=== PATIENT | female | born 1940 | race African-American/Black ===

== ENCOUNTER 2017-05-05 22:26 | Emergency (ER) | payer OTHER ==
[2017-05-05 22:40] VITALS: BP 175/86; PULSE 78; TEMP 98.5; BMI 33.8
--- NOTE | 2017-05-05 22:48 | PDOC ---
History of Present Illness - General Chief Complaint: Palpitations Stated Complaint: CHEST PAIN Time Seen by Provider: 05/05/17 22:48 - History of Present Illness Initial Comments: 05/05/17 22:55 Ms. Contreras is a 77 yo female w/ pmh of HTN, HLD, DM, CAD s/p CABG x [address] [facility], PCI with JESI SVG-OM 2011, cath 05/2014 with patent stent and grafts, 11/2015 nuclear stress test showing mild anteroapical ischemia managed with anti- anginals, and cardiac cath 03/02/16 who reports c/o a 2 hour history of palpitations and chest tightness. She says that she was reading a book when her heart started pounding radiating to her ears and she experienced the tightness in her chest. She says this has happened before but that it always resolved. She is also currently experiencing urinary frequency. The patient denies headache and dizziness. Denies fever, chills, nausea, vomit, diarrhea and constipation. Denies dysuria, urgency and hematuria. Allergies: NKDA Past History - Past Medical History Allergies/Adverse Reactions: Allergies Allergy/AdvReac Type Severity Reaction Status Date / Time No Known Allergies Allergy Verified 03/01/16 14:38 Home Medications: Ambulatory Orders Simvastatin [Zocor -] 40 mg PO HS 12/27/13 Valsartan [Diovan] 320 mg PO DAILY 12/27/13 Hydrochlorothiazide [Hctz -] 25 mg PO DAILY #30 tablet 01/22/14 Insulin Glargine,Hum.rec.anlog [Lantus (10mL VIAL) -] 28 units SQ HS #0 Acarbose [Precose -] 50 mg PO TID 05/21/14 Aspirin [ASA -] 81 mg PO DAILY #7 tab.chew 05/24/14 Glipizide [Glucotrol -] 10 mg PO BIDAC #7 tablet 05/24/14 Insulin Sliding Scale [Novolog Vial Sliding Scale -] 0 units SQ ACHS 7 Days pen 05/24/14 Isosorbide Mononitrate [Imdur -] 90 mg PO DAILY 05/18/15 Metoprolol Succinate [Toprol Xl -] 50 mg PO DAILY 03/01/16 Nitrofurantoin Monohyd/M-Cryst [Macrobid -] 100 mg PO BID #14 capsule 05/06/17 Anemia: No Asthma: No Cardiac Disorders: Yes (CORONARY ARTERIOSCLEROSIS) CVA: No COPD: No CHF: No Dementia: No Diabetes: Yes (NIDD) GI Disorders: Yes (gerd, hiatal hernia,rectal hemorrhage,gastritis) Disorders: No HTN: Yes Hypercholesterolemia: Yes Liver Disease: No Seizures: No Thyroid Disease: No - Surgical History Abdominal Surgery: Yes Appendectomy: No Cardiac Surgery: Yes (triple bypass,cardiac stents) Cholecystectomy: No Lung Surgery: No Neurologic Surgery: No Orthopedic Surgery: No - Immunization History Immunization Up to Date: Yes - Suicide/Smoking/Psychosocial Hx Smoking Status: No Smoking History: Never smoked Have you smoked in the past 12 months: No Number of Cigarettes Smoked Daily: 0 If you are a former smoker, when did you quit?: Over 30 years ago Information on smoking cessation initiated: No Hx Alcohol Use: No Drug/Substance Use Hx: No Substance Use Type: None Hx Substance Use Treatment: No Review of Systems - Review of Systems Comments:: 05/05/17 23:09 GENERAL/CONSTITUTIONAL: No fever or chills. No weakness. HEAD, EYES, EARS, NOSE AND THROAT: No change in vision. No ear pain or discharge. No sore throat. CARDIOVASCULAR: +Resolving tightness/palpitations as described. No chest pain or shortness of breath RESPIRATORY: No cough, wheezing, or hemoptysis. GASTROINTESTINAL: No nausea, vomiting, diarrhea or constipation. GENITOURINARY: +Current urinary frequency MUSCULOSKELETAL: No joint or muscle swelling or pain. No neck or back pain. SKIN: No rash NEUROLOGIC: No headache, vertigo, loss of consciousness, or change in strength/ sensation. ENDOCRINE: No increased thirst. No abnormal weight change HEMATOLOGIC/LYMPHATIC: No anemia, easy bleeding, or history of blood clots. ALLERGIC/IMMUNOLOGIC: No hives or skin allergy. *Physical Exam - Vital Signs Last Vital Signs Temp Pulse Resp BP Pulse Ox 98.5 F 78 18 175/86 97 05/05/17 22:31 05/05/17 22:31 05/05/17 22:31 05/05/17 22:31 05/05/17 22:31 - Physical Exam Comments: 05/05/17 23:10 GENERAL: Awake, alert, and fully oriented, in no acute distress HEAD: No signs of trauma, normocephalic, atraumatic EYES: PERRLA, EOMI, sclera anicteric, conjunctiva clear ENT: Auricles normal inspection, hearing grossly normal, nares patent, oropharynx clear without exudates. Moist mucosa NECK: Normal ROM, supple, no lymphadenopathy, JVD, or masses LUNGS: No distress, speaks full sentences, clear to auscultation bilaterally HEART: Regular rate and rhythm, normal S1 and S2, no murmurs, rubs or gallops, peripheral pulses normal and equal bilaterally. ABDOMEN: Soft, nontender, normoactive bowel sounds. No guarding, no rebound. No masses EXTREMITIES: Normal inspection, Normal range of motion, no edema. No clubbing or cyanosis. NEUROLOGICAL: Cranial nerves II through XII grossly intact. Normal speech, normal gait, no focal sensorimotor deficits SKIN: Warm, Dry, normal turgor, no rashes or lesions noted. Medical Decision Making - Medical Decision Making 05/06/17 01:16 Ms. Contreras is reporting resolution of symptoms currently. UTI noted on UA. Macrobid started in ER and Rx sent to patient's pharmacy. Will discharge with instructions to f/u with PCP outpatient as needed. *DC/Admit/Observation/Transfer Diagnosis at time of Disposition: UTI (urinary tract infection) Qualifiers: Urinary tract infection type: site unspecified Hematuria presence: with hematuria Qualified Code(s): N39.0 - Urinary tract infection, site not specified ; R31.9 - Hematuria, unspecified; R31.9 - Hematuria, unspecified - Discharge Dispostion Disposition: HOME - Prescriptions Prescriptions: Nitrofurantoin Monohyd/M-Cryst [Macrobid -] 100 mg PO BID #14 capsule - Referrals - Patient Instructions Printed Discharge Instructions: DI for Urinary Tract Infection (UTI) Additional Instructions: Please follow-up with your primary physician in 1-2 days for further evaluation. Take proscribed antibiotics for UTI as directed unless instructed otherwise by your primary physician. Return if any fever, chills, increase in symptoms, or any other concerning changes. - Post Discharge Activity
[2017-05-06 00:09] LABS: URINE APPEARANCE CLOUDY; URINE BILIRUBIN NEGATIVE (NEGATIVE); URINE BLOOD NEGATIVE (NEGATIVE); URINE COLOR LTYELLOW; URINE GLUCOSE (UA) NEGATIVE (NEGATIVE); URINE KETONE NEGATIVE (NEGATIVE); URINE NITRITE NEGATIVE (NEGATIVE); URINE PROTEIN NEGATIVE (NEGATIVE); URINE UROBILINOGEN NEGATIVE mg/dL (0.2-1.0)
[2017-05-06 00:10] LABS: URINE LEUK ESTERASE 3+ (NEGATIVE)
[2017-05-06 00:13] LABS: URINE BACTERIA MANY /hpf (NONE SEEN); URINE HYALINE CAST 4 /lpf; URINE MUCUS RARE; URINE RBC 12 /hpf (0-3); URINE WBC 126 /hpf (3-5)
--- NOTE | 2017-05-06 00:49 | PDOC ---
Attending Attestation - Resident Resident Name: Soham Brothers - ED Attending Attestation I have performed the following: I have examined & evaluated the patient, The case was reviewed & discussed with the resident, I agree w/resident's findings & plan - HPI HPI: 05/06/17 06:34 Pt comes with palpitations but no CP. SHe has DM and HTN. - Physicial Exam PE: 05/06/17 06:34 Exam normal. - Medical Decision Making 05/06/17 06:35 UA shows UTI; EKG normal; vitals normal on discharge, exam normal and pt is feeling better. She will go home with her son. 05/06/17 06:36
[2017-05-06] MEDS ORDERED: NITROFURANTOIN MACROCRYSTAL 50 MG CAPSULE (FP) PO SCH (01:00)
[2017-05-06] MEDS ORDERED: NITROFURANTOIN MACROCRYSTAL 50 MG CAPSULE (FP) ONE (01:15)
[2017-05-06 11:09] LABS: URINE LEUK ESTERASE 3+ (NEGATIVE)
--- NOTE | 2017-05-11 13:54 | EKG ---
Test Reason : Blood Pressure : / mmHG Vent. Rate : 079 BPM Atrial Rate : 079 BPM P-R Int : 194 ms QRS Dur : 090 ms QT Int : 388 ms P-R-T Axes : 058 034 047 degrees QTc Int : 444 ms NORMAL SINUS RHYTHM NON-SPECIFIC INTRA-VENTRICULAR CONDUCTION DELAY NONSPECIFIC ST ABNORMALITY Confirmed by ANGELA CALLOWAY MD ([id number]) on 05/11/2017 1:54:17 PM Referred By: Confirmed By:ANGELA CALLOWAY MD
== END 2017-05-06 01:26 | disposition home or self-care (01) ==
LOC: JER 22:26
DX: N39.0 Urinary tract infection, site not specified (principal); R07.89 Other chest pain; I25.10 Atherosclerotic heart disease of native coronary artery without angina pectoris; I10 Essential (primary) hypertension; Z95.1 Presence of aortocoronary bypass graft; Z95.5 Presence of coronary angioplasty implant and graft; E11.9 Type 2 diabetes mellitus without complications; E78.00 Pure hypercholesterolemia, unspecified
CPT/HCPCS: 81003; 81015; 93005; 93010; 99283-25

== ENCOUNTER 2017-09-27 16:44 | Observation (INO) | payer OTHER ==
[2017-09-27] MEDS ORDERED: ASPIRIN 81 MG CHEWABLE TABLETS PO SCH (17:15)
--- NOTE | 2017-09-27 17:24 | PDOC ---
History of Present Illness - History of Present Illness Initial Comments: 09/27/17 18:17 Patient is a 77 year old female with a significant past medical history of who presents to the ED with complaints of of chest pain that she states began earlier this afternoon. Patient reports sitting in the bus when she began to experiencing sudden chest pain. She reports chest pain is a pressured pain, that she states feels like someone if sitting on her chest. Patient reports experiencing associated symptoms of lightheadedness. She reports taking 81 mg of aspirin for chest pain with slight relief, prompting her to come into the ED for further evaluation. Denies shortness of breath. Denies trauma to affected area. Denies fever, chills. Denies dysuria, hematuria, constipation, diarrhea. Denies any other symptoms. Allergies: None Social history: No smoking. No alcohol. No illicit drugs. Surgical history: Cardiac stent. PMD: Dr. Schaffer. <Craig Cano - Last Filed: 09/27/17 18:17> - General History Source: Patient Exam Limitations: No Limitations <Thomas Walter - Last Filed: 10/12/17 09:18> - General Chief Complaint: Chest Pain Stated Complaint: CHEST PAIN Time Seen by Provider: 09/27/17 17:06 Past History <Craig Cano - Last Filed: 09/27/17 18:17> - Past Medical History Anemia: No Asthma: No Cardiac Disorders: Yes (CORONARY ARTERIOSCLEROSIS) CVA: No COPD: No CHF: No Dementia: No Diabetes: Yes (NIDD) GI Disorders: Yes (gerd, hiatal hernia,rectal hemorrhage,gastritis) Disorders: No HTN: Yes Hypercholesterolemia: Yes Liver Disease: No Seizures: No Thyroid Disease: No - Surgical History Abdominal Surgery: Yes Appendectomy: No Cardiac Surgery: Yes (triple bypass,cardiac stents) Cholecystectomy: No Lung Surgery: No Neurologic Surgery: No Orthopedic Surgery: No - Immunization History Immunization Up to Date: Yes - Suicide/Smoking/Psychosocial Hx Smoking Status: No Smoking History: Never smoked Have you smoked in the past 12 months: No Number of Cigarettes Smoked Daily: 0 If you are a former smoker, when did you quit?: Over 30 years ago Hx Alcohol Use: No Drug/Substance Use Hx: No Substance Use Type: None Hx Substance Use Treatment: No <Thomas Walter - Last Filed: 10/12/17 09:18> - Past Medical History Allergies/Adverse Reactions: Allergies Allergy/AdvReac Type Severity Reaction Status Date / Time No Known Allergies Allergy Verified 03/01/16 14:38 Home Medications: Ambulatory Orders Valsartan [Diovan] 320 mg PO DAILY 12/27/13 Acarbose [Precose -] 50 mg PO TID 05/21/14 Glipizide [Glucotrol -] 10 mg PO BIDAC #7 tablet 05/24/14 Insulin Sliding Scale [Novolog Vial Sliding Scale -] 0 units SQ ACHS 7 Days pen 05/24/14 Isosorbide Mononitrate [Imdur -] 120 mg PO DAILY 05/18/15 Metoprolol Succinate [Toprol XL -] 50 mg PO DAILY 03/01/16 Aspirin [ASA -] 81 mg PO BID 05/06/17 Insulin Glargine,Hum.rec.anlog [Lantus (10mL VIAL) -] 50 units SQ HS 05/06/17 Insulin Glargine,Hum.rec.anlog [Lantus (10mL VIAL) -] 56 units SQ HS 05/06/17 Nitrofurantoin Monohyd/M-Cryst [Macrobid -] 100 mg PO BID #14 capsule 05/06/17 Aspirin Coated [Ecotrin -] 325 mg PO DAILY #30 tablet. 09/28/17 Review of Systems - Review of Systems Able to Perform ROS?: Yes Comments:: 09/27/17 18:17 GENERAL/CONSTITUTIONAL: No fever or chills. No weakness. HEAD, EYES, EARS, NOSE AND THROAT: No change in vision. No ear pain or discharge. No sore throat. CARDIOVASCULAR: +Chest pain. No shortness of breath. RESPIRATORY: No cough, wheezing, or hemoptysis. GASTROINTESTINAL: No nausea, vomiting, diarrhea or constipation. GENITOURINARY: No dysuria, frequency, or change in urination. MUSCULOSKELETAL: No joint or muscle swelling or pain. No neck or back pain. SKIN: No rash NEUROLOGIC: No headache, vertigo, loss of consciousness, or change in strength/ sensation. ENDOCRINE: No increased thirst. No abnormal weight change. HEMATOLOGIC/LYMPHATIC: No anemia, easy bleeding, or history of blood clots. ALLERGIC/IMMUNOLOGIC: No hives or skin allergy. <Craig Cano - Last Filed: 09/27/17 18:17> *Physical Exam - Vital Signs Last Vital Signs Temp Pulse Resp BP Pulse Ox 98.0 F 74 18 157/80 95 09/27/17 17:17 09/27/17 17:17 09/27/17 17:17 09/27/17 17:17 09/27/17 17:17 - Physical Exam Comments: 09/27/17 18:17 GENERAL: Awake, alert, and fully oriented, in no acute distress HEAD: No signs of trauma EYES: PERRLA, EOMI, sclera anicteric, conjunctiva clear ENT: Auricles normal inspection, hearing grossly normal, nares patent, oropharynx clear without exudates. Moist mucosa NECK: Normal ROM, supple, no lymphadenopathy, JVD, or masses LUNGS: Breath sounds equal, clear to auscultation bilaterally. No wheezes, and no crackles HEART: Regular rate and rhythm, normal S1 and S2, no murmurs, rubs or gallops ABDOMEN: Soft, nontender, normoactive bowel sounds. No guarding, no rebound. No masses EXTREMITIES: Normal range of motion, no edema. No clubbing or cyanosis. No cords, erythema, or tenderness NEUROLOGICAL: Cranial nerves II through XII grossly intact. Normal speech, normal gait SKIN: Warm, Dry, normal turgor, no rashes or lesions noted. <Craig Cano - Last Filed: 09/27/17 18:17> Heart Score/ECG Review - History History: Highly suspicious - Electrocardiogram EKG: Non specific repolarization disturbance - Age Age: >/= 65 - Risk Factors Based on the list above the patient has:: >/=3 risk factors or Hx atherosclerotic disease #1 ECG reviewed & interpreted by me at: 17:00 09/27/17 17:23 NSR 69 with 1st degree AV block, no std/[place], nonspecific T wave abnormality, QTC 420 msec <Thomas Walter - Last Filed: 10/12/17 09:18> ED Treatment Course - LABORATORY CBC & Chemistry Diagram: 09/27/17 18:23 09/27/17 20:36 - RADIOLOGY Radiology Studies Ordered: Category Date Time Status CHEST X-RAY PORTABLE* [RAD] Stat Radiology 09/27/17 17:14 Ordered <Thomas Walter - Last Filed: 10/12/17 09:18> Medical Decision Making - Medical Decision Making 09/27/17 19:10 A portion of this note was written by my scribe, under my supervision. 77 yo F c/ significant cardiac hx presents with chest pain that feels like her prior Mis. Will need to ZURDO. Pt ordered for 243 mg aspirin (given that pt took 1 baby aspirin today). Chest xray, troponin, admit. Pt signed out to Dr. Pineda for further management and admission. <Thomas Walter - Last Filed: 10/12/17 09:18> *DC/Admit/Observation/Transfer - Attestations Scribe Attestion: 09/27/17 18:18 Documentation prepared by Craig Cano, acting as emergency medical technician for Thomas Walter MD, /DO. <Craig Cano - Last Filed: 09/27/17 18:17> <Thomas Walter - Last Filed: 10/12/17 09:18> Diagnosis at time of Disposition: Chest pain - Discharge Dispostion Disposition: HOME Condition at time of disposition: Stable
[2017-09-27 17:30] VITALS: BMI 30.2
[2017-09-27] MEDS ORDERED: ASPIRIN 81 MG CHEWABLE TABLETS ONE (18:06)
[2017-09-27 18:55] LABS: BASO % 0.6 % (0-2.0); EOS % 0.3 % (0-4.5); HEMATOCRIT 38.2 % (32.4-45.2); HEMOGLOBIN 13.3 GM/dL (10.7-15.3); LYMPH % 15.7 % (8-40); MCH 29.8 pg (25.7-33.7); MCHC 34.8 g/dl (32.0-36.0); MEAN CELL VOLUME 85.6 fl (80-96); MONO % 5.5 % (3.8-10.2); NEUT % 77.9 % (42.8-82.8); PLATELET COUNT 237 K/MM3 (134-434); RBC 4.46 M/mm3 (3.60-5.2); WHITE BLOOD COUNT 11.3 K/mm3 (4.0-10.0)
[2017-09-27 19:23] LABS: INR 1.08 (0.82-1.09); PROTHROMBIN TIME (PATIENT) 12.2 SEC (9.7-13.0)
[2017-09-27 19:26] LABS: ACTIVATED PTT 28.2 SECONDS (26.9-34.4)
[2017-09-27 21:27] LABS: ALBUMIN 3.4 g/dl (3.4-5.0); ANION GAP 6 (8-16); BILIRUBIN,TOTAL 0.5 mg/dL (0.2-1.0); BLOOD UREA NITROGEN 8 mg/dL (7-18); CALCIUM 9.6 mg/dL (8.5-10.1); CHLORIDE 111 mmol/L (98-107); CO2 27 mmol/L (21-32); CREATININE 0.7 mg/dL (0.55-1.02); GLUCOSE,RANDOM 80 mg/dL (74-106); POTASSIUM 3.5 mmol/L (3.5-5.1); SGOT/AST 21 U/L (15-37); SGPT/ALT 24 U/L (12-78); SODIUM 144 mmol/L (136-145); TOT PROT 6.5 g/dl (6.4-8.2)
[2017-09-27 21:30] LABS: ALK PHOS 107 U/L (45-117)
--- NOTE | 2017-09-27 21:52 | PDOC ---
*Physical Exam - Vital Signs Last Vital Signs Temp Pulse Resp BP Pulse Ox 98.0 F 74 18 157/80 95 09/27/17 17:17 09/27/17 17:17 09/27/17 17:17 09/27/17 17:17 09/27/17 17:17 ED Treatment Course - LABORATORY CBC & Chemistry Diagram: 09/27/17 18:23 09/27/17 20:36 - ADDITIONAL ORDERS Additional order review: Laboratory Results 09/27/17 09/27/17 09/27/17 20:36 18:23 18:23 PT with INR 12.20 INR 1.08 PTT (Actin FS) 28.2 Sodium 144 Cancelled Potassium 3.5 Cancelled Chloride 111 H Cancelled Carbon Dioxide 27 Cancelled Anion Gap 6 L Cancelled BUN 8 Cancelled Creatinine 0.7 Cancelled Creat Clearance w eGFR > 60 Cancelled Random Glucose 80 Cancelled Calcium 9.6 Cancelled Phosphorus Cancelled Magnesium Cancelled Total Bilirubin 0.5 Cancelled AST 21 Cancelled ALT 24 Cancelled Alkaline Phosphatase 107 Cancelled Creatine Kinase 126 Cancelled Troponin I 0.05 Cancelled B-Natriuretic Peptide Cancelled Total Protein 6.5 Cancelled Albumin 3.4 Cancelled 09/27/17 18:23 RBC 4.46 MCV 85.6 MCHC 34.8 RDW 14.0 MPV 8.0 Neutrophils % 77.9 D Lymphocytes % 15.7 D Monocytes % 5.5 Eosinophils % 0.3 Basophils % 0.6 Medical Decision Making - Medical Decision Making 09/27/17 21:54 Pt stable at this time. CE negative at this time. Will admit to Tele Obs *DC/Admit/Observation/Transfer Diagnosis at time of Disposition: Chest pain - Discharge Dispostion Condition at time of disposition: Stable Decision to Admit order: Yes - Referrals Referrals: Mavis Schaffer MD [Primary Care Provider] - - Patient Instructions - Post Discharge Activity
[2017-09-28] MEDS: glipiZIDE 10 MG TABLET (FP) PO SCH ×3 (06:28→17:32)
[2017-09-28] MEDS ORDERED: LISINOPRIL 5 MG TABLET (FP) PO SCH (06:30)
--- NOTE | 2017-09-28 09:42 | EKG ---
Test Reason : Blood Pressure : / mmHG Vent. Rate : 069 BPM Atrial Rate : 069 BPM P-R Int : 236 ms QRS Dur : 088 ms QT Int : 392 ms P-R-T Axes : 047 009 040 degrees QTc Int : 420 ms SINUS RHYTHM WITH 1ST DEGREE A-V BLOCK POSSIBLE LEFT ATRIAL ENLARGEMENT NONSPECIFIC T WAVE ABNORMALITY ABNORMAL ECG Confirmed by ANGELA CALLOWAY MD ([id number]) on 09/28/2017 9:42:43 AM Referred By: Confirmed By:ANGELA CALLOWAY MD
[2017-09-28] MEDS ORDERED: ISOSORBIDE MONONITRATE 60 MG TAB.SR.24H (FP) PO SCH (10:00)
--- NOTE | 2017-09-28 12:10 | HP ---
Admitting History and Physical - Primary Care Physician PCP: Mavis Schaffer - Admission History of Present Illness: 77 year old female with a significant past medical history of who presents to the ED with complaints of of chest pain that she states began earlier this afternoon. Patient reports sitting in the bus when she began to experiencing sudden chest pain. She reports chest pain is a pressured pain, that she states feels like someone if sitting on her chest. Patient reports experiencing associated symptoms of lightheadedness. She reports taking 81 mg of aspirin for chest pain with slight relief, prompting her to come into the ED for further evaluation. History Source: Family Member ([email or web address]) - Past Medical History Cardiovascular: Yes: CAD, HTN, Hyperlipdemia Pulmonary: Yes: Asthma Gastrointestinal: Yes: Gastritis, GERD ...: No ENT: Yes: Other (vertigo) Endocrine: Yes: Diabetes Mellitus - Past Surgical History Past Surgical History: Yes: CABG, Stent - Smoking History Smoking history: Former smoker Have you smoked in the past 12 months: No Aproximately how many cigarettes per day: 0 If you are a former smoker, when did you quit?: Over 30 years ago - Alcohol/Substance Use Hx Alcohol Use: No - Social History ADL: Independent History of Recent Travel: No Home Medications - Allergies Allergies/Adverse Reactions: Allergies Allergy/AdvReac Type Severity Reaction Status Date / Time No Known Allergies Allergy Verified 03/01/16 14:38 - Home Medications Home Medications: Ambulatory Orders Valsartan [Diovan] 320 mg PO DAILY 12/27/13 Acarbose [Precose -] 50 mg PO TID 05/21/14 Glipizide [Glucotrol -] 10 mg PO BIDAC #7 tablet 05/24/14 Insulin Sliding Scale [Novolog Vial Sliding Scale -] 0 units SQ ACHS 7 Days pen 05/24/14 Isosorbide Mononitrate [Imdur -] 120 mg PO DAILY 05/18/15 Metoprolol Succinate [Toprol XL -] 50 mg PO DAILY 03/01/16 Aspirin [ASA -] 81 mg PO BID 05/06/17 Insulin Glargine,Hum.rec.anlog [Lantus (10mL VIAL) -] 50 units SQ HS 05/06/17 Insulin Glargine,Hum.rec.anlog [Lantus (10mL VIAL) -] 56 units SQ HS 05/06/17 Nitrofurantoin Monohyd/M-Cryst [Macrobid -] 100 mg PO BID #14 capsule 05/06/17 Aspirin Coated [Ecotrin -] 325 mg PO DAILY #30 tablet. 09/28/17 Physical Examination Vital Signs: Vital Signs Temperature 97.7 F 09/28/17 05:36 Pulse Rate 69 09/28/17 10:00 Respiratory Rate 20 09/28/17 10:00 Blood Pressure 131/82 09/28/17 10:00 O2 Sat by Pulse Oximetry (%) 97 09/28/17 08:38 Constitutional: Yes: No Distress HENT: Yes: Atraumatic Neck: Yes: Supple Cardiovascular: Yes: Regular Rate and Rhythm Respiratory: Yes: CTA Bilaterally Gastrointestinal: Yes: Normal Bowel Sounds Extremities: Yes: WNL Edema: No Peripheral Pulses WNL: Yes Neurological: Yes: Alert, Oriented Labs: CBC, BMP 09/27/17 18:23 09/27/17 20:36 Problem List - Problems (1) Chest pain Assessment/Plan: tele monitoring fu cardiac enzymes cardiology consult echo Code(s): R07.9 - CHEST PAIN, UNSPECIFIED (2) Diabetes Assessment/Plan: continue home emeds bgms Code(s): E11.9 - TYPE 2 DIABETES MELLITUS WITHOUT COMPLICATIONS (3) HLD (hyperlipidemia) Code(s): E78.5 - HYPERLIPIDEMIA, UNSPECIFIED (4) HTN (hypertension) Assessment/Plan: on meds stable Code(s): I10 - ESSENTIAL (PRIMARY) HYPERTENSION Assessment/Plan Laboratory Tests 09/27/17 09/27/17 09/27/17 18:23 18:23 18:23 WBC 11.3 H RBC 4.46 Hgb 13.3 Hct 38.2 MCV 85.6 MCH 29.8 MCHC 34.8 RDW 14.0 Plt Count 237 MPV 8.0 Neutrophils % 77.9 D Lymphocytes % 15.7 D Monocytes % 5.5 Eosinophils % 0.3 Basophils % 0.6 PT with INR 12.20 INR 1.08 PTT (Actin FS) 28.2 Sodium Cancelled Potassium Cancelled Chloride Cancelled Carbon Dioxide Cancelled Anion Gap Cancelled BUN Cancelled Creatinine Cancelled Creat Clearance w eGFR Cancelled POC Glucometer Random Glucose Cancelled Calcium Cancelled Phosphorus Cancelled Magnesium Cancelled Total Bilirubin Cancelled AST Cancelled ALT Cancelled Alkaline Phosphatase Cancelled Creatine Kinase Cancelled Troponin I Cancelled B-Natriuretic Peptide Cancelled Total Protein Cancelled Albumin Cancelled 09/27/17 09/28/17 09/28/17 20:36 01:40 05:34 WBC RBC Hgb Hct MCV MCH MCHC RDW Plt Count MPV Neutrophils % Lymphocytes % Monocytes % Eosinophils % Basophils % PT with INR INR PTT (Actin FS) Sodium 144 Potassium 3.5 Chloride 111 H Carbon Dioxide 27 Anion Gap 6 L BUN 8 Creatinine 0.7 Creat Clearance w eGFR > 60 POC Glucometer 109 Random Glucose 80 Calcium 9.6 Phosphorus Magnesium Total Bilirubin 0.5 AST 21 ALT 24 Alkaline Phosphatase 107 Creatine Kinase 126 115 Troponin I 0.05 0.05 B-Natriuretic Peptide Total Protein 6.5 Albumin 3.4 Active Medications Generic Name Dose Route Start Last Admin Trade Name Freq PRN Reason Stop Dose Admin Glipizide 10 mg 09/28/17 07:00 09/28/17 06:28 Glucotrol - PO 10 mg BIDAC BRITT Administration Insulin Detemir 50 units 09/28/17 22:00 Levemir Vial SQ HS [facility] Isosorbide Mononitrate 120 mg 09/28/17 10:00 09/28/17 09:15 Imdur - PO 120 mg DAILY BIRTT Administration Lisinopril 5 mg 09/28/17 06:30 09/28/17 06:28 Prinivil PO 5 mg DAILY BRITT Administration Metoprolol Succinate 50 mg 09/28/17 10:00 09/28/17 09:15 Toprol Xl - PO 50 mg DAILY BRITT Administration
[2017-09-28] MEDS ORDERED: ASPIRIN 325 MG ENTERIC COATED TABLET (FP) PO SCH (12:15)
--- NOTE | 2017-09-28 12:15 | CON.CARD ---
Consult Consult Specialty:: Cardiology Reason for Consultation:: cp - History of Present Illness History of Present Illness: Patient is a 77 year old female with a significant past medical history of who presents to the ED with complaints of of chest pain that she states began earlier this afternoon. Patient reports sitting in the bus when she began to experiencing sudden chest pain. She reports chest pain is a pressured pain, that she states feels like someone if sitting on her chest. Patient reports experiencing associated symptoms of lightheadedness. She reports taking 81 mg of aspirin for chest pain with slight relief, prompting her to come into the ED for further evaluation. Denies shortness of breath. Denies trauma to affected area. Denies fever, chills. Denies dysuria, hematuria, constipation, diarrhea. Denies any other symptoms. Allergies: None Social history: No smoking. No alcohol. No illicit drugs. Surgical history: Cardiac stent. PMD: Dr. Schaffer. - Past Medical History Cardio/Vascular: Yes: CAD, HTN, Hyperlipdemia Pulmonary: Yes: Asthma Gastrointestinal: Yes: Gastritis, GERD ...: No ENT: Yes: Other (vertigo) Endocrine: Yes: Diabetes Mellitus - Past Surgical History Past Surgical History: Yes: CABG, Stent - Alcohol/Substance Use Hx Alcohol Use: No - Smoking History Smoking history: Former smoker Have you smoked in the past 12 months: No Aproximately how many cigarettes per day: 0 If you are a former smoker, when did you quit?: Over 30 years ago - Social History ADL: Independent History of Recent Travel: No Home Medications - Allergies Allergies/Adverse Reactions: Allergies Allergy/AdvReac Type Severity Reaction Status Date / Time No Known Allergies Allergy Verified 03/01/16 14:38 - Home Medications Home Medications: Ambulatory Orders Valsartan [Diovan] 320 mg PO DAILY 12/27/13 Acarbose [Precose -] 50 mg PO TID 05/21/14 Glipizide [Glucotrol -] 10 mg PO BIDAC #7 tablet 05/24/14 Insulin Sliding Scale [Novolog Vial Sliding Scale -] 0 units SQ ACHS 7 Days pen 05/24/14 Isosorbide Mononitrate [Imdur -] 120 mg PO DAILY 05/18/15 Metoprolol Succinate [Toprol Xl -] 50 mg PO DAILY 03/01/16 Aspirin [ASA -] 81 mg PO BID 05/06/17 Insulin Glargine,Hum.rec.anlog [Lantus (10mL VIAL) -] 50 units SQ HS 05/06/17 Insulin Glargine,Hum.rec.anlog [Lantus (nf)] 56 units SQ HS 05/06/17 Nitrofurantoin Monohyd/M-Cryst [Macrobid -] 100 mg PO BID #14 capsule 05/06/17 Review of Systems - Review of Systems Constitutional: reports: No Symptoms Eyes: reports: No Symptoms HENT: reports: No Symptoms Neck: reports: No Symptoms Cardiovascular: reports: Chest Pain Gastrointestinal: reports: No Symptoms Genitourinary: reports: No Symptoms Breasts: reports: No Symptoms Reported Musculoskeletal: reports: No Symptoms Integumentary: reports: No Symptoms Neurological: reports: No Symptoms Endocrine: reports: No Symptoms Hematology/Lymphatic: reports: No Symptoms Psychiatric: reports: No Symptoms Vital Signs: Vital Signs Temperature 97.7 F 09/28/17 05:36 Pulse Rate 69 09/28/17 10:00 Respiratory Rate 20 09/28/17 10:00 Blood Pressure 131/82 09/28/17 10:00 O2 Sat by Pulse Oximetry (%) 97 09/28/17 08:38 Constitutional: Yes: Well Nourished, No Distress, Calm Eyes: Yes: WNL, Conjunctiva Clear, EOM Intact HENT: Yes: WNL, Atraumatic, Normocephalic Neck: Yes: WNL, Supple, Trachea Midline Respiratory: Yes: WNL, Regular, CTA Bilaterally Gastrointestinal: Yes: WNL, Normal Bowel Sounds Renal/: Yes: WNL Cardiovascular: Yes: WNL, Regular Rate and Rhythm Musculoskeletal: Yes: WNL Extremities: Yes: WNL Integumentary: Yes: WNL Neurological: Yes: WNL, Alert, Oriented ...Motor Strength: WNL Psychiatric: Yes: WNL, Alert, Oriented - Other Data Labs, Other Data: CBC, BMP 09/27/17 18:23 09/27/17 20:36 INR, PTT INR 1.08 (0.82-1.09) 09/27/17 18:23 Troponin, BNP 09/27/17 09/27/17 09/28/17 18:23 20:36 01:40 Troponin I Cancelled 0.05 0.05 B-Natriuretic Peptide Cancelled Troponin, BNP 09/27/17 09/27/17 09/28/17 18:23 20:36 01:40 Troponin I Cancelled 0.05 0.05 B-Natriuretic Peptide Cancelled Imaging - Results Chest X-ray: Image Reviewed (no i/e) EKG: Image Reviewed (sr i st degree AVB rep abn) Assessment/Plan ashd angina s/p pci s/p cabg hlp htn dm echo nl ef Plan add asa r/o mi will need mibi st for risk stratification keep LDL below 70 mg/dl
--- NOTE | 2017-09-28 18:39 | DS ---
Physical Examination Vital Signs: Vital Signs Temperature 97.8 F 09/28/17 14:00 Pulse Rate 64 09/28/17 14:00 Respiratory Rate 20 09/28/17 14:00 Blood Pressure 152/81 09/28/17 14:00 O2 Sat by Pulse Oximetry (%) 97 09/28/17 08:38 Constitutional: Yes: No Distress HENT: Yes: Atraumatic Neck: Yes: Supple Cardiovascular: Yes: Regular Rate and Rhythm Respiratory: Yes: CTA Bilaterally Gastrointestinal: Yes: Normal Bowel Sounds Extremities: Yes: WNL Neurological: Yes: Alert, Oriented Labs: CBC, BMP 09/27/17 18:23 09/27/17 20:36 Discharge Summary Reason For Visit: CHEST PAIN Current Active Problems Chest pain (Acute) Condition: Stable - Instructions Referrals: Mavis Schaffer MD [Primary Care Provider] - - Home Medications Comprehensive Discharge Medication List: Ambulatory Orders Valsartan [Diovan] 320 mg PO DAILY 12/27/13 Acarbose [Precose -] 50 mg PO TID 05/21/14 Glipizide [Glucotrol -] 10 mg PO BIDAC #7 tablet 05/24/14 Insulin Sliding Scale [Novolog Vial Sliding Scale -] 0 units SQ ACHS 7 Days pen 05/24/14 Isosorbide Mononitrate [Imdur -] 120 mg PO DAILY 05/18/15 Metoprolol Succinate [Toprol XL -] 50 mg PO DAILY 03/01/16 Aspirin [ASA -] 81 mg PO BID 05/06/17 Insulin Glargine,Hum.rec.anlog [Lantus (10mL VIAL) -] 50 units SQ HS 05/06/17 Insulin Glargine,Hum.rec.anlog [Lantus (10mL VIAL) -] 56 units SQ HS 05/06/17 Nitrofurantoin Monohyd/M-Cryst [Macrobid -] 100 mg PO BID #14 capsule 05/06/17 Aspirin Coated [Ecotrin -] 325 mg PO DAILY #30 tablet. 09/28/17 [facility]
[2017-09-28 18:55] VITALS: BP 114/57; PULSE 48; TEMP 98.1
[2017-09-28] MEDS ORDERED: INSULIN (LEVEMIR) 100 UNITS/ML UNITS SQ SCH (22:00)
== END 2017-09-28 19:53 | disposition home or self-care (01) ==
LOC: JER 16:44 → JERBED 21:52 → J4W 09-28 01:18
PROVIDERS: ADMIT Internal Medicine; ATTEND Internal Medicine
DX: R07.9 Chest pain, unspecified (principal); I10 Essential (primary) hypertension; I25.10 Atherosclerotic heart disease of native coronary artery without angina pectoris; E11.9 Type 2 diabetes mellitus without complications; E78.5 Hyperlipidemia, unspecified; K21.9 Gastro-esophageal reflux disease without esophagitis; K44.9 Diaphragmatic hernia without obstruction or gangrene; Z79.4 Long term (current) use of insulin; Z95.1 Presence of aortocoronary bypass graft; Z95.5 Presence of coronary angioplasty implant and graft; Z79.82 Long term (current) use of aspirin; J45.909 Unspecified asthma, uncomplicated; Z87.891 Personal history of nicotine dependence
CPT/HCPCS: 36415; 71045-TC-FY; 80053; 82550; 82962; 84484; 85025; 85610; 85730; 93005; 93010; 93306-TC; 99285-25; G0378

== ENCOUNTER 2017-11-10 02:25 | Emergency (ER) | payer OTHER ==
[2017-11-10 03:20] VITALS: BP 173/91; PULSE 66; TEMP 98.9; BMI 33.0
[2017-11-10] MEDS ORDERED: KETOROLAC TROMETHAMINE 15 MG/ML VIAL IVPUSH ONE (03:48)
[2017-11-10] MEDS ORDERED: ACETAMINOPHEN 325 MG TABLET (FP) PO ONE (03:48)
--- NOTE | 2017-11-10 04:13 | PDOC ---
History of Present Illness - General Chief Complaint: Pain, Acute Stated Complaint: LT SHOULDER PAIN Time Seen by Provider: 11/10/17 03:35 History Source: Patient Exam Limitations: No Limitations - History of Present Illness Initial Comments: 11/10/17 03:58 Patient is a 77F with history of MT & CAD s/p stenting and CABG, DM and HTN who is coming in today complaining of left shoulder pain for the past three days. The pain is worse in a triangle from her neck to her shoulder to her lower mid back. The pain is worsened with movement of her left arm and palpation of the muscle. Patient denies shortness of breath, fever, and chills. She does state that the pain in her shoulder does radiate to her chest after a few days of shoulder pain. She states that this feels very different than her prior heart attacks. She states that she took tylenol with moderate relief. Denies leg swelling, cough, prior blood clots. Past History - Past Medical History Allergies/Adverse Reactions: Allergies Allergy/AdvReac Type Severity Reaction Status Date / Time No Known Allergies Allergy Verified 03/01/16 14:38 Home Medications: Ambulatory Orders Valsartan [Diovan] 320 mg PO DAILY 12/27/13 Acarbose [Precose -] 50 mg PO TID 05/21/14 Glipizide [Glucotrol -] 10 mg PO BIDAC #7 tablet 05/24/14 Insulin Sliding Scale [Novolog Vial Sliding Scale -] 0 units SQ ACHS 7 Days pen 05/24/14 Isosorbide Mononitrate [Imdur -] 120 mg PO DAILY 05/18/15 Metoprolol Succinate [Toprol XL -] 50 mg PO DAILY 03/01/16 Aspirin [ASA -] 81 mg PO BID 05/06/17 Insulin Glargine,Hum.rec.anlog [Lantus (10mL VIAL) -] 50 units SQ HS 05/06/17 Insulin Glargine,Hum.rec.anlog [Lantus (10mL VIAL) -] 56 units SQ HS 05/06/17 Aspirin Coated [Ecotrin -] 325 mg PO DAILY #30 tablet. 09/28/17 Anemia: No Asthma: No Cardiac Disorders: Yes (CORONARY ARTERIOSCLEROSIS) CVA: No COPD: No CHF: No Dementia: No Diabetes: Yes (NIDD) GI Disorders: Yes (gerd, hiatal hernia,rectal hemorrhage,gastritis) Disorders: No HTN: Yes Hypercholesterolemia: Yes Liver Disease: No Seizures: No Thyroid Disease: No - Surgical History Abdominal Surgery: Yes Appendectomy: No Cardiac Surgery: Yes (triple bypass,cardiac stents) Cholecystectomy: No Lung Surgery: No Neurologic Surgery: No Orthopedic Surgery: No - Immunization History Immunization Up to Date: Yes - Suicide/Smoking/Psychosocial Hx Smoking Status: No Smoking History: Never smoked Have you smoked in the past 12 months: No Number of Cigarettes Smoked Daily: 0 If you are a former smoker, when did you quit?: Over 30 years ago Hx Alcohol Use: No Drug/Substance Use Hx: No Substance Use Type: None Hx Substance Use Treatment: No Review of Systems - Review of Systems Comments:: 11/10/17 04:13 GENERAL/CONSTITUTIONAL: No fever or chills. No weakness. HEAD, EYES, EARS, NOSE AND THROAT: No change in vision. No sore throat. CARDIOVASCULAR: No chest pain or shortness of breath RESPIRATORY: No cough, wheezing, or hemoptysis. GASTROINTESTINAL: No nausea, vomiting, diarrhea or constipation. GENITOURINARY: No dysuria, frequency, or change in urination. MUSCULOSKELETAL: +L shoulder pain. No neck or back pain. SKIN: No rash NEUROLOGIC: No headache, vertigo, loss of consciousness, or change in strength/ sensation. ENDOCRINE: No increased thirst. No abnormal weight change HEMATOLOGIC/LYMPHATIC: No anemia, easy bleeding, or history of blood clots. ALLERGIC/IMMUNOLOGIC: No hives or skin allergy. *Physical Exam - Vital Signs Last Vital Signs Temp Pulse Resp BP Pulse Ox 98.9 F 66 18 173/91 97 11/10/17 03:17 11/10/17 03:17 11/10/17 03:17 11/10/17 03:17 11/10/17 03:17 - Physical Exam Comments: 11/10/17 04:13 GENERAL: Awake, alert, and fully oriented, in no acute distress L Shoulder: Neurovascularly intact, full ROM, tender along trapezius, no midline tenderness HEAD: No signs of trauma, normocephalic, atraumatic EYES: PERRLA, EOMI, sclera anicteric, conjunctiva clear ENT: Auricles normal inspection, hearing grossly normal, nares patent, oropharynx clear without exudates. Moist mucosa NECK: Normal ROM, supple, no lymphadenopathy, JVD, or masses LUNGS: No distress, speaks full sentences, clear to auscultation bilaterally HEART: Regular rate and rhythm, normal S1 and S2, no murmurs, rubs or gallops, peripheral pulses normal and equal bilaterally. ABDOMEN: Soft, nontender, normoactive bowel sounds. No guarding, no rebound. No masses EXTREMITIES: Normal inspection, Normal range of motion, no edema. No clubbing or cyanosis. NEUROLOGICAL: Cranial nerves II through XII grossly intact. Normal speech, no focal sensorimotor deficits SKIN: Warm, Dry, normal turgor, no rashes or lesions noted. ED Treatment Course - LABORATORY CBC & Chemistry Diagram: 11/10/17 04:30 11/10/17 04:24 - RADIOLOGY Radiology Studies Ordered: Category Date Time Status CXRPORT [CHEST X-RAY PORTABLE*] [RAD] Stat Radiology 11/10/17 03:47 Ordered Medical Decision Making - Medical Decision Making 11/10/17 04:14 Patient is 77F with history of MT/CAD s/p stenting and CABG, HTN, and DM here today with left shoulder pain. Vital signs normal and stable. Pain has been constant for past three days. Do not suspect that patient is having MT given history and physical, but will evaluate with cardiac workup. Will give tylenol and toradol for pain control. If workup is normal, believe that patient is not having cardiac ischemia and will discharge home. 11/10/17 06:26 Laboratory Tests 11/10/17 11/10/17 11/10/17 04:24 04:30 04:30 WBC 10.7 H Hgb 13.7 Plt Count 250 INR 1.04 BUN 9 Creatinine 0.8 Troponin I 0.04 CBC normal. CMP reassuring. Troponin detectable but still below threshold. Pain has improved with toradol and tylenol. Will discharge with return precautions and PCP follow up. *DC/Admit/Observation/Transfer Diagnosis at time of Disposition: Shoulder pain - Discharge Dispostion Disposition: HOME Condition at time of disposition: Good Decision to Admit order: No - Referrals Referrals: Mavis Schaffer MD [Primary Care Provider] - - Patient Instructions Printed Discharge Instructions: DI for Shoulder Pain Additional Instructions: Please return if you have any new, worsening or concerning symptoms. Please follow up with your primary care physician this week. Please take tylenol 650mg 4 times per day. - Post Discharge Activity
[2017-11-10] MEDS ORDERED: ACETAMINOPHEN 325 MG TABLET (FP) ONE (04:24)
[2017-11-10] MEDS ORDERED: KETOROLAC TROMETHAMINE 15 MG/ML VIAL ONE (04:24)
[2017-11-10 04:56] LABS: BASO % 0.7 % (0-2.0); EOS % 1.3 % (0-4.5); HEMOGLOBIN 13.7 GM/dL (10.7-15.3); LYMPH % 22.4 % (8-40); MCHC 34.2 g/dl (32.0-36.0); MEAN CELL VOLUME 84.7 fl (80-96); MEAN PLT VOLUME 8.1 fl (7.5-11.1); MONO % 6.5 % (3.8-10.2); NEUT % 69.1 % (42.8-82.8); PLATELET COUNT 250 K/MM3 (134-434); RBC 4.73 M/mm3 (3.60-5.2); RDW 13.9 % (11.6-15.6); WHITE BLOOD COUNT 10.7 K/mm3 (4.0-10.0)
--- NOTE | 2017-11-10 05:02 | PDOC ---
Attending Attestation - Resident Resident Name: [email or web address] - ED Attending Attestation I have performed the following: I have examined & evaluated the patient, The case was reviewed & discussed with the resident, I agree w/resident's findings & plan, Exceptions are as noted - Medical Decision Making 11/10/17 05:01 77yoF hx of CAD, RI, CABG presents w/ L shoulder/scapula pain x 3 days, constant , distinctly different from her RI pain, worse w/ use of shoulder, relieved w/ tylenol. - labs w/ tn for pt w/ constant pain x 3 days - cxr - ekg - ibuprofen - if all unremarkable, can DC home. <Dottie Pierre - Last Filed: 11/10/17 05:01> - HPI HPI: 11/10/17 06:50 Patient is a 77 year old female with a significant past medical history of CAD, HTN, Hyperlipidemia, Asthma, Gastritis, GERD, vertigo, Diabetes Mellitus, who presents to the ED with complaints of left shoulder pain that began x3 days ago. Patient reports experiencing gradual left shoulder pain that she states from her left shoulder to her neck and down her spine. She reports experiencing an achy sensation in her left breast. Patient reports pain to be different than her past MIs. She reports taking tylenol for her pain with minimal relief, prompting her to come into the ED for further evaluation. Denies chest pain, Sob. Denies nausea, vomiting. Denies contact with sick individuals, out of state travelling. Denies diarrhea, constipation, dysuria, hematuria. Denies any other symptoms. Allergies: None Social history: No smoking. No alcohol. No illicit drugs. Surgical history: PMD: Dr. Schaffer - Physicial Exam PE: 11/10/17 06:50 General Physical Exam: NAD EOMI, JOSETTE MMM, OP WNL NCAT, no midline cervical tenderness RRR, nl s1/s2, no m/r/g CTABL, no w/r/r Soft, NTND Palpation spasm on trapezius muscle with tenderness. No edema, WWP, no rash Neuro grossly intact, gait WNL, moving all 4 A&O x 3, mood/affect WNL. <Craig Cano - Last Filed: 11/10/17 06:51>
[2017-11-10 05:37] LABS: INR 1.04 (0.82-1.09); PROTHROMBIN TIME (PATIENT) 11.7 SEC (9.7-13.0)
[2017-11-10 06:14] LABS: ALBUMIN 3.6 g/dl (3.4-5.0); ANION GAP 6 (8-16); BILIRUBIN,TOTAL 0.5 mg/dL (0.2-1.0); BLOOD UREA NITROGEN 9 mg/dL (7-18); CALCIUM 9.8 mg/dL (8.5-10.1); CHLORIDE 107 mmol/L (98-107); CO2 27 mmol/L (21-32); CREATININE 0.8 mg/dL (0.55-1.02); GLUCOSE,RANDOM 161 mg/dL (74-106); MAGNESIUM 1.5 mg/dL (1.8-2.4); POTASSIUM 3.9 mmol/L (3.5-5.1); SGOT/AST 24 U/L (15-37); SGPT/ALT 28 U/L (12-78); SODIUM 140 mmol/L (136-145); TOT PROT 7.1 g/dl (6.4-8.2)
[2017-11-10 06:17] LABS: ALK PHOS 118 U/L (45-117)
--- NOTE | 2017-11-12 21:55 | EKG ---
Test Reason : Blood Pressure : / mmHG Vent. Rate : 063 BPM Atrial Rate : 063 BPM P-R Int : 224 ms QRS Dur : 092 ms QT Int : 406 ms P-R-T Axes : 043 013 017 degrees QTc Int : 415 ms SINUS RHYTHM WITH SINUS ARRHYTHMIA WITH 1ST DEGREE A-V BLOCK OTHERWISE NORMAL ECG WHEN COMPARED WITH ECG OF 27-SEP-2017 16:56, NO SIGNIFICANT CHANGE WAS FOUND Confirmed by FLORIDA NICOLE MD ([id number]) on 11/12/2017 9:55:31 PM Referred By: Confirmed By:FLORIDA NICOLE MD
== END 2017-11-10 07:02 | disposition home or self-care (01) ==
LOC: JER 02:25
PROC: 3E0333Z Introduction of Anti-inflammatory into Peripheral Vein, Percutaneous Approach (ICD-10-PCS; principal; 2017-11-10)
DX: M62.838 Other muscle spasm (principal); I25.2 Old myocardial infarction; I25.10 Atherosclerotic heart disease of native coronary artery without angina pectoris; I10 Essential (primary) hypertension; Z95.1 Presence of aortocoronary bypass graft; Z95.5 Presence of coronary angioplasty implant and graft; E11.9 Type 2 diabetes mellitus without complications; Z79.4 Long term (current) use of insulin; Z79.84 Long term (current) use of oral hypoglycemic drugs; Z87.19 Personal history of other diseases of the digestive system
CPT/HCPCS: 36415; 71045-TC-FY; 80053; 82550; 83735; 84484; 85025; 85610; 93005; 93010; 96374; 99283-25

== ENCOUNTER 2018-07-06 18:36 | Inpatient (IN) | payer OTHER ==
[2018-07-06 18:44] VITALS: BMI 32.9
--- NOTE | 2018-07-06 19:11 | PDOC ---
History of Present Illness - General Chief Complaint: Chest Pain Stated Complaint: CHEST PAIN Time Seen by Provider: 07/06/18 19:11 History Source: Patient Exam Limitations: No Limitations - History of Present Illness Initial Comments: 07/06/18 19:31 78 year old female with PMH PA (2005), CABG (2005), coronary stent, HTN, HLD, DM presented to ED for chest pain x7 days. Pt stated her pain is intermittent, located to the left chest and substernally, no aggravating or alleviating factors, no radiation. Pt stated today's episode of chest pain began at 0800 today, lasted until [id number] today then self resovled. Pt stated her pain then returned at [id number] today, and since the pain lasted longer today than any other day, she decided to come to the ED. Pt stated her pain is associated with nausea, bilateral arm numbness (chronic), lightheadedness. Pt stated she has taken all of her medication as prescribed. Allergies: NKDA Past History - Past Medical History Allergies/Adverse Reactions: Allergies Allergy/AdvReac Type Severity Reaction Status Date / Time No Known Allergies Allergy Verified 07/06/18 18:44 Home Medications: Ambulatory Orders Valsartan [Diovan] 320 mg PO DAILY 12/27/13 Acarbose [Precose -] 50 mg PO TID 05/21/14 Glipizide [Glucotrol -] 10 mg PO BIDAC #7 tablet 05/24/14 Insulin Sliding Scale [Novolog Vial Sliding Scale -] 0 units SQ ACHS 7 Days pen 05/24/14 Isosorbide Mononitrate [Imdur -] 120 mg PO DAILY 05/18/15 Metoprolol Succinate [Toprol XL -] 50 mg PO DAILY 03/01/16 Aspirin [ASA -] 81 mg PO BID 05/06/17 Insulin Glargine,Hum.rec.anlog [Lantus (10mL VIAL) -] 50 units SQ HS 05/06/17 Insulin Glargine,Hum.rec.anlog [Lantus (10mL VIAL) -] 56 units SQ HS 05/06/17 Aspirin Coated [Ecotrin -] 325 mg PO DAILY #30 tablet. 09/28/17 Anemia: No Asthma: No Cardiac Disorders: Yes (CORONARY ARTERIOSCLEROSIS) CVA: No COPD: No CHF: No Dementia: No Diabetes: Yes (NIDD) GI Disorders: Yes (gerd, hiatal hernia,rectal hemorrhage,gastritis) Disorders: No HTN: Yes Hypercholesterolemia: Yes Liver Disease: No Seizures: No Thyroid Disease: No - Surgical History Abdominal Surgery: Yes Appendectomy: No Cardiac Surgery: Yes (triple bypass,cardiac stents) Cholecystectomy: No Lung Surgery: No Neurologic Surgery: No Orthopedic Surgery: No - Immunization History Immunization Up to Date: Yes - Suicide/Smoking/Psychosocial Hx Smoking Status: No Smoking History: Never smoked Have you smoked in the past 12 months: No Number of Cigarettes Smoked Daily: 0 If you are a former smoker, when did you quit?: Over 30 years ago Hx Alcohol Use: No Drug/Substance Use Hx: No Substance Use Type: None Hx Substance Use Treatment: No Review of Systems - Review of Systems Able to Perform ROS?: Yes Comments:: 07/06/18 19:36 General: admitted to generalized weakness. denied fever, chills, night sweats. HEENT: denied sore throat, rhinorrhea, ear pain. Heart: admitted to chest pain. denied palpitations, syncope, lower extremity swelling, diaphoresis. Respiratory: denied shortness of breath, cough, sputum production, hemoptysis. Abdomen: denied abdominal pain, nausea, vomiting, diarrhea, constipation, blood in stool. : denied dysuria, increased urinary frequency, hematuria, urinary incontinence , flank pain. Back: denied back pain. Musculoskeletal: denied joint pain, muscle pain, joint swelling. Neurological: denied headache, dizziness, numbness, tingling, weakness. Skin: denied rash, laceration, abrasion. *Physical Exam - Vital Signs Last Vital Signs Temp Pulse Resp BP Pulse Ox 97.9 F 73 18 170/74 97 07/06/18 18:41 07/06/18 18:41 07/06/18 18:41 07/06/18 18:41 07/06/18 18:41 - Physical Exam Comments: 07/06/18 19:37 Constitutional: Well-nourished, Well-developed, appearing stated age. HEENT: head is normocephalic, atraumatic. EOMI. PERRLA. Neck: supple. Full ROM. Heart: regular rhythm. loud S2. Lungs: clear to auscultation bilaterally. no crackles, rhonchi or wheezing. no stridor. Abdomen: soft, nontender. normal bowel sounds. no rebound, guarding, masses. Extremities: Peripheral pulses intact and equal. No lower extremity edema. Neurological: CN 2-12 grossly intact. Moves all four extremities. Psych: awake, alert, oriented x3. Follows commands. Answers questions appropriately. Moderate Sedation - Procedure Monitoring Vital Signs: Procedure Monitoring Vital Signs Temperature 97.9 F 07/06/18 18:41 Pulse Rate 73 07/06/18 18:41 Respiratory Rate 18 07/06/18 18:41 Blood Pressure 170/74 07/06/18 18:41 O2 Sat by Pulse Oximetry (%) 97 07/06/18 18:41 Procedures - Bedside Ultrasound Remarks: 07/06/18 21:23 Bedside ultrasound was performed, an attending did not verify findings. 1. Cardiac: no pericardial effusion. good squeeze. no aortic root dilation. subxiphoid view unable to be obtained secondary to body habitus. 2. Lung: negative spine sign bilaterally, no pleural effusion. positive lung sliding bilaterally, suggesting against pneumothorax. A-lines bilaterally. no B- lines bilaterally. 3. IVC: unable to obtain image secondary to body habitus. Heart Score/ECG Review - History History: Moderately suspicious - Electrocardiogram EKG: Non specific repolarization disturbance - Age Age: >/= 65 - Risk Factors Risk Factors Heart Score: Yes Hx Hypercholesterolemia, Yes Hx Hypertension, Yes Hx Diabetes, Yes Hx Obesity Based on the list above the patient has:: >/=3 risk factors or Hx atherosclerotic disease - Troponin Troponin: 1-3x normal limit - Score Heart Score - Total: 7 ED Treatment Course - LABORATORY CBC & Chemistry Diagram: 07/07/18 06:10 07/07/18 06:10 Medical Decision Making - Medical Decision Making 07/06/18 19:37 78 year old female with above PMH presented to ED for chest pain associated with generalized weakness, nausea. Initial Vital Signs Temp Pulse Resp BP Pulse Ox 97.9 F 73 18 170/74 97 07/06/18 18:41 07/06/18 18:41 07/06/18 18:41 07/06/18 18:41 07/06/18 18:41 Afebrile. No tachycardia. No tachypnea. Hypertension. No hypoxia on room air. EKG performed at 1847: rate 74, regular rhythm, normal axis, first degree AV block, nonspecific ST changes. o Labs ordered: CBC, CMP, troponin, T/S, coags c Imaging ordered: CXR g Medications ordered: 243 mg ASA chew 07/06/18 19:47 CBC WBC 9.5 K/mm3 (4.0-10.0) 07/06/18 19:28 RBC 4.48 M/mm3 (3.60-5.2) 07/06/18 19:28 Hgb 13.8 GM/dL (10.7-15.3) 07/06/18 19: Hct 38.2 % (32.4-45.2) 07/06/18 19: MCV 85.3 fl (80-96) 07/06/18: MCH 30.7 pg (25.7-33.7) 07/06/18 19: MCHC 36.0 g/dl (32.0-36.0) 07/06/18 19: RDW 13.9 % (11.6-15.6) 07/06/18 19: Plt Count 247 K/MM3 (134-434) 07/06/18 19: MPV 7.7 fl (7.5-11.1) 07/06/18: Absolute Neuts (auto) 5.9 K/mm3 (1.5-8.0) 07/06/18 19: Neutrophils % 61.8 % (42.8-82.8) 07/06/18 19: Lymphocytes % 29.3 % (8-40) D 07/06/18: Monocytes % 5.8 % (3.8-10.2) 07/06/18 19: Eosinophils % 1.8 % (0-4.5) 07/06/18 19: Basophils % 1.3 % (0-2.0) 07/06/18: Nucleated RBC % 0 % (0-0) 07/06/18 19: No leukocytosis. No anemia. 07/06/18 20:24 CMP Sodium 142 mmol/L (136-145) 07/06/18 19:28 Potassium 3.8 mmol/L (3.5-5.1) 07/06/18 19:28 Chloride 108 mmol/L (98-107) H 07/06/18 19:28 Carbon Dioxide 28 mmol/L (21-32) 07/06/18 19:28 Anion Gap 6 MMOL/L (8-16) L 07/06/18 19:28 BUN 14 mg/dL (7-18) 07/06/18 19:28 Creatinine 1.0 mg/dL (0.55-1.3) 07/06/18 19:28 Creat Clearance w eGFR 53.91 (>60) 07/06/18 19:28 Random Glucose y 213 mg/dL (74-106) H 07/06/18 19:28 Calcium 9.6 mg/dL (8.5-10.1) 07/06/18 19:28 Total Bilirubin 0.3 mg/dL (0.2-1) 07/06/18 19:28 AST 34 U/L (15-37) 07/06/18 19:28 ALT 34 U/L (13-61) 07/06/18 19:28 Alkaline Phosphatase 122 U/L (45-117) H 07/06/18 19:28 Troponin I y 0.06 ng/ml (0.00-0.05) H 07/06/18 19:28 Total Protein 6.9 g/dl (6.4-8.2) 07/06/18 19:28 Albumin 3.4 g/dl (3.4-5.0) 07/06/18 19:28 No electrolyte abnormalities. No ZI. Hyperglycemia. o Mild elevation of troponin. - Will trend 07/06/18 21:29 CXR my interpretation: no infiltrate noted. no large pneumothorax. hazy left costophrenic angle. - Bedside ultrasound did not show pleural effusion or hepatization of lung - Pending official report I spoke with Dr. Schaffer about the case, pt to be admitted to [facility]. 07/07/18 00:48 o Second troponin 0.07. Would expect larger increase for acute PA. 07/07/18 14:18 Follow up: c Official CXR report: no acute pathology. no change from prior. o Third troponin was 0.06. Plan for ECHO and MPI. *DC/Admit/Observation/Transfer Diagnosis at time of Disposition: Elevated troponin level Chest pain Qualifiers: Chest pain type: precordial pain Qualified Code(s): R07.2 - Precordial pain - Discharge Dispostion Condition at time of disposition: Stable Decision to Admit order: Yes - Referrals - Patient Instructions - Post Discharge Activity
[2018-07-06] MEDS ORDERED: ASPIRIN 81 MG CHEWABLE TABLETS PO ONE (19:33)
[2018-07-06 19:40] LABS: BASO % 1.3 % (0-2.0); EOS % 1.8 % (0-4.5); HEMATOCRIT 38.2 % (32.4-45.2); HEMOGLOBIN 13.8 GM/dL (10.7-15.3); LYMPH % 29.3 % (8-40); MCH 30.7 pg (25.7-33.7); MEAN CELL VOLUME 85.3 fl (80-96); MEAN PLT VOLUME 7.7 fl (7.5-11.1); MONO % 5.8 % (3.8-10.2); NEUT % 61.8 % (42.8-82.8); PLATELET COUNT 247 K/MM3 (134-434); RBC 4.48 M/mm3 (3.60-5.2); RDW 13.9 % (11.6-15.6); WHITE BLOOD COUNT 9.5 K/mm3 (4.0-10.0)
[2018-07-06 19:58] LABS: INR 0.99 (0.83-1.09); PROTHROMBIN TIME (PATIENT) 11.7 SEC (9.7-13.0)
--- NOTE | 2018-07-06 20:01 | PDOC ---
Attending Attestation - HPI HPI: 07/06/18 20:36 The patient is a 78 year old female with past medical history significant for CAD, HTN, HLD, Asthma, GERD, DM presents to the emergency department with chest pain. The patient presents with 7 days of intermittent chest pain thats pressure and heaviness in quality. The patient states today she had an episode of the pain that lasted for 3-4 hours, which was longer than prior episodes then went away then presented again at 3:00 pm. The patient reports the pain is worse in the morning and with exertion. The patient reports she had no chest pain lying down. The patient reports associated symptoms of nausea, lightheadedness. The patient reports reports shes compliant with all her medication today. Denies recent travel, prolonged immobilization. The patient reports chronic symptoms of diarrhea and L. leg swelling. Allergies: NKDA Social history: Former smoker, no alcohol or drug use reported. Surgical history: CABG, Stents PCP: Mavis Deras - Physicial Exam PE: 07/06/18 22:24 Vitals: Triage Vital signs reviewed General Appearance: no acute distress, well nourished well developed, Neck: Supple;No Nuchal rigidity Chest Wall: Nontender Cardiac: Regular rate and rhythm, no murmurs, no rubs, no gallops, Lungs: Clear to auscultation bilateral, good air movement bilaterally, Abdomen: Soft, nondistended, normal bowel sounds, nontender to palpation Extremities: Full range of motion to all extremities, no cyanosis, clubbing, or edema Skin: Warm and dry, no rashes or lesions, no petechiae. - Medical Decision Making 07/06/18 20:31 Plan: Labs: CBC, Type and Screen, Troponin, CMP Medication: ASA Radiology: Chest X-ray. EKG: EKG performed at 18:47 demonstrates Vent rate of 74 bpm, AR interval 216 ms , QRS duration 88ms with sinus rhythm with 1st degree AV block. 07/06/18 21:34 Phone calls: Call placed to Dr. Deras for admission. <Iris Anderson - Last Filed: 07/06/18 22:24> - Resident Resident Name: Parvin Darby - ED Attending Attestation I have performed the following: I have examined & evaluated the patient, The case was reviewed & discussed with the resident, I agree w/resident's findings & plan, Exceptions are as noted - Medical Decision Making The patient is a 78 year old female with past medical history significant for CAD, HTN, HLD, Asthma, GERD, DM presents to the emergency department with chest pain. The patient presents with 7 days of intermittent chest pain thats pressure and heaviness in quality. The patient states today she had an episode of the pain that lasted for 3-4 hours, which was longer than prior episodes then went away then presented again at 3:00 pm. The patient reports the pain is worse in the morning and with exertion. The patient reports she had no chest pain lying down. The patient reports associated symptoms of nausea, lightheadedness. The patient reports reports shes compliant with all her medication today. Denies recent travel, prolonged immobilization. The patient reports chronic symptoms of diarrhea and L. leg swelling. Atypical chest discomfort. Nonischemic EKG indeterminant troponin patient currently chest pain-free given heart score of 4 will admit to medicine for further management and serial troponins. <Favio Lyle - Last Filed: 07/06/18 22:42> Heart Score/ECG Review - History History: Slightly suspicious - Electrocardiogram EKG: Normal - Age Age: >/= 65 - Risk Factors Risk Factors Heart Score: Yes Hx Hypercholesterolemia, Yes Hx Hypertension, Yes Hx Diabetes Based on the list above the patient has:: >/=3 risk factors or Hx atherosclerotic disease - Troponin Troponin: </= normal limit - Score Heart Score - Total: 4 <Favio Lyle - Last Filed: 07/06/18 22:42>
[2018-07-06 20:19] LABS: ALBUMIN 3.4 g/dl (3.4-5.0); ANION GAP 6 MMOL/L (8-16); BILIRUBIN,TOTAL 0.3 mg/dL (0.2-1); BLOOD UREA NITROGEN 14 mg/dL (7-18); CALCIUM 9.6 mg/dL (8.5-10.1); CHLORIDE 108 mmol/L (98-107); CO2 28 mmol/L (21-32); GLUCOSE,RANDOM 213 mg/dL (74-106); SGPT/ALT 34 U/L (13-61); SODIUM 142 mmol/L (136-145); TOT PROT 6.9 g/dl (6.4-8.2)
[2018-07-06 20:20] LABS: ALK PHOS 122 U/L (45-117); POTASSIUM 3.8 mmol/L (3.5-5.1); SGOT/AST 34 U/L (15-37)
[2018-07-06] MEDS ORDERED: ASPIRIN 81 MG CHEWABLE TABLETS ONE (21:16)
[2018-07-07] MEDS ORDERED: PATIENT'S OWN MEDICATION (NON-FORMULARY) (Acarbose 50 MG) PO SCH (06:00)
[2018-07-07 06:45] LABS: EOS % 3.2 % (0-4.5); HEMATOCRIT 37.1 % (32.4-45.2); HEMOGLOBIN 13.2 GM/dL (10.7-15.3); LYMPH % 34.1 % (8-40); MCH 30.3 pg (25.7-33.7); MCHC 35.6 g/dl (32.0-36.0); MEAN CELL VOLUME 85.1 fl (80-96); MEAN PLT VOLUME 7.4 fl (7.5-11.1); MONO % 5.7 % (3.8-10.2); PLATELET COUNT 222 K/MM3 (134-434); RBC 4.36 M/mm3 (3.60-5.2); WHITE BLOOD COUNT 8.4 K/mm3 (4.0-10.0)
[2018-07-07 07:17] LABS: ALBUMIN 3.2 g/dl (3.4-5.0); ALK PHOS 111 U/L (45-117); ANION GAP 5 MMOL/L (8-16); BILIRUBIN,TOTAL 0.4 mg/dL (0.2-1); BLOOD UREA NITROGEN 10 mg/dL (7-18); CALCIUM 9.2 mg/dL (8.5-10.1); CHLORIDE 110 mmol/L (98-107); CO2 28 mmol/L (21-32); CREATININE 0.9 mg/dL (0.55-1.3); GLUCOSE,RANDOM 180 mg/dL (74-106); POTASSIUM 4.1 mmol/L (3.5-5.1); SGOT/AST 25 U/L (15-37); SGPT/ALT 30 U/L (13-61); SODIUM 143 mmol/L (136-145); TOT PROT 6.3 g/dl (6.4-8.2)
[2018-07-07] MEDS ORDERED: glipiZIDE 5 MG TABLET (FP) ONE (08:28)
[2018-07-07] MEDS: glipiZIDE 5 MG TABLET (FP) PO SCH ×2 (09:15→18:22)
[2018-07-07] MEDS: INSULIN SLIDING SCALE (NOVOLOG) 1 VIAL SQ SCH ×3 (09:16→18:28)
[2018-07-07] MEDS: VALSARTAN 160 MG TABLET (UD) PO SCH (10:31)
[2018-07-07] MEDS: ASPIRIN 81 MG CHEWABLE TABLETS PO SCH (10:31)
[2018-07-07] MEDS: ISOSORBIDE MONONITRATE 60 MG TAB.SR.24H (FP) PO SCH (10:31)
[2018-07-07] MEDS: HEPARIN NA (PORCINE) 5,000 UNITS/ML 1ML VIAL SQ SCH (10:31)
--- NOTE | 2018-07-07 12:52 | EKG ---
Test Reason : Blood Pressure : / mmHG Vent. Rate : 074 BPM Atrial Rate : 074 BPM P-R Int : 216 ms QRS Dur : 088 ms QT Int : 402 ms P-R-T Axes : 060 027 055 degrees QTc Int : 446 ms SINUS RHYTHM WITH 1ST DEGREE A-V BLOCK WHEN COMPARED WITH ECG OF 10-NOV-2017 04:18, NO SIGNIFICANT CHANGE WAS FOUND Confirmed by ANGELA CALLOWAY MD ([id number]) on 07/07/2018 12:52:17 PM Referred By: Confirmed By:ANGELA CALLOWAY MD
--- NOTE | 2018-07-07 13:07 | CON.CARD ---
Consult Consult Specialty:: Cardiology for Dr. Naylor Referred by:: Mavis Schaffer MD Reason for Consultation:: Chest pain - History of Present Illness Chief Complaint: Chest pain History of Present Illness: The patient is a 78 year old female with past medical history significant for CAD s/p CABG, PCI, HTN, HLD, Asthma, GERD, DM presents to the emergency department with chest pain over last 3 weeks she characterizes as pressure and heaviness in quality associated with palpitations. The patient states today she had an episode of the pain that lasted for 3-4 hours, which was longer than prior episodes then went away then presented again at 3:00 pm. The patient reports the pain is worse in the morning and with exertion. She denies associated sxs of dyspnea, near or true syncope, palpitations, orthopnea, PND or LE edema. Allergies: NKDA Social history: Former smoker, no alcohol or drug use reported. 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 Machine Tender: Gila Hernandes MD - History Source History Provided By: Patient Limitations to Obtaining History: No Limitations - Past Medical History Cardio/Vascular: Yes: CAD, HTN, Hyperlipdemia Pulmonary: Yes: Asthma Gastrointestinal: Yes: Gastritis, GERD ENT: Yes: Other (vertigo) Endocrine: Yes: Diabetes Mellitus - Past Surgical History Past Surgical History: Yes: CABG, Stent - Alcohol/Substance Use Hx Alcohol Use: No - Smoking History Smoking history: Never smoked Have you smoked in the past 12 months: No Aproximately how many cigarettes per day: 0 If you are a former smoker, when did you quit?: Over 30 years ago - Social History ADL: Independent History of Recent Travel: No Home Medications - Allergies Allergies/Adverse Reactions: Allergies Allergy/AdvReac Type Severity Reaction Status Date / Time No Known Allergies Allergy Verified 07/06/18 18:44 - Home Medications Home Medications: Ambulatory Orders Valsartan [Diovan] 320 mg PO DAILY 12/27/13 Acarbose [Precose -] 50 mg PO TID 05/21/14 Glipizide [Glucotrol -] 10 mg PO BIDAC #7 tablet 05/24/14 Insulin Sliding Scale [Novolog Vial Sliding Scale -] 0 units SQ ACHS 7 Days pen 05/24/14 Isosorbide Mononitrate [Imdur -] 120 mg PO DAILY 12/29/15 Metoprolol Succinate [Toprol XL -] 50 mg PO DAILY 03/01/16 Aspirin [ASA -] 81 mg PO BID 05/06/17 Insulin Glargine,Hum.rec.anlog [Lantus (10mL VIAL) -] 50 units SQ HS 05/06/17 Insulin Glargine,Hum.rec.anlog [Lantus (10mL VIAL) -] 56 units SQ HS 05/06/17 Aspirin Coated [Ecotrin -] 325 mg PO DAILY #30 tablet. 09/28/17 Review of Systems - Review of Systems Cardiovascular: reports: Chest Pain Vital Signs: Vital Signs Temperature 98.9 F 07/07/18 09:14 Pulse Rate 65 07/07/18 09:14 Respiratory Rate 17 07/07/18 09:14 Blood Pressure 158/88 07/07/18 09:14 O2 Sat by Pulse Oximetry (%) 95 07/07/18 09:14 Constitutional: Yes: No Distress, Calm Neck: Yes: Supple Respiratory: Yes: Regular, CTA Bilaterally Gastrointestinal: Yes: Normal Bowel Sounds, Soft Cardiovascular: Yes: Regular Rate and Rhythm JVD: No Carotid Bruit: No Heart Sounds: Yes: S1, S2 Murmur: Yes: Systolic Murmur, Grade 1 Edema: No - Other Data Labs, Other Data: CBC, BMP 07/07/18 06:10 07/07/18 06:10 INR, PTT INR 0.99 (0.83-1.09) 07/06/18 19:28 Troponin, BNP 07/06/18 07/06/18 07/07/18 19:28 22:00 05:40 Troponin I 0.06 H 0.07 H 0.06 H Troponin, BNP 07/06/18 07/06/18 07/07/18 19:28 22:00 05:40 Troponin I 0.06 H 0.07 H 0.06 H NSR @ 74 1st deg AVB Prior Cardiac Procedures: CABG, PTCA with Stent Ejection Fraction %: LVEF > or = 40 % Imaging - Results Chest X-ray: Report Reviewed (NAD) Problem List - Problems (1) S/P coronary artery stent placement Code(s): Z95.5 - PRESENCE OF CORONARY ANGIOPLASTY IMPLANT AND GRAFT (2) Subendocardial ischemia Code(s): I24.8 - OTHER FORMS OF ACUTE ISCHEMIC HEART DISEASE (3) Chest pain Code(s): R07.9 - CHEST PAIN, UNSPECIFIED Qualifiers: Chest pain type: precordial pain Qualified Code(s): R07.2 - Precordial pain (4) CAD (coronary artery disease) Code(s): I25.10 - ATHSCL HEART DISEASE OF [place] CORONARY ARTERY W/O ANG PCTRS Qualifiers: Coronary Disease-Associated Artery/Lesion type: [place] artery [place] vs. transplanted heart: [place] heart Associated angina: with stable angina Qualified Code(s): I25.118 - Atherosclerotic heart disease of [place] coronary artery with other forms of angina pectoris (5) Diabetes Code(s): E11.9 - TYPE 2 DIABETES MELLITUS WITHOUT COMPLICATIONS Qualifiers: Diabetes mellitus type: type 2 (6) HLD (hyperlipidemia) Code(s): E78.5 - HYPERLIPIDEMIA, UNSPECIFIED Qualifiers: Hyperlipidemia type: pure hypercholesterolemia Qualified Code(s): E78.00 - Pure hypercholesterolemia, unspecified; E78.0 - Pure hypercholesterolemia (7) HTN (hypertension) Code(s): I10 - ESSENTIAL (PRIMARY) HYPERTENSION Qualifiers: Hypertension type: essential hypertension Qualified Code(s): I10 - Essential (primary) hypertension (8) S/P CABG (coronary artery bypass graft) Code(s): Z95.1 - PRESENCE OF AORTOCORONARY BYPASS GRAFT Assessment/Plan 09/28/2017 Echo: Normal LV size and fxn, LVEF 50-55%, mild TR, HI 1. Chest pain with underlying CAD s/p CABG, PCI, angina pectoris 2. Hypertension heart disease, BP not at goal with subendocardial ischemia 3. Hyperlipidemia 4. Type 2 DM 5. Diastolic dysfunction P:1. Trend trops to document peak, check TSH, HA1c, fasting lipid profile, f/u echo results already ordered 2. Continue ASA 81 qd, Toprol XL 50 qd, Imdur 120 qd, Diovan 320 qd, add Norvasc 5 qd as hemodynamics tolerate, statin after review of lipid panel 3. Review outpatient records, would benefit from Lexiscan MPI to assess severity of CAD once trops downtrend if none performed recently 4. Dr. Naylor will assume cardiac care in AM, thank you for consultative opportunity .
[2018-07-07] MEDS: amLODIPine BESYLATE 5 MG TABLET (FP) PO SCH (15:53)
[2018-07-07] MEDS ORDERED: amLODIPine BESYLATE 5 MG TABLET (FP) ONE (15:53)
--- NOTE | 2018-07-07 16:35 | HP ---
Admitting History and Physical - Admission History of Present Illness: Pt is a 78 y/o female with PMH significant for CAD, [place] (2006), HTN,HLD and DM. Pt presented to ED for chest pain x7 days. Although she states that at least for the past 1 month she has had intermittent chest pain/epigastric pain that she attributed to refulx. Pt stated her pain is located to the left chest and substernally, with no aggravating or alleviating factors and no radiation. Pt stated this episode of chest pain began at 0800 and lasted until [id number]. Pt stated her pain then returned at [id number] and since the pain lasted longer today than any other day, she decided to come to the ED. Pt stated her pain is associated with nausea, bilateral arm numbness (chronic) and lightheadedness. - Past Medical History Cardiovascular: Yes: CAD, HTN, Hyperlipdemia Pulmonary: Yes: Asthma Gastrointestinal: Yes: Gastritis, GERD ENT: Yes: Other (vertigo) Endocrine: Yes: Diabetes Mellitus - Past Surgical History Past Surgical History: Yes: CABG, Stent - Smoking History Smoking history: Never smoked Have you smoked in the past 12 months: No Aproximately how many cigarettes per day: 0 If you are a former smoker, when did you quit?: Over 30 years ago - Alcohol/Substance Use Hx Alcohol Use: No - Social History ADL: Independent History of Recent Travel: No Home Medications - Allergies Allergies/Adverse Reactions: Allergies Allergy/AdvReac Type Severity Reaction Status Date / Time No Known Allergies Allergy Verified 07/06/18 18:44 - Home Medications Home Medications: Ambulatory Orders Valsartan [Diovan] 320 mg PO DAILY 12/27/13 Acarbose [Precose -] 50 mg PO TID 05/21/14 Glipizide [Glucotrol -] 10 mg PO BIDAC #7 tablet 05/24/14 Insulin Sliding Scale [Novolog Vial Sliding Scale -] 0 units SQ ACHS 7 Days pen 05/24/14 Isosorbide Mononitrate [Imdur -] 120 mg PO DAILY 05/18/15 Metoprolol Succinate [Toprol XL -] 50 mg PO DAILY 03/01/16 Aspirin [ASA -] 81 mg PO BID 05/06/17 Insulin Glargine,Hum.rec.anlog [Lantus (10mL VIAL) -] 50 units SQ HS 05/06/17 Insulin Glargine,Hum.rec.anlog [Lantus (10mL VIAL) -] 56 units SQ 05/06/17 Aspirin Coated [Ecotrin -] 325 mg PO DAILY #30 tablet. 09/28/17 Family Disease History - Family Disease History Family History: Unremarkable Review of Systems - Review of Systems Constitutional: reports: No Symptoms Eyes: reports: No Symptoms HENT: reports: No Symptoms Neck: reports: No Symptoms Cardiovascular: reports: Chest Pain Respiratory: reports: No Symptoms Gastrointestinal: reports: Nausea Genitourinary: reports: No Symptoms Physical Examination Vital Signs: Vital Signs Temperature 98.9 F 07/07/18 09:14 Pulse Rate 65 07/07/18 09:14 Respiratory Rate 17 07/07/18 09:14 Blood Pressure 158/88 07/07/18 09:14 O2 Sat by Pulse Oximetry (%) 95 07/07/18 09:14 Constitutional: Yes: Well Nourished HENT: Yes: WNL Neck: Yes: WNL, Supple Cardiovascular: Yes: WNL, Regular Rate and Rhythm Respiratory: Yes: WNL, Regular, CTA Bilaterally Gastrointestinal: Yes: WNL, Normal Bowel Sounds, Soft Musculoskeletal: Yes: WNL Extremities: Yes: WNL Edema: No Neurological: Yes: WNL, Alert, Oriented ...Motor Strength: WNL Labs: CBC, BMP 07/07/18 06:10 07/07/18 06:10 Problem List - Problems (1) Chest pain Assessment/Plan: Elevated troponin Admit to tele Serial cpk/troponin Cardio consult Check echo Code(s): R07.9 - CHEST PAIN, UNSPECIFIED Qualifiers: Chest pain type: precordial pain Qualified Code(s): R07.2 - Precordial pain (2) Diabetes Assessment/Plan: Cont sliding scale w/ coverage Code(s): E11.9 - TYPE 2 DIABETES MELLITUS WITHOUT COMPLICATIONS Qualifiers: Diabetes mellitus type: type 2 (3) HTN (hypertension) Assessment/Plan: BP stable Cont antihypertensives Code(s): I10 - ESSENTIAL (PRIMARY) HYPERTENSION Qualifiers: Hypertension type: essential hypertension Qualified Code(s): I10 - Essential (primary) hypertension (4) HLD (hyperlipidemia) Code(s): E78.5 - HYPERLIPIDEMIA, UNSPECIFIED Qualifiers: Hyperlipidemia type: pure hypercholesterolemia Qualified Code(s): E78.00 - Pure hypercholesterolemia, unspecified; E78.0 - Pure hypercholesterolemia (5) CAD (coronary artery disease) Code(s): I25.10 - ATHSCL HEART DISEASE OF [place] CORONARY ARTERY W/O ANG PCTRS Qualifiers: Coronary Disease-Associated Artery/Lesion type: [place] artery [place] vs. transplanted heart: [place] heart Associated angina: with stable angina Qualified Code(s): I25.118 - Atherosclerotic heart disease of [place] coronary artery with other forms of angina pectoris
[2018-07-07] MEDS ORDERED: ASPIRIN 81 MG CHEWABLE TABLETS ONE (23:31)
[2018-07-07] MEDS ORDERED: HEPARIN NA (PORCINE) 5,000 UNITS/ML 1ML VIAL ONE (23:31)
[2018-07-07] MEDS ORDERED: INSULIN (NOVOLOG) ASPART 100 UNITS/ML 10ML VIAL ONE (23:47)
[2018-07-08] MEDS ORDERED: INSULIN (LEVEMIR) 100 UNITS/ML UNITS SQ ONE (02:14)
[2018-07-08] MEDS: INSULIN (LEVEMIR) 100 UNITS/ML UNITS SQ SCH ×2 (02:17→21:18)
[2018-07-08] MEDS: INSULIN SLIDING SCALE (NOVOLOG) 1 VIAL SQ SCH ×6 (02:18→21:18)
--- NOTE | 2018-07-08 08:05 | PN ---
Progress Note, Physician Chief Complaint: seen and examined in ER No chest pain Enzymes flat - Current Medication List Current Medications: Active Medications Amlodipine Besylate (Norvasc -) 5 mg PO DAILY [facility] Last Admin: 07/07/18 15:53 Dose: 5 mg Aspirin (Asa -) 81 mg PO BID [facility] Last Admin: 07/08/18 00:00 Dose: 81 mg Glipizide (Glucotrol -) 10 mg PO BIDAC [facility] Last Admin: 07/07/18 18:22 Dose: 10 mg Heparin Sodium (Porcine) (Heparin -) 5,000 unit SQ BID [facility] Last Admin: 07/08/18 00:00 Dose: 5,000 unit Insulin Aspart (Novolog Vial Sliding Scale -) 1 vial SQ [facility]; Protocol Last Admin: 07/08/18 07:29 Dose: Not Given Insulin Detemir (Levemir Vial) 50 units SQ HS [facility] Last Admin: 07/08/18 02:17 Dose: 50 units Isosorbide Mononitrate (Imdur -) 120 mg PO DAILY [facility] Last Admin: 07/07/18 10:31 Dose: 120 mg Metoprolol Succinate (Toprol Xl -) 50 mg PO DAILY [facility] Last Admin: 07/07/18 10:31 Dose: 50 mg Non-Formulary Medication (Acarbose) 50 mg PO TID [facility] Valsartan (Diovan -) 320 mg PO DAILY [facility] Last Admin: 07/07/18 10:31 Dose: 320 mg - Objective Vital Signs: Vital Signs Temperature 98.9 F 07/07/18 09:14 Pulse Rate 65 07/07/18 09:14 Respiratory Rate 17 07/07/18 09:14 Blood Pressure 158/88 07/07/18 09:14 O2 Sat by Pulse Oximetry (%) 95 07/07/18 09:14 Constitutional: Yes: No Distress, Calm Neck: Yes: Trachea Midline Cardiovascular: Yes: Regular Rate and Rhythm Respiratory: Yes: CTA Bilaterally (no rales) Gastrointestinal: Yes: Soft (NT) Edema: No Peripheral Pulses WNL: Yes Neurological: Yes: Alert, Oriented ...Motor Strength: WNL Labs: CBC, BMP 07/07/18 06:10 07/07/18 06:10 INR, PTT INR 0.99 (0.83-1.09) 07/06/18 19:28 Laboratory Tests 07/06/18 07/06/18 07/07/18 19:28 22:00 05:40 WBC Hgb Plt Count Creatinine Troponin I 0.06 H 0.07 H 0.06 H 07/07/18 07/07/18 07/08/18 06:10 06:10 05:30 WBC 8.4 Hgb 13.2 Plt Count 222 Creatinine 0.9 Troponin I 0.08 H - ....Imaging Chest X-ray: Report Reviewed EKG: Image Reviewed Assessment/Plan Assessment/Plan 09/28/2017 Echo: Normal LV size and fxn, LVEF 50-55%, mild TR, IN 1. Chest pain with underlying CAD s/p CABG, PCI, angina pectoris 2. Hypertension heart disease, BP not at goal with subendocardial ischemia 3. Hyperlipidemia 4. Type 2 DM 5. Diastolic dysfunction REC: 1. Echo for EF assessment 2. For Lexiscan MPI today 3. Amlodipine added yesterday, observe BP trend for goal of 140/90.
[2018-07-08] MEDS: VALSARTAN 160 MG TABLET (UD) PO SCH ×2 (08:39→15:19)
[2018-07-08] MEDS: glipiZIDE 5 MG TABLET (FP) PO SCH ×2 (08:57→15:55)
[2018-07-08] MEDS ORDERED: REGADENOSON 0.4 MG/5 ML PRE-FILLED SYRINGE IVPUSH ONE ×2 (09:53→11:45)
--- NOTE | 2018-07-08 13:41 | ECHO ---
Name: WILL FLORENTINO Exam:Adult Echocardiogram Study Date: 07/08/2018 09:00 AM Age: 78 yrs Reason For Study: Chest pain Height: 62 in Weight: 180 lb BSA: 1.8 m2 MMode/2D Measurements & Calculations IVSd: 0.72 cm Ao root diam: 2.6 cm LVIDd: 4.4 cm LA dimension: 3.0 cm LVIDs: 2.7 cm LVPWd: 0.73 cm EDV(Teich): 85.6 ml TAPSE: 2.2 cm ESV(Teich): 27.2 ml Doppler Measurements & Calculations MV E max cameron: 42.4 cm/sec TR max cameron: 205.5 cm/sec MV A max cameron: 59.2 cm/sec TR max P.2 mmHg MV E/A: 0.72 MV dec time: 0.24 sec PI end-d cameron: 89.6 cm/sec Med Peak E' Cameron: 4.8 cm/sec Med E/e': 8.8 Lat Peak E' Cameron: 9.0 cm/sec Lat E/e': 4.7 Procedure The study was technically adequate with some images being suboptimal in quality. Left Ventricle The left ventricular size, thickness and function are normal. Ejection Fraction = 60-65%. Grade I grace stolic dysfunction, (abnormal relaxation pattern). Septal motion is consistent with post-operative state. Right Ventricle The right ventricle is normal in size and function. Atria Normal left and right atrial size and function. Mitral Valve The mitral valve is grossly normal. There is trace mitral regurgitation. Tricuspid Valve The tricuspid valve is not well visualized. There is mild to moderate tricuspid regurgitation. Right ventricular systolic pressure is 21 mmhg. Aortic Valve The aortic valve opens well. No aortic regurgitation is present. Pulmonic Valve The pulmonic valve is not well visualized. Trace pulmonic valvular regurgitation. Great Vessels The aortic root is normal size. Pericardium/Pleura There is no pericardial effusion. Interpretation Summary There is no comparison study available. The left ventricular size, thickness and function are normal The right ventricle is normal in size and function. There is trace mitral regurgitation. Ejection Fraction = 60-65%. There is mild to moderate tricuspid regurgitation. Septal motion is consistent with post-operative state. Grade I diastolic dysfunction, (abnormal relaxation pattern). Juan C Oquendo MD 07/08/2018 01:41 PM
--- NOTE | 2018-07-08 14:24 | PN ---
Progress Note, Physician History of Present Illness: feeling better seems like muscular chest pain - Current Medication List Current Medications: Active Medications Amlodipine Besylate (Norvasc -) 5 mg PO DAILY [facility] Last Admin: 07/07/18 15:53 Dose: 5 mg Aspirin (Asa -) 81 mg PO BID [facility] Last Admin: 07/08/18 00:00 Dose: 81 mg Glipizide (Glucotrol -) 10 mg PO BIDAC [facility] Last Admin: 07/07/18 18:22 Dose: 10 mg Heparin Sodium (Porcine) (Heparin -) 5,000 unit SQ BID [facility] Last Admin: 07/08/18 00:00 Dose: 5,000 unit Insulin Aspart (Novolog Vial Sliding Scale -) 1 vial SQ [facility]; Protocol Last Admin: 07/08/18 07:29 Dose: Not Given Insulin Detemir (Levemir Vial) 50 units SQ HS [facility] Last Admin: 07/08/18 02:17 Dose: 50 units Isosorbide Mononitrate (Imdur -) 120 mg PO DAILY [facility] Last Admin: 07/07/18 10:31 Dose: 120 mg Metoprolol Succinate (Toprol Xl -) 50 mg PO DAILY [facility] Last Admin: 07/07/18 10:31 Dose: 50 mg Non-Formulary Medication (Acarbose) 50 mg PO TID [facility] Valsartan (Diovan -) 320 mg PO DAILY [facility] Last Admin: 07/08/18 08:39 Dose: 320 mg - Objective Vital Signs: Vital Signs Temperature 98.1 F 07/08/18 08:39 Pulse Rate 59 L 07/08/18 08:39 Respiratory Rate 16 07/08/18 08:39 Blood Pressure 150/91 07/08/18 08:39 O2 Sat by Pulse Oximetry (%) 95 07/07/18 09:14 Constitutional: Yes: No Distress HENT: Yes: Atraumatic Neck: Yes: Supple Cardiovascular: Yes: Regular Rate and Rhythm Respiratory: Yes: CTA Bilaterally Gastrointestinal: Yes: Normal Bowel Sounds Extremities: Yes: WNL Edema: No Peripheral Pulses WNL: Yes Neurological: Yes: Alert, Oriented Labs: CBC, BMP 07/07/18 06:10 07/07/18 06:10 INR, PTT INR 0.99 (0.83-1.09) 07/06/18 19:28 Problem List - Problems (1) Chest pain Assessment/Plan: much better doing better had stress test and echo report reviewed dc in am if cleared by cardiology Code(s): R07.9 - CHEST PAIN, UNSPECIFIED Qualifiers: Chest pain type: precordial pain Qualified Code(s): R07.2 - Precordial pain (2) S/P coronary artery stent placement Code(s): Z95.5 - PRESENCE OF CORONARY ANGIOPLASTY IMPLANT AND GRAFT (3) Diabetes Assessment/Plan: monitor on meds Code(s): E11.9 - TYPE 2 DIABETES MELLITUS WITHOUT COMPLICATIONS Qualifiers: Diabetes mellitus type: type 2 (4) HLD (hyperlipidemia) Assessment/Plan: on meds Code(s): E78.5 - HYPERLIPIDEMIA, UNSPECIFIED Qualifiers: Hyperlipidemia type: pure hypercholesterolemia Qualified Code(s): E78.00 - Pure hypercholesterolemia, unspecified; E78.0 - Pure hypercholesterolemia (5) HTN (hypertension) Assessment/Plan: on meds monitor bp Code(s): I10 - ESSENTIAL (PRIMARY) HYPERTENSION Qualifiers: Hypertension type: essential hypertension Qualified Code(s): I10 - Essential (primary) hypertension
[2018-07-08] MEDS: ISOSORBIDE MONONITRATE 60 MG TAB.SR.24H (FP) PO SCH (15:55)
[2018-07-08] MEDS: ASPIRIN 81 MG CHEWABLE TABLETS PO SCH ×3 (15:55→21:18)
[2018-07-08] MEDS: HEPARIN NA (PORCINE) 5,000 UNITS/ML 1ML VIAL SQ SCH ×3 (15:55→21:18)
[2018-07-08] MEDS: amLODIPine BESYLATE 5 MG TABLET (FP) PO SCH (15:56)
[2018-07-08] MEDS ORDERED: ASPIRIN 81 MG CHEWABLE TABLETS ONE (21:04)
[2018-07-08] MEDS ORDERED: HEPARIN NA (PORCINE) 5,000 UNITS/ML 1ML VIAL ONE (21:04)
[2018-07-08] MEDS ORDERED: INSULIN (NOVOLOG) ASPART 100 UNITS/ML 10ML VIAL ONE (21:06)
[2018-07-09 06:32] VITALS: TEMP 97.8
[2018-07-09] MEDS: INSULIN SLIDING SCALE (NOVOLOG) 1 VIAL SQ SCH (06:40)
[2018-07-09] MEDS ORDERED: glipiZIDE 5 MG TABLET (FP) ONE (06:43)
[2018-07-09] MEDS: glipiZIDE 5 MG TABLET (FP) PO SCH (06:53)
--- NOTE | 2018-07-09 08:27 | PN ---
Progress Note, Physician Chief Complaint: Stress test soft tissue attenuation, no ischemia, EF 67% Echo was basically unremarkable She denies chest pain and has been ambulating - Current Medication List Current Medications: Active Medications Amlodipine Besylate (Norvasc -) 5 mg PO DAILY [facility] Last Admin: 07/08/18 15:56 Dose: 5 mg Aspirin (Asa -) 81 mg PO BID [facility] Last Admin: 07/08/18 21:18 Dose: 81 mg Glipizide (Glucotrol -) 10 mg PO BIDAC [facility] Last Admin: 07/09/18 06:53 Dose: 10 mg Heparin Sodium (Porcine) (Heparin -) 5,000 unit SQ BID [facility] Last Admin: 07/08/18 21:18 Dose: 5,000 unit Insulin Aspart (Novolog Vial Sliding Scale -) 1 vial SQ [facility]; Protocol Last Admin: 07/09/18 06:40 Dose: Not Given Insulin Detemir (Levemir Vial) 50 units SQ HS [facility] Last Admin: 07/08/18 21:18 Dose: 50 units Isosorbide Mononitrate (Imdur -) 120 mg PO DAILY [facility] Last Admin: 07/08/18 15:55 Dose: 120 mg Metoprolol Succinate (Toprol Xl -) 50 mg PO DAILY [facility] Last Admin: 07/08/18 15:56 Dose: 50 mg Non-Formulary Medication (Acarbose) 50 mg PO TID [facility] Valsartan (Diovan -) 320 mg PO DAILY [facility] Last Admin: 07/08/18 15:19 Dose: Not Given - Objective Vital Signs: Vital Signs Temperature 97.8 F 07/09/18 06:31 Pulse Rate 57 L 07/09/18 06:31 Respiratory Rate 18 07/09/18 06:31 Blood Pressure 124/63 07/09/18 06:31 O2 Sat by Pulse Oximetry (%) 98 07/09/18 06:31 Constitutional: Yes: No Distress Cardiovascular: Yes: Regular Rate and Rhythm Respiratory: Yes: CTA Bilaterally (no rales, wheezing) Gastrointestinal: Yes: Soft (nontender) Edema: No Peripheral Pulses WNL: Yes Neurological: Yes: Alert, Oriented Labs: CBC, BMP 07/07/18 06:10 07/07/18 06:10 INR, PTT INR 0.99 (0.83-1.09) 02/16/19 19:28 Laboratory Tests 07/06/18 07/06/18 07/07/18 19:28 22:00 05:40 Troponin I 0.06 H 0.07 H 0.06 H 07/08/18 05:30 Troponin I 0.08 H Assessment/Plan Assessment/Plan 09/28/2017 Echo: Normal LV size and fxn, LVEF 50-55%, mild TR, MN 1. Chest pain with underlying CAD s/p CABG, PCI, angina pectoris 2. Hypertension heart disease, BP not at goal with subendocardial ischemia 3. Hyperlipidemia 4. Type 2 DM 5. Diastolic dysfunction REC: 1. Echo for EF assessment revealed overall normal LVEF 2. Lexiscan MPI without ischemia. 3. Amlodipine added this admission, can be further titrated as outpt. No further inpatient w/u planned at this time. Ok for discharge from CV standpoint with close outpt f/u w/ her [facility] Dr. Hernandes ([phone]). Will sign off Please call again as needed Thank you
[2018-07-09] MEDS ORDERED: ASPIRIN 81 MG CHEWABLE TABLETS ONE (09:21)
[2018-07-09] MEDS ORDERED: VALSARTAN 80 MG TABLET (UD) ONE (09:22)
[2018-07-09] MEDS ORDERED: amLODIPine BESYLATE 5 MG TABLET (FP) ONE (09:22)
[2018-07-09] MEDS ORDERED: ISOSORBIDE MONONITRATE 60 MG TAB.SR.24H (FP) PO ONE (09:22)
[2018-07-09] MEDS ORDERED: HEPARIN NA (PORCINE) 5,000 UNITS/ML 1ML VIAL ONE (09:23)
[2018-07-09] MEDS: ISOSORBIDE MONONITRATE 60 MG TAB.SR.24H (FP) PO SCH (09:26)
[2018-07-09] MEDS: VALSARTAN 160 MG TABLET (UD) PO SCH (09:27)
[2018-07-09] MEDS: amLODIPine BESYLATE 5 MG TABLET (FP) PO SCH (09:28)
[2018-07-09] MEDS: ASPIRIN 81 MG CHEWABLE TABLETS PO SCH (09:29)
[2018-07-09] MEDS: HEPARIN NA (PORCINE) 5,000 UNITS/ML 1ML VIAL SQ SCH (09:29)
[2018-07-09 09:34] VITALS: BP 134/62; PULSE 62
--- NOTE | 2018-07-09 18:15 | DS ---
Physical Examination Vital Signs: Vital Signs Temperature 97.8 F 07/09/18 06:31 Pulse Rate 62 07/09/18 09:33 Respiratory Rate 18 07/09/18 09:33 Blood Pressure 134/62 07/09/18 09:33 O2 Sat by Pulse Oximetry (%) 98 07/09/18 06:31 Constitutional: Yes: No Distress HENT: Yes: Atraumatic Neck: Yes: Supple Cardiovascular: Yes: Regular Rate and Rhythm Respiratory: Yes: CTA Bilaterally Gastrointestinal: Yes: Normal Bowel Sounds Extremities: Yes: WNL Neurological: Yes: Alert, Oriented Labs: CBC, BMP 07/07/18 06:10 07/07/18 06:10 Discharge Summary Reason For Visit: CHEST PAIN,ELEVATED TROPONIN LEVEL Condition: Stable - Instructions Disposition: HOME - Home Medications Comprehensive Discharge Medication List: Ambulatory Orders Valsartan [Diovan] 320 mg PO DAILY 12/27/13 Acarbose [Precose -] 50 mg PO TID 05/21/14 Glipizide [Glucotrol -] 10 mg PO BIDAC #7 tablet 05/24/14 Insulin Sliding Scale [Novolog Vial Sliding Scale -] 0 units SQ ACHS 7 Days pen 05/24/14 Isosorbide Mononitrate [Imdur -] 120 mg PO DAILY 05/18/15 Metoprolol Succinate [Toprol XL -] 50 mg PO DAILY 03/01/16 Aspirin [ASA -] 81 mg PO BID 05/06/17 Insulin Glargine,Hum.rec.anlog [Lantus (10mL VIAL) -] 50 units SQ HS 05/06/17 Insulin Glargine,Hum.rec.anlog [Lantus (10mL VIAL) -] 56 units SQ HS 05/06/17 Aspirin Coated [Ecotrin -] 325 mg PO DAILY #30 tablet. 09/28/17 [facility]
== END 2018-07-09 11:14 | disposition home or self-care (01) | DRG 305 ==
LOC: JER 18:36 → JERBED 20:38
PROVIDERS: ADMIT Internal Medicine; ATTEND Internal Medicine
DX: I11.9 Hypertensive heart disease without heart failure (principal); I24.8 Other forms of acute ischemic heart disease; I25.10 Atherosclerotic heart disease of native coronary artery without angina pectoris; Z95.1 Presence of aortocoronary bypass graft; E78.5 Hyperlipidemia, unspecified; E11.9 Type 2 diabetes mellitus without complications; Z79.4 Long term (current) use of insulin; K21.9 Gastro-esophageal reflux disease without esophagitis; Z98.61 Coronary angioplasty status
CPT/HCPCS: 36415; 71045-TC-FY; 78452-TC; 80053; 80061; 82550; 82962; 83036; 83721; 84443; 84484; 85025; 85610; 85730; 86850; 86900; 86901; 93005; 93010; 93017; 93306-TC; 99285-25; A9502; J1644; J2785

== ENCOUNTER 2019-01-25 15:55 | Inpatient (IN) | payer OTHER ==
--- NOTE | 2019-01-25 16:22 | PDOC ---
History of Present Illness - General Chief Complaint: Chest Pain Stated Complaint: CHEST PAIN Past History - Past Medical History Allergies/Adverse Reactions: Allergies Allergy/AdvReac Type Severity Reaction Status Date / Time No Known Allergies Allergy Verified 01/25/19 16:17 Home Medications: Ambulatory Orders Valsartan [Diovan] 320 mg PO DAILY 12/27/13 Acarbose [Precose -] 50 mg PO TID 05/21/14 Glipizide [Glucotrol -] 10 mg PO BIDAC #7 tablet 05/24/14 Insulin Sliding Scale [Novolog Vial Sliding Scale -] 0 units SQ ACHS 7 Days pen 05/24/14 Isosorbide Mononitrate [Imdur -] 120 mg PO DAILY 05/18/15 Metoprolol Succinate [Toprol XL -] 50 mg PO DAILY 03/01/16 Aspirin [ASA -] 81 mg PO BID 05/06/17 Insulin Glargine,Hum.rec.anlog [Lantus (10mL VIAL) -] 50 units SQ HS 05/06/17 Insulin Glargine,Hum.rec.anlog [Lantus (10mL VIAL) -] 56 units SQ HS 05/06/17 Aspirin Coated [Ecotrin -] 325 mg PO DAILY #30 tablet. 09/28/17 Anemia: No Asthma: No Cardiac Disorders: Yes (CORONARY ARTERIOSCLEROSIS) CVA: No COPD: No CHF: No Dementia: No Diabetes: Yes GI Disorders: Yes (gerd, hiatal hernia,rectal hemorrhage,gastritis) Disorders: No HTN: Yes Hypercholesterolemia: Yes Liver Disease: No Seizures: No Thyroid Disease: No - Surgical History Abdominal Surgery: Yes Appendectomy: No Cardiac Surgery: Yes (triple bypass,cardiac stents) Cholecystectomy: No Lung Surgery: No Neurologic Surgery: No Orthopedic Surgery: No - Immunization History Immunization Up to Date: Yes - Suicide/Smoking/Psychosocial Hx Smoking Status: No Smoking History: Never smoked Have you smoked in the past 12 months: No Number of Cigarettes Smoked Daily: 0 If you are a former smoker, when did you quit?: Over 30 years ago Hx Alcohol Use: No Drug/Substance Use Hx: No Substance Use Type: None Hx Substance Use Treatment: No *Physical Exam - Vital Signs Last Vital Signs Temp Pulse Resp BP Pulse Ox 97.5 F L 64 18 186/82 H 99 01/25/19 16:12 01/25/19 16:12 01/25/19 16:12 01/25/19 16:12 01/25/19 16:12
[2019-01-25 16:50] LABS: BASO % 0.9 % (0-2.0); EOS % 1.3 % (0-4.5); HEMATOCRIT 39.9 % (32.4-45.2); HEMOGLOBIN 13.8 GM/dL (10.7-15.3); LYMPH % 26.7 % (8-40); MCH 29.4 pg (25.7-33.7); MCHC 34.5 g/dl (32.0-36.0); MEAN CELL VOLUME 85.1 fl (80-96); MEAN PLT VOLUME 7.8 fl (7.5-11.1); MONO % 7.3 % (3.8-10.2); NEUT % 63.8 % (42.8-82.8); PLATELET COUNT 257 K/MM3 (134-434); RBC 4.69 M/mm3 (3.60-5.2); RDW 13.9 % (11.6-15.6); WHITE BLOOD COUNT 9.6 K/mm3 (4.0-10.0)
--- NOTE | 2019-01-25 16:54 | PDOC ---
History of Present Illness - General Chief Complaint: Chest Pain Stated Complaint: CHEST PAIN - History of Present Illness Initial Comments: 79 y/o/f here for chest pain for the last week. She states the pain is epigastric and under her left breast. The pain has been intermittent and she does not have any pain right now, at its worst the pain is a 5/10 and feels like her GERD pain. She has not taken any acid reflux medications for the last week. She denies any fall or trauma. She complains of mild nausea but no vomiting. She denies any episodes of SOB, palpitations, lightheadedness, fever, cough, dysuria, or other concerns. She states her BP has been elevated above normal for her for the last week. She drove down to [place] to visit family last Sunday and returned last Sunday. She states she had a lot of [place] food [place] that may have aggravated her GERD, her pain is worse with eating. She had an upset stomach and diarrhea 2 days ago, but no episodes since. PMHx: CAD, HTN, HLD, GERD SHx: CABG, stent Social Hx: former smoker, denies current tobacco and alcohol use PCP: Dr. Schaffer Past History - Past Medical History Allergies/Adverse Reactions: Allergies Allergy/AdvReac Type Severity Reaction Status Date / Time No Known Allergies Allergy Verified 01/25/19 16:17 Home Medications: Ambulatory Orders Valsartan [Diovan] 320 mg PO DAILY 12/27/13 Acarbose [Precose -] 50 mg PO TID 05/21/14 Glipizide [Glucotrol -] 10 mg PO BIDAC #7 tablet 05/24/14 Insulin Sliding Scale [Novolog Vial Sliding Scale -] 0 units SQ ACHS 7 Days pen 05/24/14 Isosorbide Mononitrate [Imdur -] 120 mg PO DAILY 05/18/15 Metoprolol Succinate [Toprol XL -] 50 mg PO DAILY 03/01/16 Aspirin [ASA -] 81 mg PO BID 05/06/17 Insulin Glargine,Hum.rec.anlog [Lantus (10mL VIAL) -] 50 units SQ HS 05/06/17 Insulin Glargine,Hum.rec.anlog [Lantus (10mL VIAL) -] 56 units SQ HS 05/06/17 Aspirin Coated [Ecotrin -] 325 mg PO DAILY #30 tablet. 09/28/17 Ranitidine [Zantac -] 150 mg PO BID PRN #30 tablet 01/25/19 Anemia: No Asthma: No Cardiac Disorders: Yes (CORONARY ARTERIOSCLEROSIS) CVA: No COPD: No CHF: No Dementia: No Diabetes: Yes GI Disorders: Yes (gerd, hiatal hernia,rectal hemorrhage,gastritis) Disorders: No HTN: Yes Hypercholesterolemia: Yes Liver Disease: No Seizures: No Thyroid Disease: No - Surgical History Abdominal Surgery: Yes Appendectomy: No Cardiac Surgery: Yes (triple bypass,cardiac stents) Cholecystectomy: No Lung Surgery: No Neurologic Surgery: No Orthopedic Surgery: No - Immunization History Immunization Up to Date: Yes - Suicide/Smoking/Psychosocial Hx Smoking Status: No Smoking History: Never smoked Have you smoked in the past 12 months: No Number of Cigarettes Smoked Daily: 0 If you are a former smoker, when did you quit?: Over 30 years ago Hx Alcohol Use: No Drug/Substance Use Hx: No Substance Use Type: None Hx Substance Use Treatment: No Review of Systems - Review of Systems Constitutional: No: Chills, Fever HEENTM: No: Blurred Vision, Nose Congestion Respiratory: No: Cough, Shortness of Breath Cardiac (ROS): Yes: Chest Pain. No: Lightheadedness, Palpitations ABD/GI: Yes: Diarrhea. No: Constipated, Nausea, Vomiting : No: Burning, Hematuria Musculoskeletal: No: Back Pain Integumentary: No: Rash Neurological: No: Headache, Numbness *Physical Exam - Vital Signs Last Vital Signs Temp Pulse Resp BP Pulse Ox 97.5 F L 64 18 186/82 H 99 01/25/19 16:12 01/25/19 16:12 01/25/19 16:12 01/25/19 16:12 01/25/19 16:12 - Physical Exam General Appearance: Yes: Nourished, Appropriately Dressed HEENT: positive: EOMI, Normal Voice, Symmetrical Neck: positive: Trachea midline, Supple Respiratory/Chest: positive: Lungs Clear. negative: Crackles, Rales, Wheezing Cardiovascular: positive: Regular Rhythm, Regular Rate, S1, S2 Gastrointestinal/Abdominal: positive: Normal Bowel Sounds, Tender (epigastric tenderness to palpation on exam), Soft Musculoskeletal: negative: Vertebral Tenderness Extremity: positive: Normal Capillary Refill. negative: Swelling Integumentary: positive: Normal Color Neurologic: positive: Fully Oriented, Alert, Motor Strength 5/5 Heart Score/ECG Review #1 01/25/19 17:13 vent rate: 59 bpm OK interval: 218 ms QRS duration: 92ms QT/QTc 418/413 P-R-T axes: 48 7 46 sinus bradycardia with 1st degreee AV block No acute ischemic change ED Treatment Course - LABORATORY CBC & Chemistry Diagram: 01/26/19 05:00 01/26/19 05:00 Medical Decision Making - Medical Decision Making 01/25/19 17:07 78 y/o/f here for chest pain for the last week. She states the pain is epigastric and under her left breast. The pain has been intermittent and she does not have any pain right now, at its worst the pain is a 5/10 and feels like her GERD pain. Epigastric tenderness to palpation on physical exam. Heart sounds normal, lungs clear to auscultation bilaterally. CBC, CMP, lipase, coags, cardiac profile, CXR, EKG ordered for workup. 01/25/19 18:25 CBC, coags and CMP grossly normal. CXR reviewed - normal Patient HEART score is 6 due to age, EKG, and multiple risk factors. Will admit patient for obs and repeat trops. 01/25/19 18:[address] Schaffer, asked to admit patient under Dr. Adams. Spoke with Dr. Adams, patient is admitted for obs. Patient aware of plan and ok with staying for obs. *DC/Admit/Observation/Transfer Diagnosis at time of Disposition: Chest pain Qualifiers: Chest pain type: precordial pain Qualified Code(s): R07.2 - Precordial pain - Prescriptions - Referrals - Patient Instructions - Post Discharge Activity
[2019-01-25 17:13] LABS: PROTHROMBIN TIME (PATIENT) 11.8 SEC (9.7-13.0)
[2019-01-25 17:42] LABS: ALBUMIN 3.7 g/dl (3.4-5.0); BILIRUBIN,TOTAL 0.7 mg/dL (0.2-1); BLOOD UREA NITROGEN 8.2 mg/dL (7-18); CALCIUM 10.6 mg/dL (8.5-10.1); CREATININE 0.9 mg/dL (0.55-1.3); POTASSIUM 4.3 mmol/L (3.5-5.1); TOT PROT 7.4 g/dl (6.4-8.2)
--- NOTE | 2019-01-25 17:50 | PDOC ---
Attending Attestation - Resident Resident Name: DottieKaren - ED Attending Attestation I have performed the following: I have examined & evaluated the patient, The case was reviewed & discussed with the resident, I agree w/resident's findings & plan, Exceptions are as noted - HPI HPI: 01/25/19 17:45 79-year-old female with history of CAD (status post CABG), diabetes, hypertension presents with atraumatic left-sided chest, epigastric pain for the past week, intermittent, worse postprandially - Physicial Exam PE: 01/25/19 17:45 Patient is awake and alert, obese, in no distress Normocephalic, atraumatic PERRLA, EOMI, no scleral icterus Neck is supple CTA RRR Epigastric and left anterior chest wall tenderness to palpation, no guarding or rebound No lower extremity edema - Medical Decision Making 01/25/19 17:50 Patient is 79-year-old female with multiple comorbidities who presents with atraumatic epigastric and left sided chest pain for the past week. Patient [place] [facility]. Differential diagnoses includes ACS versus dyspepsia versus PE. EKG shows no evidence of acute ischemia or right sided heart strain. Chest x-ray reveals no evidence of infiltrate or effusion. We'll obtain CBC/CMP/cardiac profile/d- dimer. Will reassess. Heart Score/ECG Review - History History: Moderately suspicious - Electrocardiogram EKG: Non specific repolarization disturbance - Age Age: >/= 65 - Risk Factors Risk Factors Heart Score: Yes Hx Hypercholesterolemia, Yes Hx Hypertension, Yes Hx Diabetes, Yes Hx Obesity Based on the list above the patient has:: >/=3 risk factors or Hx atherosclerotic disease - Troponin Troponin: </= normal limit - Score Heart Score - Total: 6
[2019-01-26 04:17] VITALS: BMI 31.6
[2019-01-26] MEDS ORDERED: glipiZIDE 5 MG TABLET (FP) ONE ×2 (05:21→16:56)
[2019-01-26] MEDS: glipiZIDE 10 MG TABLET (FP) PO SCH ×2 (06:00→17:14)
[2019-01-26] MEDS: INSULIN SLIDING SCALE (NOVOLOG) 1 VIAL SQ SCH ×4 (06:03→21:03)
[2019-01-26 07:22] LABS: ALBUMIN 3.2 g/dl (3.4-5.0); BILIRUBIN,TOTAL 0.8 mg/dL (0.2-1); CALCIUM 9.8 mg/dL (8.5-10.1); CREATININE 0.9 mg/dL (0.55-1.3); POTASSIUM 3.9 mmol/L (3.5-5.1); TOT PROT 6.2 g/dl (6.4-8.2)
[2019-01-26 07:36] LABS: BASO % 0.7 % (0-2.0); EOS % 2.4 % (0-4.5); HEMATOCRIT 37.5 % (32.4-45.2); LYMPH % 32.2 % (8-40); MCH 29.5 pg (25.7-33.7); MCHC 34.6 g/dl (32.0-36.0); MEAN CELL VOLUME 85.2 fl (80-96); MEAN PLT VOLUME 8.1 fl (7.5-11.1); NEUT % 58.7 % (42.8-82.8); PLATELET COUNT 231 K/MM3 (134-434); RBC 4.41 M/mm3 (3.60-5.2); RDW 13.8 % (11.6-15.6); WHITE BLOOD COUNT 8.2 K/mm3 (4.0-10.0)
--- NOTE | 2019-01-26 08:39 | CON.CARD ---
Consult - Past Medical History Cardio/Vascular: Yes: CAD, HTN, Hyperlipdemia Pulmonary: Yes: Asthma Gastrointestinal: Yes: Gastritis, GERD ENT: Yes: Other (vertigo) Endocrine: Yes: Diabetes Mellitus - Past Surgical History Past Surgical History: Yes: CABG, Stent - Alcohol/Substance Use Hx Alcohol Use: No - Smoking History Smoking history: Never smoked Have you smoked in the past 12 months: No Aproximately how many cigarettes per day: 0 If you are a former smoker, when did you quit?: Over 30 years ago - Social History ADL: Independent History of Recent Travel: No Home Medications - Allergies Allergies/Adverse Reactions: Allergies Allergy/AdvReac Type Severity Reaction Status Date / Time No Known Allergies Allergy Verified 01/25/19 16:17 - Home Medications Home Medications: Ambulatory Orders Valsartan [Diovan] 320 mg PO DAILY 12/27/13 Acarbose [Precose -] 50 mg PO TID 05/21/14 Glipizide [Glucotrol -] 10 mg PO BIDAC #7 tablet 05/24/14 Insulin Sliding Scale [Novolog Vial Sliding Scale -] 0 units SQ ACHS 7 Days pen 05/24/14 Isosorbide Mononitrate [Imdur -] 120 mg PO DAILY 05/18/15 Metoprolol Succinate [Toprol XL -] 50 mg PO DAILY 03/01/16 Aspirin [ASA -] 81 mg PO BID 05/06/17 Insulin Glargine,Hum.rec.anlog [Lantus (10mL VIAL) -] 50 units SQ HS 05/06/17 Insulin Glargine,Hum.rec.anlog [Lantus (10mL VIAL) -] 56 units SQ HS 05/06/17 Aspirin Coated [Ecotrin -] 325 mg PO DAILY #30 tablet. 09/28/17 Ranitidine [Zantac -] 150 mg PO BID PRN #30 tablet 01/25/19 Vital Signs: Vital Signs Temperature 97.9 F 01/26/19 06:00 Pulse Rate 61 01/26/19 06:00 Respiratory Rate 18 01/26/19 06:00 Blood Pressure 163/65 01/26/19 06:00 O2 Sat by Pulse Oximetry (%) 99 01/26/19 02:30 - Other Data Labs, Other Data: CBC, BMP 01/26/19 05:00 01/26/19 05:00 INR, PTT INR 1.00 (0.83-1.09) 01/25/19 16:30 Troponin, BNP 01/25/19 01/25/19 01/26/19 16:30 16:30 03:20 Troponin I Cancelled 0.04 0.04 Troponin, BNP 01/25/19 01/25/19 01/26/19 16:30 16:30 03:20 Troponin I Cancelled 0.04 0.04 Assessment/Plan Echo 09/2017: nl LV, RV. valve fxn WNL
--- NOTE | 2019-01-26 08:44 | CON.CARD ---
Consult Consult Specialty:: cardio - History of Present Illness Chief Complaint: chest pain History of Present Illness: 79 F here with CP describes close to one week of non-exertional chest discomfort, not severe, diffuse under L breast and all the way to central area. assctd with flatulence WHICH RELIEVED THE DISCOMFORT. also ASSCTD WITH A LOT OF GERD SX'S. also mild tenderness in upper abdomen diffusely no assct diaph, sob. has had this type of pain before off and on over the years, NOT LIKE HER PRIOR ANGINA BEFORE CABG (that was like intense heaviness in chest). PMH: CABG, ? PCI HTN DM HLD GERD - Past Medical History Cardio/Vascular: Yes: CAD, HTN, Hyperlipdemia Pulmonary: Yes: Asthma Gastrointestinal: Yes: Gastritis, GERD ENT: Yes: Other (vertigo) Endocrine: Yes: Diabetes Mellitus - Past Surgical History Past Surgical History: Yes: CABG, Stent - Alcohol/Substance Use Hx Alcohol Use: No - Smoking History Smoking history: Never smoked Have you smoked in the past 12 months: No Aproximately how many cigarettes per day: 0 If you are a former smoker, when did you quit?: Over 30 years ago - Social History ADL: Independent History of Recent Travel: No Home Medications - Allergies Allergies/Adverse Reactions: Allergies Allergy/AdvReac Type Severity Reaction Status Date / Time No Known Allergies Allergy Verified 01/25/19 16:17 - Home Medications Home Medications: Ambulatory Orders Valsartan [Diovan] 320 mg PO DAILY 12/27/13 Acarbose [Precose -] 50 mg PO TID 05/21/14 Glipizide [Glucotrol -] 10 mg PO BIDAC #7 tablet 05/24/14 Insulin Sliding Scale [Novolog Vial Sliding Scale -] 0 units SQ ACHS 7 Days pen 05/24/14 Isosorbide Mononitrate [Imdur -] 120 mg PO DAILY 05/18/15 Metoprolol Succinate [Toprol XL -] 50 mg PO DAILY 03/01/16 Aspirin [ASA -] 81 mg PO BID 05/06/17 Insulin Glargine,Hum.rec.anlog [Lantus (10mL VIAL) -] 50 units SQ HS 05/06/17 Insulin Glargine,Hum.rec.anlog [Lantus (10mL VIAL) -] 56 units SQ HS 05/06/17 Aspirin Coated [Ecotrin -] 325 mg PO DAILY #30 tablet. 09/28/17 Ranitidine [Zantac -] 150 mg PO BID PRN #30 tablet 01/25/19 Family Disease History - Family Disease History Family History: Denies (no known cmp) Review of Systems - Review of Systems Constitutional: denies: Chills, Fever Eyes: denies: Eye Pain HENT: denies: Nasal Congestion Neck: denies: Stiffness Cardiovascular: denies: Palpitations Respiratory: denies: Orthopnea, PND Gastrointestinal: denies: Diarrhea, Rectal Bleeding Genitourinary: denies: Burning, Hematuria Musculoskeletal: denies: Muscle Pain Integumentary: denies: Rash Neurological: denies: Numbness, Seizure, Syncope Endocrine: denies: Excessive Sweating Hematology/Lymphatic: denies: Excessive Bleeding Vital Signs: Vital Signs Temperature 97.9 F 01/26/19 06:00 Pulse Rate 61 01/26/19 06:00 Respiratory Rate 18 01/26/19 06:00 Blood Pressure 163/65 01/26/19 06:00 O2 Sat by Pulse Oximetry (%) 99 01/26/19 02:30 Constitutional: Yes: Well Nourished, No Distress Eyes: No: Sclera Icterus HENT: No: Nasal Congestion Neck: No: Decreased ROM Respiratory: Yes: CTA Bilaterally. No: Accessory Muscle Use, Rales, Wheezes Gastrointestinal: Yes: Normal Bowel Sounds. No: Distention, Hepatomegaly, Palpable Mass, Tenderness Cardiovascular: Yes: Regular Rate and Rhythm JVD: No Carotid Bruit: No PMI: Non-Displaced Heart Sounds: Yes: S1, S2. No: Gallop Murmur: No: Systolic Murmur, Diastolic Murmur Musculoskeletal: Yes: Other (No kyphosis) Extremities: No: Cold, Cool, Cyanosis Edema: No Peripheral Pulses: 2+ Left Carotid, 2+ Right Carotid, 2+ Left Doralis Pedis, 2+ Right Dorsalis Pedis Integumentary: No: Jaundice Neurological: Yes: Alert, Oriented (x3) Psychiatric: No: Agitated - Other Data Labs, Other Data: CBC, BMP 01/26/19 05:00 01/26/19 05:00 INR, PTT INR 1.00 (0.83-1.09) 01/25/19 16:30 Troponin, BNP 01/25/19 01/25/19 01/26/19 16:30 16:30 03:20 Troponin I Cancelled 0.04 0.04 Troponin, BNP 01/25/19 01/25/19 01/26/19 16:30 16:30 03:20 Troponin I Cancelled 0.04 0.04 Laboratory Tests 01/25/19 01/25/19 01/26/19 16:30 16:30 03:20 WBC Hgb Plt Count D-Dimer 1200 H Sodium Potassium Carbon Dioxide BUN Creatinine Total Bilirubin AST ALT Troponin I 0.04 0.04 Triglycerides 94 Cholesterol 156 Total LDL Cholesterol 93 HDL Cholesterol 47 01/26/19 01/26/19 05:00 05:00 WBC 8.2 Hgb 13.0 Plt Count 231 D-Dimer Sodium 142 Potassium 3.9 Carbon Dioxide 28 BUN 7.0 Creatinine 0.9 Total Bilirubin 0.8 AST 18 ALT 17 Troponin I Triglycerides Cholesterol Total LDL Cholesterol HDL Cholesterol Assessment/Plan Echo 09/2017: nl LV, RV. nl valve fxn MPI 06/2018 ([facility]): no STs. no ischemia (or infarct). nl EF. no TID CXR: clear lungs/pleura CTA chest: no PE, no congestion/effusions ECG: NSR, nl axis. no path q's. NSTWAs slightly more pronounced vs 06/2108 chest pain, h/o GERD: -trop neg x 2, ECG no ischemic changes -CTA neg for PE -cp diff from prior angina sx's, and similar to her prior GERD and gas/bloating- -with very strong GI features -given recent MPI no ischemia 7 months ago, with no change in present sx's from prior, and low risk clinical markers, do not feel pt requires repeat ischemia eval -outpt f/u with dr kate rec'd HTN: -BP at times suboptimal here -cont home meds, observe trend--outpt f/u DM: -per primary HPL: -not on statin per ER's home med list -needs reconciliation, outpt followup re: ? prior intolerance (she has elevated ASCVD risk and is diabetic, LDL > 70)--per dr kate d/c tele
[2019-01-26] MEDS: ENOXAPARIN NA (PORCINE) 40 MG/0.4 ML DISP.SYRIN SQ SCH (10:15)
[2019-01-26] MEDS: ISOSORBIDE MONONITRATE 60 MG TAB.SR.24H (FP) PO SCH (10:16)
[2019-01-26] MEDS: ASPIRIN COATED 81 MG TABLET.EC PO SCH (10:16)
--- NOTE | 2019-01-26 14:27 | HP ---
Admitting History and Physical - Admission History of Present Illness: Pt is a 79 y/o female w/ PMH significant for HTN, HLD, CAD and GERD. Pt presented to the ER for chest pain for the last week. She states the pain is epigastric and under her left breast. The pain has been intermittent and she does not have any pain right now, at its worst the pain is a 5/10 and feels like her GERD pain. She has not taken any acid reflux medications for the last week. She complains of mild nausea but no vomiting. She states her BP has been elevated above normal for her for the last week. She drove down to [place] to visit family last Sunday and returned last Sunday. She states she had a lot of [place] that may have aggravated her GERD, her pain is worse with eating. She had an upset stomach and diarrhea 2 days ago, but no episodes since. - Past Medical History Cardiovascular: Yes: CAD, HTN, Hyperlipdemia Pulmonary: Yes: Asthma Gastrointestinal: Yes: Gastritis, GERD ENT: Yes: Other (vertigo) Endocrine: Yes: Diabetes Mellitus - Past Surgical History Past Surgical History: Yes: CABG, Stent - Smoking History Smoking history: Never smoked Have you smoked in the past 12 months: No Aproximately how many cigarettes per day: 0 If you are a former smoker, when did you quit?: Over 30 years ago - Alcohol/Substance Use Hx Alcohol Use: No - Social History ADL: Independent History of Recent Travel: No Home Medications - Allergies Allergies/Adverse Reactions: Allergies Allergy/AdvReac Type Severity Reaction Status Date / Time No Known Allergies Allergy Verified 01/25/19 16:17 - Home Medications Home Medications: Ambulatory Orders Valsartan [Diovan] 320 mg PO DAILY 12/27/13 Acarbose [Precose -] 50 mg PO TID 05/21/14 Glipizide [Glucotrol -] 10 mg PO BIDAC #7 tablet 05/24/14 Insulin Sliding Scale [Novolog Vial Sliding Scale -] 0 units SQ ACHS 7 Days pen 05/24/14 Isosorbide Mononitrate [Imdur -] 120 mg PO DAILY 05/18/15 Metoprolol Succinate [Toprol XL -] 50 mg PO DAILY 03/01/16 Aspirin [ASA -] 81 mg PO BID 05/06/17 Insulin Glargine,Hum.rec.anlog [Lantus (10mL VIAL) -] 50 units SQ HS 05/06/17 Insulin Glargine,Hum.rec.anlog [Lantus (10mL VIAL) -] 56 units SQ HS 05/06/17 Aspirin Coated [Ecotrin -] 325 mg PO DAILY #30 tablet. 09/28/17 Ranitidine [Zantac -] 150 mg PO BID PRN #30 tablet 01/25/19 Family Disease History - Family Disease History Family History: Unremarkable Review of Systems - Review of Systems Constitutional: reports: No Symptoms Eyes: reports: No Symptoms HENT: reports: No Symptoms Neck: reports: No Symptoms Cardiovascular: reports: Chest Pain Gastrointestinal: reports: Nausea Genitourinary: reports: No Symptoms Physical Examination Vital Signs: Vital Signs Temperature 98 F 01/26/19 09:00 Pulse Rate 62 01/26/19 09:00 Respiratory Rate 18 01/26/19 06:00 Blood Pressure 145/90 01/26/19 09:00 O2 Sat by Pulse Oximetry (%) 100 01/26/19 09:00 Constitutional: Yes: Well Nourished Eyes: Yes: WNL HENT: Yes: WNL Neck: Yes: WNL, Supple Cardiovascular: Yes: WNL, Regular Rate and Rhythm Respiratory: Yes: WNL, Regular, CTA Bilaterally Gastrointestinal: Yes: WNL, Normal Bowel Sounds, Soft Extremities: Yes: WNL Edema: No Neurological: Yes: WNL, Alert, Oriented ...Motor Strength: WNL Labs: CBC, BMP 01/26/19 05:00 01/26/19 05:00 Problem List - Problems (1) Chest pain Assessment/Plan: Tele has been negative Atypical chest pain ?GI related Code(s): R07.9 - CHEST PAIN, UNSPECIFIED Qualifiers: Chest pain type: precordial pain Qualified Code(s): R07.2 - Precordial pain (2) HLD (hyperlipidemia) Assessment/Plan: Pt not on any statin was not able to tolerate in the past Code(s): E78.5 - HYPERLIPIDEMIA, UNSPECIFIED Qualifiers: Hyperlipidemia type: pure hypercholesterolemia Qualified Code(s): E78.00 - Pure hypercholesterolemia, unspecified; E78.0 - Pure hypercholesterolemia (3) HTN (hypertension) Assessment/Plan: Cont lipitor[ Code(s): I10 - ESSENTIAL (PRIMARY) HYPERTENSION Qualifiers: Hypertension type: essential hypertension Qualified Code(s): I10 - Essential (primary) hypertension (4) CAD (coronary artery disease) Code(s): I25.10 - ATHSCL HEART DISEASE OF [place] CORONARY ARTERY W/O ANG PCTRS Qualifiers: Coronary Disease-Associated Artery/Lesion type: [place] artery [place] vs. transplanted heart: [place] heart Associated angina: with stable angina Qualified Code(s): I25.118 - Atherosclerotic heart disease of [place] coronary artery with other forms of angina pectoris (5) GERD (gastroesophageal reflux disease) Code(s): K21.9 - GASTRO-ESOPHAGEAL REFLUX DISEASE WITHOUT ESOPHAGITIS (6) Diabetes Assessment/Plan: Cont levemir/glucotrol Cont sliding scale Code(s): E11.9 - TYPE 2 DIABETES MELLITUS WITHOUT COMPLICATIONS Qualifiers: Diabetes mellitus type: type 2
--- NOTE | 2019-01-26 16:48 | EKG ---
Test Reason : Blood Pressure : / mmHG Vent. Rate : 059 BPM Atrial Rate : 059 BPM P-R Int : 218 ms QRS Dur : 092 ms QT Int : 418 ms P-R-T Axes : 048 007 046 degrees QTc Int : 413 ms SINUS BRADYCARDIA WITH 1ST DEGREE A-V BLOCK NONSPECIFIC T WAVE ABNORMALITY ABNORMAL ECG WHEN COMPARED WITH ECG OF 06-JUL-2018 18:47, NO SIGNIFICANT CHANGE WAS FOUND Confirmed by REESE PELAEZ MD ([id number]) on 01/26/2019 4:48:08 PM Referred By: Confirmed By:REESE PELAEZ MD
[2019-01-26] MEDS ORDERED: INSULIN (LEVEMIR) 100 UNITS/ML UNITS SQ SCH (22:00)
[2019-01-27] MEDS ORDERED: glipiZIDE 5 MG TABLET (FP) ONE (06:03)
[2019-01-27] MEDS: INSULIN SLIDING SCALE (NOVOLOG) 1 VIAL SQ SCH ×2 (06:26→13:12)
[2019-01-27] MEDS: glipiZIDE 10 MG TABLET (FP) PO SCH (06:27)
[2019-01-27 07:04] VITALS: TEMP 97.5
[2019-01-27] MEDS: ENOXAPARIN NA (PORCINE) 40 MG/0.4 ML DISP.SYRIN SQ SCH (09:41)
[2019-01-27] MEDS: ISOSORBIDE MONONITRATE 60 MG TAB.SR.24H (FP) PO SCH (09:41)
[2019-01-27] MEDS: ASPIRIN COATED 81 MG TABLET.EC PO SCH (09:41)
--- NOTE | 2019-01-27 11:23 | PN ---
Progress Note, Physician Chief Complaint: cp History of Present Illness: no more cp. no sob, diaph, presyncope - Current Medication List Current Medications: Active Medications Aspirin (Ecotrin -) 81 mg PO DAILY [facility] Last Admin: 01/27/19 09:41 Dose: 81 mg Enoxaparin Sodium (Lovenox -) 40 mg SQ DAILY [facility] Last Admin: 01/27/19 09:41 Dose: 40 mg Glipizide (Glucotrol -) 10 mg PO BIDAC [facility] Last Admin: 01/26/19 17:14 Dose: 10 mg Insulin Aspart (Novolog Vial Sliding Scale -) 1 vial SQ [facility]; Protocol Last Admin: 01/27/19 06:26 Dose: Not Given Insulin Detemir (Levemir Vial) 50 units SQ HS [facility] Last Admin: 01/26/19 21:03 Dose: 50 units Isosorbide Mononitrate (Imdur -) 120 mg PO DAILY [facility] Last Admin: 01/27/19 09:41 Dose: 120 mg Metoprolol Succinate (Toprol Xl -) 50 mg PO DAILY [facility] Last Admin: 01/27/19 09:41 Dose: 50 mg - Objective Vital Signs: Vital Signs Temperature 97.5 F L 01/27/19 08:29 Pulse Rate 62 01/27/19 08:29 Respiratory Rate 18 01/27/19 08:31 Blood Pressure 154/84 01/27/19 08:29 O2 Sat by Pulse Oximetry (%) 96 01/27/19 08:31 Constitutional: Yes: Well Nourished, No Distress, Calm Cardiovascular: Yes: Regular Rate and Rhythm, S1, S2. No: Gallop Respiratory: Yes: Regular, CTA Bilaterally. No: Accessory Muscle Use, Rales, Rhonchi, Wheezes Extremities: No: Cold Edema: No Neurological: Yes: Alert, Oriented Psychiatric: No: Agitated Labs: CBC, BMP 01/26/19 05:00 01/26/19 05:00 INR, PTT INR 1.00 (0.83-1.09) 01/25/19 16:30 Assessment/Plan Echo 09/2017: nl LV, RV. nl valve fxn MPI 06/2018 (ihsan): no STs. no ischemia (or infarct). nl EF. no TID CXR: clear lungs/pleura CTA chest: no PE, no congestion/effusions ECG: NSR, nl axis. no path q's. NSTWAs slightly more pronounced vs 06/2108 chest pain, h/o GERD: -trop neg x 2, ECG no ischemic changes -CTA neg for PE -cp diff from prior angina sx's, and similar to her prior GERD and gas/bloating- -with very strong GI features -given recent MPI no ischemia 7 months ago, with no change in present sx's from prior, and low risk clinical markers, do not feel pt requires repeat ischemia eval--ok for d/c from CV standpoint, with outpt f/u with dr humble sylvester HTN: -BP at times suboptimal here -cont home metoprolol, nitrates -add valsartan 80 (no listed allergy, creat/K normal) DM: -per primary HPL: -not on statin per ER's home med list -reports prior intolerance--outpt cardio f/u
[2019-01-27] MEDS ORDERED: VALSARTAN 80 MG TABLET (UD) PO SCH (11:30)
--- NOTE | 2019-01-27 15:05 | DS ---
Physical Examination Vital Signs: Vital Signs Temperature 97.5 F L 01/27/19 08:29 Pulse Rate 62 01/27/19 08:29 Respiratory Rate 18 01/27/19 08:31 Blood Pressure 154/84 01/27/19 08:29 O2 Sat by Pulse Oximetry (%) 96 01/27/19 08:31 Labs: CBC, BMP 01/26/19 05:00 01/26/19 05:00 Discharge Summary Reason For Visit: CHEST PAIN Current Active Problems Chest pain (Acute) GERD (gastroesophageal reflux disease) (Acute) Condition: Improved - Instructions Diet, Activity, Other Instructions: Resume previous diet and activities Follow-up with Dr. Hodges as scheduled Referrals: Indio Friedman MD [Staff Physician] - Mavis Schaffer MD [Primary Care Provider] - Disposition: HOME - Home Medications Comprehensive Discharge Medication List: Ambulatory Orders Valsartan [Diovan] 320 mg PO DAILY 12/27/13 Acarbose [Precose -] 50 mg PO TID 05/21/14 Glipizide [Glucotrol -] 10 mg PO BIDAC #7 tablet 05/24/14 Insulin Sliding Scale [Novolog Vial Sliding Scale -] 0 units SQ ACHS 7 Days pen 05/24/14 Isosorbide Mononitrate [Imdur -] 120 mg PO DAILY 05/18/15 Metoprolol Succinate [Toprol XL -] 50 mg PO DAILY 03/01/16 Aspirin [ASA -] 81 mg PO BID 05/06/17 Insulin Glargine,Hum.rec.anlog [Lantus (10mL VIAL) -] 50 units SQ HS 05/06/17 Insulin Glargine,Hum.rec.anlog [Lantus (10mL VIAL) -] 56 units SQ HS 05/06/17 Aspirin Coated [Ecotrin -] 325 mg PO DAILY #30 tablet. 09/28/17 Ranitidine [Zantac -] 150 mg PO BID PRN #30 tablet 01/25/19 ne home
[2019-01-27 16:12] VITALS: BP 129/66; PULSE 57
--- NOTE | 2019-01-27 16:34 | ECHO ---
Name: WILL FLORENTINO Exam:Adult Echocardiogram Study Date: 01/27/2019 11:25 AM Age: 79 yrs Reason For Study: [facility] Height: 62 in Weight: 172 lb BSA: 1.8 m2 MMode/2D Measurements & Calculations IVSd: 0.95 cm Ao root diam: 2.1 cm LVIDd: 4.2 cm LA dimension: 3.6 cm LVIDs: 2.7 cm ACS: 1.7 cm LVPWd: 0.71 cm IVSs: 1.1 cm LVPWs: 1.1 cm EDV(Teich): 80.7 ml ESV(Teich): 26.4 ml Doppler Measurements & Calculations MV E max cameron: 69.1 cm/sec Ao V2 max: 115.5 cm/sec MV A max cameron: 68.6 cm/sec Ao max P.3 mmHg MV E/A: 1.0 TR max cameron: 222.9 cm/sec PI end-d cameron: 84.8 cm/sec TR max P.9 mmHg Med Peak E' Cameron: 5.2 cm/sec Med E/e': 13.4 Lat Peak E' Cameron: 6.6 cm/sec Lat E/e': 10.5 Procedure A complete two-dimensional transthoracic echocardiogram was performed (2D, M-mode, Doppler and color flow Doppler). Technically limited study. Left Ventricle The left ventricle is normal in size. Left ventricular systolic function is normal. Ejection Fraction = 60- 65%. Abnormal septal motion. Right Ventricle The right ventricle is normal size. The right ventricular systolic function is normal. Atria The left atrial size is normal. Right atrial size is normal. Mitral Valve There is mild mitral annular calcification. There is trace mitral regurgitation. Tricuspid Valve The tricuspid valve is normal in structure and function. There is moderate tricuspid regurgitation. R ight ventricular systolic pressure is normal. Aortic Valve The aortic valve is normal in structure and function. No aortic regurgitation is present. Pulmonic Valve The pulmonic valve is not well visualized. Mild pulmonic valvular regurgitation. Great Vessels The aortic root is normal size. Pericardium/Pleura There is no pericardial effusion. Interpretation Summary The left ventricle is normal in size. Left ventricular systolic function is normal. Ejection Fraction = 60-65%. Abnormal septal motion The right ventricular systolic function is normal. The left atrial size is normal. Right atrial size is normal. There is mild mitral annular calcification. There is trace mitral regurgitation. There is moderate tricuspid regurgitation. Right ventricular systolic pressure is normal. Mild pulmonic valvular regurgitation. There is no pericardial effusion. When compared to study dated 07/08/18, no significant changes Adrian Allison MD 01/27/2019 04:34 PM
== END 2019-01-27 16:47 | disposition home or self-care (01) | DRG 313 ==
LOC: JER 15:55 → JERBED 18:51 → J4W 01-26 02:55
PROVIDERS: ADMIT Internal Medicine; ATTEND Internal Medicine
DX: R07.89 Other chest pain (principal); I25.10 Atherosclerotic heart disease of native coronary artery without angina pectoris; I10 Essential (primary) hypertension; E78.5 Hyperlipidemia, unspecified; K21.9 Gastro-esophageal reflux disease without esophagitis; Z87.891 Personal history of nicotine dependence; E11.9 Type 2 diabetes mellitus without complications; Z79.4 Long term (current) use of insulin; I44.0 Atrioventricular block, first degree
CPT/HCPCS: 36415; 71046-TC-FY; 71275-TC; 80053; 80061; 82550; 82553; 82962; 83721; 84484; 85025; 85379; 85610; 85730; 93005; 93010; 93306-TC; 99285-25

== ENCOUNTER 2020-02-09 18:24 | Observation (INO) | payer OTHER ==
--- NOTE | 2020-02-09 18:46 | PDOC ---
Rapid Medical Evaluation Time Seen by Provider: 02/09/20 18:44 Medical Evaluation: Allergies Allergy/AdvReac Type Severity Reaction Status Date / Time No Known Allergies Allergy Verified 11/03/19 16:57 02/09/20 18:44 Pt with PMH of CAD, triple bypass, presents for evaluation of chest tightness for the past three days. 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 Gila Ayon Discharge Disposition - Diagnosis Chest pain - Referrals Referrals: Mavis Schaffer MD [Primary Care Provider] - - Patient Instructions - Post Discharge Activity
[2020-02-09 18:49] VITALS: BMI 31.1
--- NOTE | 2020-02-09 20:32 | PDOC ---
History of Present Illness - General Chief Complaint: Chest Pain Stated Complaint: CHEST DISCOMFORT Time Seen by Provider: 02/09/20 18:44 History Source: Patient Exam Limitations: No Limitations - History of Present Illness Initial Comments: 02/09/20 20:17 80F PMH HTN, HLD, CAD s/p CABG, DM, GERD c/o 3 days of 5/10 substernal chest tightness w/o radiating. Symptoms consistent throughout the day with slight improvement towards the end; more persistent today. Denies diaphoresis, sob, headaches, vision/hearing changes. Denies n/v/d/dysuria. Has chronic LLE edema after venous harvest for CABG; unchanged, no calf pain. Past History - Medical History Allergies/Adverse Reactions: Allergies Allergy/AdvReac Type Severity Reaction Status Date / Time No Known Allergies Allergy Verified 11/03/19 16:57 Home Medications: Ambulatory Orders Insulin Sliding Scale [Novolog Vial Sliding Scale -] 0 units SQ ACHS 7 Days pen 05/24/14 Isosorbide Mononitrate [Imdur -] 120 mg PO DAILY 05/18/15 Metoprolol Succinate [Toprol XL -] 50 mg PO DAILY 03/01/16 Aspirin [ASA -] 81 mg PO BID 05/06/17 Amlodipine Besylate 5 mg PO DAILY 11/03/19 Furosemide 1 tab PO AM 11/03/19 Glipizide [Glucotrol -] 5 mg PO BIDAC 11/03/19 Insulin Detemir [Levemir Flextouch] 100 unit SQ HS 11/03/19 Anemia: No Asthma: No Cardiac Disorders: Yes (CORONARY ARTERIOSCLEROSIS) CVA: No COPD: No CHF: No Dementia: No Diabetes: No GI Disorders: Yes (gerd, hiatal hernia,rectal hemorrhage,gastritis) Disorders: No HTN: Yes Hypercholesterolemia: Yes Liver Disease: No Seizures: No Thyroid Disease: No - Surgical History Abdominal Surgery: Yes Appendectomy: No Cardiac Surgery: Yes (triple bypass,cardiac stents) Cholecystectomy: No Lung Surgery: No Neurologic Surgery: No Orthopedic Surgery: No - Immunization History Immunization Up to Date: Yes - Psycho-Social/Smoking History Smoking Status: No Smoking History: Never smoked Have you smoked in the past 12 months: No Number of Cigarettes Smoked Daily: 0 If you are a former smoker, when did you quit?: Over 30 years ago - Substance Abuse Hx (Audit-C & DAST Scrn) How often the patient has a drink containing alcohol: Never Score: In Men: 4 or > Positive; In Women: 3 or > Positive: 0 Screen Result (Pos requires Nsg. Audit-10AR): Negative In the last yr the pt used illegal drug/Rx for NonMed reason: No Score: Yes response is considered Positive: 0 Screen Result (Positive result requires Nsg. DAST-10): Negative Review of Systems - Review of Systems Comments:: 02/10/20 07:55 CONSTITUTIONAL: Denies F / C HEENT: Denies headache, lightheadedness, dizziness, changes in vision / hearing, , sore throat, rhinorrhea RESP: Denies SOB, cough CARD: +chest tightness. Denies chest pain, palpitations GI: Denies N / V / D, abdominal pain, inability to tolerate PO : Denies dysuria, hematuria, frequency NEURO: Denies numbness, tingling, weakness MSK: Denies back pain SKIN: Denies rashes *Physical Exam - Vital Signs Last Vital Signs Temp Pulse Resp BP Pulse Ox 97.8 F 74 18 186/78 H 100 02/09/20 18:43 02/09/20 18:43 02/09/20 18:43 02/09/20 18:43 02/09/20 18:43 - Physical Exam 02/10/20 07:55 GEN: Well appearing, NAD, comfortable. AAOx3. HEENT: NC/AT, EOMI, PERRL. Normal voice. Supple neck w/ FROM. CV: S1/S2, RRR, no m/r/g LUNG: CTAB, no wheezes, crackles, rales, rhonchi. GI: Soft, ndnt, +BS, no guarding, no rebound. MSK: 1+ pitting edema of the LLE (patient states chronic and unchanged); no calf or popliteal TTP. No obvious deformities of all extremities. SKIN: Warm, dry, no rashes appreciated. PSYCH: Normal mood and affect. NEURO: Moving all extremities well. Ambulatory ED Treatment Course - LABORATORY CBC & Chemistry Diagram: 02/09/20 20:00 02/09/20 20:00 - RADIOLOGY Radiology Studies Ordered: Category Date Time Status CXRPORT [CHEST X-RAY PORTABLE*] [RAD] Stat Radiology 02/09/20 20:16 Ordered Medical Decision Making - Medical Decision Making 02/10/20 07:55 80F PMH HTN, HLD, CAD s/p CABG, DM, GERD w/ 3 days of chest tightness. ACS w/u given cardiac hx and dm; obs tele EKG 18:36 HR 65 SD 218 QTc 443 axis wnl, sinus w/ 1st degree AV block; no SHANNA/D, TWI or flattened V2, V3; unchanged compared to prior EKG 11/03/19 02/09/20 22:11 XR reviewed 02/09/20 23:08 labs reviewed admit 02/10/20 07:54 patient was earlier endorsed to the hospitalist team for admission. Discharge - Discharge Information Problems reviewed: Yes Clinical Impression/Diagnosis: Chest pain Condition: Fair - Admission Yes - Follow up/Referral - Patient Discharge Instructions - Post Discharge Activity
[2020-02-09] MEDS ORDERED: ASPIRIN 81 MG CHEWABLE TABLETS PO ONE (20:56)
[2020-02-09] MEDS ORDERED: PANTOPRAZOLE SODIUM 40 MG VIAL IVPUSH ONE (20:56)
--- NOTE | 2020-02-09 20:59 | PDOC ---
Documentation entered by Mya Barrera SCRIBE, acting as scribe for Zahida Covarrubias MD. Zahida Covarrubias MD: This documentation has been prepared by the Holly oliva Brenda, SCRIBE, under my direction and personally reviewed by me in its entirety. I confirm that the documentation accurately reflects all work, treatment, procedures, and medical decision making performed by me. Attending Attestation - Resident Resident Name: MoisesGee - ED Attending Attestation I have performed the following: I have examined & evaluated the patient, The case was reviewed & discussed with the resident, I agree w/resident's findings & plan, Exceptions are as noted - HPI HPI: 02/09/20 20:12 The patient is a 80 year old female with a significant PMH of who presents to the emergency department with chest tightness and chest pain she describes as 5/10 . She has a history of GERD but this does not feel like her GERD . The patient denies chest pain, shortness of breath, headache and dizziness. Denies fever, chills, nausea, vomiting, diarrhea and constipation. Denies dysuria, frequency, urgency and hematuria. Allergies: NKA Past surgical history: Social history: No reported hx of tobacco use, alcohol use or illicit drug use. PCP: Sarbjit 02/09/20 20:54 - Physicial Exam PE: 02/09/20 20:12 GENERAL: Well-appearing, well-nourished. No apparent distress. HEENT: Normocephalic, atraumatic. PERRL, EOM intact. CARDIOVASCULAR: Normal S1, S2. Regular rate and rhythm. PULMONARY: Clear to auscultation bilaterally. ABDOMEN: Soft, non-distended, non-tender. EXTREMITIES: Normal ROM in all four extremities. There is chronic left lower leg swelling SKIN: Warm, dry. No rash NEUROLOGICAL: No focal neurological deficits. 02/09/20 21:17 - Medical Decision Making 02/09/20 21:00 80 yo female with extensive cardiac history p/w midsternal chest tightness . PMH CAD s/p CABG,s/o PCI,HTN,HLD,DM,GERD 02/09/20 21:04 ekg done today is unchanged from prior ekg, no evidence for ischemia social : no tobacco Imp : ACS, GERD plan aspirin,troponin,cxr,chemistries ,telemetry admission Discharge - Discharge Information Problems reviewed: Yes Clinical Impression/Diagnosis: Chest pain - Follow up/Referral Referrals: Mavis Schaffer MD [Primary Care Provider] - - Patient Discharge Instructions - Post Discharge Activity
[2020-02-09 21:08] LABS: BASO % 1.2 % (0-2.0); EOS % 1.8 % (0-4.5); HEMATOCRIT 39.3 % (32.4-45.2); HEMOGLOBIN 13.8 GM/dL (10.7-15.3); LYMPH % 30.2 % (8-40); MCH 30.2 pg (25.7-33.7); MCHC 35.2 g/dl (32.0-36.0); MEAN PLT VOLUME 7.7 fl (7.5-11.1); MONO % 6.2 % (3.8-10.2); NEUT % 60.6 % (42.8-82.8); PLATELET COUNT 247 K/MM3 (134-434); RBC 4.58 M/mm3 (3.60-5.2); RDW 13.7 % (11.6-15.6); WHITE BLOOD COUNT 8.6 K/mm3 (4.0-10.0)
[2020-02-09 21:13] LABS: INR 1.09 (0.83-1.09); PROTHROMBIN TIME (PATIENT) 12.9 SEC (9.7-13.0)
[2020-02-09] MEDS ORDERED: ASPIRIN 81 MG CHEWABLE TABLETS ONE (21:24)
[2020-02-09] MEDS ORDERED: PANTOPRAZOLE SODIUM 40 MG VIAL ONE (21:25)
[2020-02-09 22:55] LABS: ALBUMIN 3.7 g/dl (3.4-5.0); BILIRUBIN,TOTAL 0.6 mg/dL (0.2-1); BLOOD UREA NITROGEN 8.2 mg/dL (7-18); CALCIUM 10.2 mg/dL (8.5-10.1); CREATININE 0.9 mg/dL (0.55-1.3); MAGNESIUM 1.7 mg/dL (1.8-2.4); POTASSIUM 3.8 mmol/L (3.5-5.1); TOT PROT 7.3 g/dl (6.4-8.2)
--- OUTSIDE RECORDS SUMMARY | 2020-02-10 01:11 | XMS ---
:1940 Author Organization [facility] Support Name Relationship Address Phone RE Unavailable Unavailable Unavailable RE Unavailable Unavailable Unavailable MISHEL SON [address] [place] [address] MISHEL Child [address] [place] [address] Re-disclosure Warning The records that you are about to access may contain information from federally- assisted alcohol or drug abuse programs. If such information is present, then the following federally mandated warning applies: This information has been disclosed to you from records protected by federal confidentiality rules (42 CFR part 2). The federal rules prohibit you from making any further disclosure of this information unless further disclosure is expressly permitted by the written consent of the person to whom it pertains or as otherwise permitted by 42 CFR part 2. A general authorization for the release of medical or other information is NOT sufficient for this purpose. The Federal rules restrict any use of the information to criminally investigate or prosecute any alcohol or drug abuse patient.The records that you are about to access may contain highly sensitive health information, the redisclosure of which is protected by Article 27-F of the [facility] Public Health law. If you continue you may haveaccess to information: Regarding HIV / AIDS; Provided by facilities licensed or operated by the [facility] Office of Mental Health; or Provided by the [facility] Office for People With Developmental Disabilities. If such information is present, then the following [facility] mandated warning applies: This information has been disclosed to you from confidential records which are protected by state law. State law prohibits you from making any further disclosure of this information without the specific written consent of the person to whom it pertains, or as otherwise permitted by law. Any unauthorized further disclosure in violation of state law may result in a fine or retirement sentence or both. A general authorization for the release of medical or other information is NOT sufficient authorization for further disclosure. 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 [id number] SP [id number] [place] MEDICARE [id number] SP [id number] Medicare-Blue [id number] S [id number] Cross/Blue Shield Medicare [id number] S [id number] A [facility] [id number] S [id number] [employer] MCRE MNGD Care [facility] [id number] S [id number] Options [employer] Manage Care [place] [id number] S [id number] Medicare Manage Care Problems, Conditions, and Diagnoses Code Display Name Description Problem Type Effective Dates Data Source(s) R69 Illness, Illness, Diagnosis 07/23/2018 [place] (Moun t unspecified unspecified 06:21:14 PM [facility]) Results ID Date Data Source [id number] 11/03/2019 04:27:00 PM EDT [facility] Name Value Range Interpretation Description Data Sup porting Code Source(s) Document(s ) SARS [facility] CORONAVIRUS 2 RNA This lab was ordered by [facility] and reported by [facility]. Procedure
[2020-02-10] MEDS ORDERED: ACETAMINOPHEN 325 MG TABLET (FP) PO PRN (01:54)
[2020-02-10] MEDS ORDERED: MAGNESIUM SULF 50% (8.12 MEQ/2 ML-1 GM VIAL) IVPB ONE (02:30)
--- NOTE | 2020-02-10 04:15 | PN ---
Teaching Attending Note Name of Resident: April Burnett ATTENDING PHYSICIAN STATEMENT I saw and evaluated the patient. I reviewed the resident's note and discussed the case with the resident. I agree with the resident's findings and plan as documented. SUBJECTIVE: 80yoF with history of CAD s/p CABG 2005, HTN, HLD, T2DM, and GERD who presents with 3 days of exertional chest pressure. Patient reports central chest pressure with exertion that radiates to below the left axilla. It does not feel like the chest pain she had with her prior PR. Pressure improved after a period of rest and she does not take nitro. Denies cough, palpitations, diaphoresis, SOB, fever. ED work up unremarkable including negative troponin and EKG showing sinus rhtyhm without acute ST or T wave changes. CXR was unremarkable. Patient received aspirin 162mg and at time of evaluation she is asymptomatic with no acute complaints. ROS in addition to above (+) nocturia, chronic LLE swelling, LLE pain OBJECTIVE: Last Vital Signs Temp Pulse Resp BP Pulse Ox 97.5 F L 83 18 164/77 94 L 02/10/20 01:13 02/10/20 01:13 02/10/20 01:13 02/10/20 01:13 02/10/20 01:13 EXAM Gen: awake, alert, NAD HEENT: NC/AT CV: RRR, no MRG appreciated Resp: CTAB, unlabored Abd: Soft, NT, ND, +bowel sounds Ext: 1+ nonpitting LLE edema, mild tenderness over calf Neuro: CN II-XII grossly intact Psych: AOx3, appropriate mood/affect Laboratory Results - last 24 hr 02/09/20 02/09/20 02/09/20 20:00 20:00 20:00 WBC 8.6 RBC 4.58 Hgb 13.8 Hct 39.3 MCV 86.0 MCH 30.2 MCHC 35.2 RDW 13.7 Plt Count 247 MPV 7.7 Absolute Neuts (auto) 5.2 Neutrophils % 60.6 Lymphocytes % 30.2 D Monocytes % 6.2 Eosinophils % 1.8 D Basophils % 1.2 Nucleated RBC % 0 PT with INR 12.90 INR 1.09 Sodium 142 Potassium 3.8 Chloride 109 H Carbon Dioxide 26 Anion Gap 7 L BUN 8.2 Creatinine 0.9 Est GFR (CKD-EPI)AfAm 70.98 Est GFR (CKD-EPI)NonAf 61.24 Random Glucose 151 H Calcium 10.2 H Magnesium 1.7 L Total Bilirubin 0.6 AST 20 ALT 19 Alkaline Phosphatase 133 H Creatine Kinase 123 Troponin I 0.03 Total Protein 7.3 Albumin 3.7 ASSESSMENT AND PLAN: 80yoF with history of CAD s/p CABG 2005, HTN, HLD, T2DM, and GERD who presents with 3 days of exertional chest pressure consistent with stable angina. Exertional chest pressure Characteristics are consistent with stable angina Initial troponin negative and no acute EKG changes Received aspirin in ED - serial troponin, EKG - tele - f/u cardiology LLE edema States edema is chronic since CABG but now with some calf tenderness - Doppler LLE Nocturia - check UA T2DM: ISS GERD: continue home med HTN: continue home meds DVT ppx: Lovenox subq
--- NOTE | 2020-02-10 04:43 | HP ---
CHIEF COMPLAINT: Chest pain PCP: Dr. Schaffer HISTORY OF PRESENT ILLNESS: Umu Contreras is a 80 year old woman with PMH CAD s/p triple bypass in 2005, hypertension, diabetes, GERD, arthritis who presents with a three day history of chest tightness that began while she was walking in her home. She reports a tig htening sensation in the center of the chest, with no associated radiation. The tightness was alleviated with rest, and exacerbated by activity. She denies recent trauma, denies increased physical activity. ROS negative for fever, headache, dizziness, syncope, palpitations, nausea, vomiting, abdominal pain, diarrhea, constipation, rash. ER course was notable for: (1) EKG: sinus with first degree AV block -- unchanged from a previous admission in October 2019 (2) Negative chest x ray (3) Troponin negative (4) ASA, protonix PAST MEDICAL HISTORY: CAD s/p triple bypass in 2005 Hypertension Diabetes GERD Arthritis PAST SURGICAL HISTORY: Triple bypass 2005 Hysterectomy -- date unknown Social History: Smoking: Never Alcohol: None Drugs: None Lives by herself in [place] Family History: Negative for hypertension, diabetes Allergies No Known Allergies Allergy (Verified 11/03/19 16:57) HOME MEDICATIONS: Home Medications Medication Instructions Recorded Insulin Sliding Scale [Novolog 0 units SQ ACHS 7 Days pen 05/24/14 Vial Sliding Scale -] Isosorbide Mononitrate [Imdur -] 120 mg PO DAILY 05/18/15 Metoprolol Succinate [Toprol XL -] 50 mg PO DAILY 03/01/16 Aspirin [ASA -] 81 mg PO BID 05/06/17 Amlodipine Besylate 5 mg PO DAILY 11/03/19 Furosemide 1 tab PO AM 11/03/19 Glipizide [Glucotrol -] 5 mg PO BIDAC 11/03/19 Insulin Detemir [Levemir Flextouch] 100 unit SQ HS 11/03/19 REVIEW OF SYSTEMS CONSTITUTIONAL: Absent: fever, chills, diaphoresis, generalized weakness, malaise, loss of appetite, weight change HEENT: Absent: rhinorrhea, nasal congestion, throat pain, throat swelling, CARDIOVASCULAR: Positive: chest tightness, L lower extremity edema (chronic - s/p vein harvesting) Absent: chest pain, syncope, palpitations, irregular heart rate, lightheadedness RESPIRATORY: Absent: cough, shortness of breath, dyspnea with exertion, stridor, hemoptysis GASTROINTESTINAL: Absent: abdominal pain, abdominal distension, nausea, vomiting, diarrhea, constipation, melena, hematochezia GENITOURINARY: Positive: frequency Absent: dysuria, urgency, hesitancy, hematuria, flank pain, genital pain MUSCULOSKELETAL: Absent: myalgia, arthralgia, joint swelling, back pain, neck pain SKIN: Absent: rash, itching, pallor HEMATOLOGIC/IMMUNOLOGIC: Absent: easy bleeding, easy bruising, lymphadenopathy, frequent infections ENDOCRINE: Absent: unexplained weight gain, unexplained weight loss, heat intolerance, cold intolerance NEUROLOGIC: Absent: headache, focal weakness or paresthesias, dizziness, unsteady gait, seizure PHYSICAL EXAMINATION Vital Signs - 24 hr 02/09/20 02/09/20 02/10/20 18:43 23:30 01:13 Temperature 97.8 F 97.5 F L Pulse Rate 74 83 Pulse Rate [ 55 L Left Radial] Respiratory 18 18 18 Rate Blood Pressure 186/78 H 164/77 Blood Pressure 137/72 [Right Arm] O2 Sat by Pulse 100 97 94 L Oximetry (%) GENERAL: Awake, alert, and fully oriented, in no acute distress. HEAD: Normal with no signs of trauma. EYES: PERRL, extraocular movements intact, sclera anicteric, conjunctiva clear. No lid lag. EARS, NOSE, THROAT: Ears normal, nares patent, oropharynx clear without exudates. Moist mucous membranes. NECK: Normal range of motion, supple without lymphadenopathy, JVD, or masses. LUNGS: CTAB. No wheezes, and no crackles. No accessory muscle use. HEART: Regular rate and rhythm, normal S1 and S2 without murmur, rub or gallop. Tenderness to palpation overlying breast tissue and overlying the sternum. ABDOMEN: Soft, nontender, not distended, normoactive bowel sounds, no guarding, no rebound, no masses. No hepatomegaly or splenomegaly. MUSCULOSKELETAL: Normal range of motion at all joints. No bony deformities or tenderness. No CVA tenderness. UPPER EXTREMITIES: 2+ pulses, warm, well-perfused. No cyanosis. No clubbing. No peripheral edema. LOWER EXTREMITIES: 2+ pulses, warm, well-perfused. Left calf tenderness and 1+ pitting edema. NEUROLOGICAL: Cranial nerves II-XII intact. Normal speech. Normal gait. PSYCHIATRIC: Cooperative. Good eye contact. Appropriate mood and affect. SKIN: Warm, dry, normal turgor, no rashes or lesions noted, normal capillary refill. Laboratory Results - last 24 hr 02/09/20 02/09/20 02/09/20 20:00 20:00 20:00 WBC 8.6 RBC 4.58 Hgb 13.8 Hct 39.3 MCV 86.0 MCH 30.2 MCHC 35.2 RDW 13.7 Plt Count 247 MPV 7.7 Absolute Neuts (auto) 5.2 Neutrophils % 60.6 Lymphocytes % 30.2 D Monocytes % 6.2 Eosinophils % 1.8 D Basophils % 1.2 Nucleated RBC % 0 PT with INR 12.90 INR 1.09 Sodium 142 Potassium 3.8 Chloride 109 H Carbon Dioxide 26 Anion Gap 7 L BUN 8.2 Creatinine 0.9 Est GFR (CKD-EPI)AfAm 70.98 Est GFR (CKD-EPI)NonAf 61.24 Random Glucose 151 H Calcium 10.2 H Magnesium 1.7 L Total Bilirubin 0.6 AST 20 ALT 19 Alkaline Phosphatase 133 H Creatine Kinase 123 Troponin I 0.03 Total Protein 7.3 Albumin 3.7 ASSESSMENT/PLAN: Umu Contreras is a 80 year old woman with PMH CAD s/p triple bypass in 2005, hypertension, diabetes, GERD arthritis, who presents with a 3 day history of chest tightness worsened by exertion. #Chest Pain - Likely musculoskeleta vs. less likely ACS vs. less likely GERD - Troponin on admission negative - Trend troponin - Awaiting result of lipid panel #Left lower extremity edema - R/o DVT - U/S ordered, awaiting results - Chronically swollen L leg since vein harvesting #Frequent urination - Urinalysis has been ordered - Suspect UTI #Hypomagnesemia - Magnesium 1.7 - 1g magnesium given - Review morning labs # Hypercalcemia - Likely related to dehydration - Encourage oral hydration - Has been elevated in prior admissions - Repeat labs in am #Insulin dependent diabetes mellitus - F/u HbA1C - BGM ACHS - Continue sliding scale during admission DVT prophylaxis: SCDs FEN: PO fluids Monitor magnesium Diabetic/sodium diet Dispo: Tele/Obs FULL CODE Family Medical History Family History: As Documented Visit type - Medication Review Med list reviewed for High Risk Meds patients 65 and older: Yes - Emergency Visit Emergency Visit: Yes ED Registration Date: 02/10/20 Care time: The patient presented to the Emergency Department on the above date and was hospitalized for further evaluation of their emergent condition. - New Patient This patient is new to me today: Yes Date on this admission: 02/10/20 - Critical Care Critical Care patient: No ATTENDING PHYSICIAN STATEMENT I saw and evaluated the patient. I reviewed the resident's note and discussed the case with the resident. I agree with the resident's findings and plan as documented. SUBJECTIVE: OBJECTIVE: ASSESSMENT AND PLAN:
[2020-02-10] MEDS: INSULIN SLIDING SCALE (NOVOLOG) 1 VIAL SQ SCH ×4 (07:05→22:04)
[2020-02-10] MEDS: PANTOPRAZOLE 40 MG TABLET PO SCH (07:17)
[2020-02-10 07:50] LABS: BASO % 0.8 % (0-2.0); EOS % 2.9 % (0-4.5); HEMATOCRIT 38.2 % (32.4-45.2); HEMOGLOBIN 13.6 GM/dL (10.7-15.3); LYMPH % 33.5 % (8-40); MCH 30.4 pg (25.7-33.7); MCHC 35.7 g/dl (32.0-36.0); MEAN CELL VOLUME 85.2 fl (80-96); MEAN PLT VOLUME 7.5 fl (7.5-11.1); NEUT % 56.8 % (42.8-82.8); PLATELET COUNT 227 K/MM3 (134-434); RBC 4.48 M/mm3 (3.60-5.2); RDW 13.9 % (11.6-15.6); WHITE BLOOD COUNT 7.7 K/mm3 (4.0-10.0)
[2020-02-10 08:28] LABS: ALBUMIN 3.3 g/dl (3.4-5.0); BILIRUBIN,TOTAL 0.7 mg/dL (0.2-1); BLOOD UREA NITROGEN 4.4 mg/dL (7-18); CREATININE 0.8 mg/dL (0.55-1.3); MAGNESIUM 1.9 mg/dL (1.8-2.4); POTASSIUM 4.1 mmol/L (3.5-5.1); TOT PROT 6.8 g/dl (6.4-8.2)
--- NOTE | 2020-02-10 09:39 | EKG ---
Test Reason : Blood Pressure : / mmHG Vent. Rate : 065 BPM Atrial Rate : 065 BPM P-R Int : 218 ms QRS Dur : 086 ms QT Int : 426 ms P-R-T Axes : 054 034 056 degrees QTc Int : 443 ms SINUS RHYTHM WITH 1ST DEGREE A-V BLOCK POSSIBLE LEFT ATRIAL ENLARGEMENT NONSPECIFIC T WAVE ABNORMALITY ABNORMAL ECG WHEN COMPARED WITH ECG OF 03-NOV-2019 15:22, NO SIGNIFICANT CHANGE WAS FOUND Confirmed by Jj Eaton ([id number]) on 02/10/2020 9:39:06 AM Referred By: Confirmed By:Jj Eaton
[2020-02-10] MEDS: LOSARTAN POTASSIUM 50 MG TABLET (FP) PO SCH (18:44)
[2020-02-10] MEDS: ASPIRIN 81 MG CHEWABLE TABLETS PO SCH (18:44)
[2020-02-10 19:26] LABS: EPI CELLS 13 /uL (0-25.1); HYALINE CASTS 0 /uL (0-3.1); PH,URINE 6.5 (5.0-8.0); URINE APPEARANCE CLEAR; URINE BACTERIA 321 /uL (0-1359); URINE BILIRUBIN NEGATIVE (NEGATIVE); URINE COLOR YELLOW; URINE GLUCOSE (UA) NEGATIVE (NEGATIVE); URINE KETONE NEGATIVE (NEGATIVE); URINE LEUK ESTERASE TRACE (NEGATIVE); URINE NITRITE NEGATIVE (NEGATIVE); URINE PROTEIN NEGATIVE (NEGATIVE); URINE RBC 3 /uL (0-23.9); URINE UROBILINOGEN 0.2 mg/dL (0.2-1.0); URINE WBC 14 /uL (0-25.8)
--- NOTE | 2020-02-10 20:59 | HP ---
Admitting History and Physical - Past Medical History Cardiovascular: Yes: CAD, HTN, Hyperlipdemia Pulmonary: Yes: Asthma Gastrointestinal: Yes: Gastritis, GERD ...: No ENT: Yes: Other (vertigo) Endocrine: Yes: Diabetes Mellitus - Past Surgical History Past Surgical History: Yes: CABG, Stent - Smoking History Smoking history: Never smoked Have you smoked in the past 12 months: No Aproximately how many cigarettes per day: 0 If you are a former smoker, when did you quit?: Over 30 years ago - Alcohol/Substance Use Hx Alcohol Use: No History of Substance Use: reports: None - Social History ADL: Independent History of Recent Travel: No Home Medications - Allergies Allergies/Adverse Reactions: Allergies Allergy/AdvReac Type Severity Reaction Status Date / Time No Known Allergies Allergy Verified 11/03/19 16:57 - Home Medications Home Medications: Ambulatory Orders Insulin Sliding Scale [Novolog Vial Sliding Scale -] 0 units SQ ACHS 7 Days pen 05/24/14 Isosorbide Mononitrate [Imdur -] 120 mg PO DAILY 05/18/15 Metoprolol Succinate [Toprol XL -] 50 mg PO DAILY 03/01/16 Aspirin [ASA -] 81 mg PO DAILY 05/06/17 Amlodipine Besylate 5 mg PO DAILY 11/03/19 Furosemide 1 tab PO DAILY 11/03/19 Glipizide [Glucotrol -] 5 mg PO BIDAC 11/03/19 Insulin Detemir [Levemir Flextouch] 100 unit SQ HS 11/03/19 Irbesartan 300 mg PO DAILY 02/10/20 Pravastatin Sodium [Pravachol (Nf)] 40 mg PO HS 02/10/20 Physical Examination Vital Signs: Vital Signs Temperature 97.9 F 02/10/20 18:00 Pulse Rate 54 L 02/10/20 18:00 Respiratory Rate 18 02/10/20 18:00 Blood Pressure 140/66 02/10/20 18:00 O2 Sat by Pulse Oximetry (%) 97 02/10/20 09:56 Labs: CBC, BMP 02/10/20 06:30 02/10/20 06:30
--- NOTE | 2020-02-10 21:51 | CON.CARD ---
Consult Consult Specialty:: cardiology Reason for Consultation:: chest pain; hx CABG - History of Present Illness Chief Complaint: Pt A&Ox3; presently asymptomatic History of Present Illness: Ms. Contreras is a 80 yr old black woman with PMH of HTN, HLD, CAD s/p CABG, DM, GERD, bronchial asthma, now seen in ER c/o 3 days of 510 substernal chest tightness not radiating. Symptoms consistent throughout the day, with slight improvement towards the end; more persistent today. Denies diaphoresis, sob, headaches, vision/hearing changes. Denies n/v/d/dysuria. Has chronic LLE edema after venous harvest for CABG; unchanged, no calf pain. Manager Insurance: Dr. Gila Hernandes - History Source History Provided By: Patient, Medical Record Limitations to Obtaining History: No Limitations - Past Medical History Cardio/Vascular: Yes: CAD, HTN, Hyperlipdemia Pulmonary: Yes: Asthma Gastrointestinal: Yes: Gastritis, GERD ...: No ENT: Yes: Other (vertigo) Endocrine: Yes: Diabetes Mellitus - Past Surgical History Past Surgical History: Yes: CABG, Stent - Alcohol/Substance Use Hx Alcohol Use: No History of Substance Use: reports: None - Smoking History Smoking history: Never smoked Have you smoked in the past 12 months: No Aproximately how many cigarettes per day: 0 If you are a former smoker, when did you quit?: Over 30 years ago - Social History ADL: Independent History of Recent Travel: No Home Medications - Allergies Allergies/Adverse Reactions: Allergies Allergy/AdvReac Type Severity Reaction Status Date / Time No Known Allergies Allergy Verified 11/03/19 16:57 - Home Medications Home Medications: Ambulatory Orders Insulin Sliding Scale [Novolog Vial Sliding Scale -] 0 units SQ ACHS 7 Days pen 05/24/14 Isosorbide Mononitrate [Imdur -] 120 mg PO DAILY 05/18/15 Metoprolol Succinate [Toprol XL -] 50 mg PO DAILY 03/01/16 Aspirin [ASA -] 81 mg PO DAILY 05/06/17 Amlodipine Besylate 5 mg PO DAILY 11/03/19 Furosemide 1 tab PO DAILY 11/03/19 Glipizide [Glucotrol -] 5 mg PO BIDAC 11/03/19 Insulin Detemir [Levemir Flextouch] 100 unit SQ HS 11/03/19 Irbesartan 300 mg PO DAILY 02/10/20 Pravastatin Sodium [Pravachol -] 40 mg PO HS 02/10/20 Plavix 75 mg PO DAILY 02/12/20 Family Medical History Family History: Denies (no cardiac hx in immediate family) Review of Systems - Review of Systems Constitutional: reports: No Symptoms Eyes: reports: No Symptoms HENT: reports: No Symptoms Neck: reports: No Symptoms Cardiovascular: reports: Chest Pain Respiratory: reports: No Symptoms Gastrointestinal: reports: No Symptoms Genitourinary: reports: No Symptoms Breasts: reports: No Symptoms Reported Musculoskeletal: reports: Joint Pain (chronic left ankle swelling and pain after trauma years ago) Integumentary: reports: No Symptoms Neurological: reports: No Symptoms Endocrine: reports: No Symptoms Hematology/Lymphatic: reports: No Symptoms Psychiatric: reports: No Symptoms - Risk Factors Known Risk Factors: Yes: Age, Hypercholesterolemia, Hypertension, Race, Other (CABG) Vital Signs: Vital Signs Temperature 97.9 F 02/10/20 18:00 Pulse Rate 54 L 02/10/20 18:00 Respiratory Rate 18 02/10/20 18:00 Blood Pressure 140/66 02/10/20 18:00 O2 Sat by Pulse Oximetry (%) 97 02/10/20 09:56 Constitutional: Yes: Well Nourished Eyes: Yes: WNL HENT: Yes: WNL Neck: Yes: WNL Respiratory: Yes: WNL Gastrointestinal: Yes: WNL Renal/: No: Anuria Cardiovascular: Yes: Regular Rate and Rhythm JVD: No Carotid Bruit: No PMI: Non-Displaced Heart Sounds: Yes: S1, S2, S4 Murmur: Yes: Systolic Murmur, Grade 1 Musculoskeletal: Yes: WNL Extremities: Yes: WNL Edema: No Peripheral Pulses WNL: Yes Integumentary: Yes: WNL Neurological: Yes: WNL ...Motor Strength: WNL Psychiatric: Yes: WNL - Other Data Labs, Other Data: CBC, BMP 02/10/20 06:30 02/10/20 06:30 INR, PTT INR 1.09 (0.83-1.09) 02/09/20 20:00 Troponin, BNP 02/09/20 02/10/20 20:00 06:30 Troponin I 0.03 0.07 H Troponin, BNP 02/09/20 02/10/20 20:00 06:30 Troponin I 0.03 0.07 H Echo: Image Reviewed Imaging - Results Chest X-ray: Image Reviewed Assessment/Plan Chest pain s/p CABG chronic mild TNI elevation since at least 2011 DM HTN HDL obesity Rec: Serial TNIs and EKGs.] Records from Dr. Hernandes (had visit with her 12/2019) Lipids; TSH; HGBA1c. Weight loss: nutrition f/u (pt wants to lose 20 lbs). ECHO: normal LVEF 2018
[2020-02-10] MEDS: ATORVASTATIN CA 10 MG TABLET (FP) PO SCH (22:02)
[2020-02-10] MEDS ORDERED: amLODIPine BESYLATE 5 MG TABLET (FP) PO ONE ×2 (23:05→23:30)
[2020-02-10] MEDS ORDERED: SPIRONOLACTONE 25 MG TABLET PO ONE (23:05)
[2020-02-11] MEDS: INSULIN SLIDING SCALE (NOVOLOG) 1 VIAL SQ SCH ×4 (06:16→22:07)
[2020-02-11] MEDS: PANTOPRAZOLE 40 MG TABLET PO SCH (06:16)
--- NOTE | 2020-02-11 09:47 | PN ---
Progress Note, Physician - Current Medication List Current Medications: Active Medications Acetaminophen (Tylenol -) 650 mg PO Q4H PRN PRN Reason: PAIN LEVEL 1-5 Aspirin (Asa -) [address] [facility] Last Admin: 02/10/20 18:44 Dose: 81 mg Documented by: Atorvastatin Calcium (Lipitor -) [address] [facility] Last Admin: 02/10/20 22:02 Dose: 10 mg Documented by: Furosemide (Lasix -) [address] [facility] Hydrochlorothiazide (Hctz -) [address] [facility] Insulin Aspart (Novolog Vial Sliding Scale -) [address] [facility]; Protocol Last Admin: 02/11/20 06:16 Dose: 2 units Documented by: Isosorbide Mononitrate (Imdur -) [address] [facility] Losartan Potassium (Cozaar -) [address] [facility] Last Admin: 02/10/20 18:44 Dose: 100 mg Documented by: Metoprolol Succinate (Toprol Xl -) [address] [facility] Last Admin: 02/10/20 18:44 Dose: 50 mg Documented by: Pantoprazole Sodium (Protonix -) [address] [facility] Last Admin: 02/11/20 06:16 Dose: 40 mg Documented by: - Objective Vital Signs: Vital Signs Temperature 98.1 F 02/11/20 09:40 Pulse Rate 51 L 02/11/20 09:40 Respiratory Rate 22 H 02/11/20 09:40 Blood Pressure 155/66 02/11/20 09:40 O2 Sat by Pulse Oximetry (%) 95 02/11/20 09:40 Eyes: Yes: WNL, Conjunctiva Clear, EOM Intact HENT: Yes: WNL, Atraumatic, Normocephalic Neck: Yes: WNL, Supple, Trachea Midline Cardiovascular: Yes: WNL, Regular Rate and Rhythm Respiratory: Yes: WNL, Regular, CTA Bilaterally Gastrointestinal: Yes: WNL, Normal Bowel Sounds Genitourinary: Yes: WNL Musculoskeletal: Yes: WNL Extremities: Yes: WNL Edema: No Integumentary: Yes: WNL Neurological: Yes: WNL, Alert, Oriented ...Motor Strength: WNL Psychiatric: Yes: WNL Labs: CBC, BMP 02/10/20 06:30 02/10/20 06:30 INR, PTT INR 1.09 (0.83-1.09) 02/09/20 20:00 Assessment/Plan Chest pain s/p CABG chronic mild TNI elevation since at least 2011 DM HTN HDL obesity Plan; telemetry serial CE EKGs ASA BB MIBI ST unless done recently as the outpatient
[2020-02-11] MEDS: ISOSORBIDE MONONITRATE 60 MG TAB.SR.24H (FP) PO SCH (10:06)
[2020-02-11] MEDS: HYDROCHLOROTHIAZIDE 25 MG TABLET (FP) PO SCH (10:09)
[2020-02-11] MEDS: ASPIRIN 81 MG CHEWABLE TABLETS PO SCH (10:09)
[2020-02-11] MEDS: FUROSEMIDE 20 MG TABLET (FP) PO SCH (10:10)
[2020-02-11] MEDS: LOSARTAN POTASSIUM 50 MG TABLET (FP) PO SCH (10:10)
--- NOTE | 2020-02-11 15:14 | PN ---
Progress Note, Physician History of Present Illness: stable - Current Medication List Current Medications: Active Medications Acetaminophen (Tylenol -) 650 mg PO Q4H PRN PRN Reason: PAIN LEVEL 1-5 Aspirin (Asa -) 81 mg PO DAILY [facility] Last Admin: 02/11/20 10:09 Dose: 81 mg Documented by: Atorvastatin Calcium (Lipitor -) 10 mg PO HS [facility] Last Admin: 02/10/20 22:02 Dose: 10 mg Documented by: Furosemide (Lasix -) 20 mg PO DAILY [facility] Last Admin: 02/11/20 10:10 Dose: 20 mg Documented by: Hydrochlorothiazide (Hctz -) 25 mg PO DAILY [facility] Last Admin: 02/11/20 10:09 Dose: 25 mg Documented by: Insulin Aspart (Novolog Vial Sliding Scale -) 1 vial SQ [facility]; Protocol Last Admin: 02/11/20 13:02 Dose: 4 units Documented by: Isosorbide Mononitrate (Imdur -) 120 mg PO DAILY [facility] Last Admin: 02/11/20 10:06 Dose: 120 mg Documented by: Losartan Potassium (Cozaar -) 100 mg PO DAILY [facility] Last Admin: 02/11/20 10:10 Dose: 100 mg Documented by: Metoprolol Succinate (Toprol Xl -) 50 mg PO DAILY [facility] Last Admin: 02/11/20 10:09 Dose: 50 mg Documented by: Pantoprazole Sodium (Protonix -) 40 mg PO ACBK [facility] Last Admin: 02/11/20 06:16 Dose: 40 mg Documented by: - Objective Vital Signs: Vital Signs Temperature 98.2 F 02/11/20 14:10 Pulse Rate 51 L 02/11/20 14:10 Respiratory Rate 02/11/20 14:10 Blood Pressure 133/64 02/11/20 14:10 O2 Sat by Pulse Oximetry (%) 95 02/11/20 09:40 Constitutional: Yes: No Distress HENT: Yes: Atraumatic Neck: Yes: Supple Cardiovascular: Yes: Regular Rate and Rhythm Respiratory: Yes: CTA Bilaterally Gastrointestinal: Yes: Normal Bowel Sounds Extremities: Yes: WNL Neurological: Yes: Alert, Oriented Labs: CBC, BMP 02/10/20 06:30 02/10/20 06:30 INR, PTT INR 1.09 (0.83-1.09) 02/09/20 20:00 Problem List - Problems (1) Chest pain Assessment/Plan: tele mnitoring serial ekg and CE Code(s): R07.9 - CHEST PAIN, UNSPECIFIED Qualifiers: (2) Arthritic-like pain Code(s): M25.50 - PAIN IN UNSPECIFIED JOINT Qualifiers: Joint pain location: unspecified joint Qualified Code(s): M25.50 - Pain in unspecified joint (3) CAD (coronary artery disease) Code(s): I25.10 - ATHSCL HEART DISEASE OF [place] CORONARY ARTERY W/O ANG PCTRS Qualifiers: Coronary Disease-Associated Artery/Lesion type: [place] artery [place] vs. transplanted heart: [place] heart Associated angina: with stable angina Qualified Code(s): I25.118 - Atherosclerotic heart disease of [place] coronary artery with other forms of angina pectoris (4) Diabetes Assessment/Plan: insulin/bgms Code(s): E11.9 - TYPE 2 DIABETES MELLITUS WITHOUT COMPLICATIONS (5) HLD (hyperlipidemia) Assessment/Plan: on meds Code(s): E78.5 - HYPERLIPIDEMIA, UNSPECIFIED Qualifiers: (6) HTN (hypertension) Assessment/Plan: on meds monitr Code(s): I10 - ESSENTIAL (PRIMARY) HYPERTENSION Qualifiers: (7) S/P CABG (coronary artery bypass graft) Code(s): Z95.1 - PRESENCE OF AORTOCORONARY BYPASS GRAFT
[2020-02-11] MEDS: ATORVASTATIN CA 10 MG TABLET (FP) PO SCH ×2 (22:06→22:14)
[2020-02-12] MEDS: INSULIN SLIDING SCALE (NOVOLOG) 1 VIAL SQ SCH (06:16)
[2020-02-12] MEDS: PANTOPRAZOLE 40 MG TABLET PO SCH (06:17)
[2020-02-12 09:00] VITALS: BP 156/77; PULSE 62; TEMP 98
[2020-02-12] MEDS: HYDROCHLOROTHIAZIDE 25 MG TABLET (FP) PO SCH ×2 (09:09→09:16)
[2020-02-12] MEDS: ASPIRIN 81 MG CHEWABLE TABLETS PO SCH (09:09)
[2020-02-12] MEDS: LOSARTAN POTASSIUM 50 MG TABLET (FP) PO SCH (09:09)
[2020-02-12] MEDS: ISOSORBIDE MONONITRATE 60 MG TAB.SR.24H (FP) PO SCH (09:10)
[2020-02-12] MEDS: FUROSEMIDE 20 MG TABLET (FP) PO SCH (09:10)
[2020-02-12] MEDS ORDERED: CLOPIDOGREL BISULFATE 75 MG TABLET (FP) PO SCH (10:00)
--- NOTE | 2020-02-13 16:01 | DS ---
Physical Examination Vital Signs: Vital Signs Temperature 98 F 02/12/20 09:00 Pulse Rate 62 02/12/20 09:00 Respiratory Rate 18 02/12/20 09:00 Blood Pressure 156/77 02/12/20 09:00 O2 Sat by Pulse Oximetry (%) 95 02/12/20 09:00 Constitutional: Yes: No Distress Neck: Yes: Supple Cardiovascular: Yes: Regular Rate and Rhythm Respiratory: Yes: CTA Bilaterally Gastrointestinal: Yes: Normal Bowel Sounds Extremities: Yes: WNL Edema: No Neurological: Yes: Alert, Oriented Labs: CBC, BMP 02/10/20 06:30 02/10/20 06:30 Discharge Summary Problems reviewed: Yes Reason For Visit: SENSATION OF CHEST TIGHTNESS Condition: Fair - Instructions Diet, Activity, Other Instructions: see gi for acid reflux Referrals: Mavis Schaffer MD [Primary Care Provider] - Samuel Moctezuma MD [Staff Physician] - Disposition: VNS/HOME HEALTH CARE - Home Medications Comprehensive Discharge Medication List: Ambulatory Orders Insulin Sliding Scale [Novolog Vial Sliding Scale -] 0 units SQ ACHS 7 Days pen 05/24/14 Isosorbide Mononitrate [Imdur -] 120 mg PO DAILY 05/18/15 Metoprolol Succinate [Toprol XL -] 50 mg PO DAILY 03/01/16 Aspirin [ASA -] 81 mg PO DAILY 05/06/17 Amlodipine Besylate 5 mg PO DAILY 11/03/19 Furosemide 1 tab PO DAILY 11/03/19 Glipizide [Glucotrol -] 5 mg PO BIDAC 11/03/19 Insulin Detemir [Levemir Flextouch] 100 unit SQ HS 11/03/19 Irbesartan 300 mg PO DAILY 02/10/20 Pravastatin Sodium [Pravachol -] 40 mg PO HS 02/10/20 Plavix 75 mg PO DAILY 02/12/20 de home
== END 2020-02-12 10:15 | disposition home health service (06) ==
LOC: JER 18:24 → INTOOBSV 20:59 → JERBED 20:59 → UNDOADMOB 20:59 → J4W 02-10 01:08 → JERBED 02-10 01:08 → J4W 02-10 01:54
PROVIDERS: ADMIT Hospitalist; ATTEND Internal Medicine
PROC: 3E023GC Introduction of Other Therapeutic Substance into Muscle, Percutaneous Approach (ICD-10-PCS; principal; 2020-02-10)
PROC: 3E033GC Introduction of Other Therapeutic Substance into Peripheral Vein, Percutaneous Approach (ICD-10-PCS; 2020-02-10)
DX: I25.118 Atherosclerotic heart disease of native coronary artery with other forms of angina pectoris (principal); I10 Essential (primary) hypertension; E78.5 Hyperlipidemia, unspecified; J45.909 Unspecified asthma, uncomplicated; E11.9 Type 2 diabetes mellitus without complications; Z95.1 Presence of aortocoronary bypass graft; R42 Dizziness and giddiness; K29.70 Gastritis, unspecified, without bleeding; Z79.4 Long term (current) use of insulin; M25.572 Pain in left ankle and joints of left foot; Z87.891 Personal history of nicotine dependence; R01.1 Cardiac murmur, unspecified
CPT/HCPCS: 36415; 71045-TC-FY; 80053; 80061; 81003; 82550; 82962; 83721; 83735; 84484; 85025; 85610; 87086; 93005; 93010; 93971-TC; 96374; 96375; 99285-25; G0378; U0003

== ENCOUNTER 2022-04-11 14:43 | Observation (INO) | payer MEDICARE ==
[2022-04-11 15:34] VITALS: BMI 26.0
[2022-04-11 18:50] LABS: BASO % 0.8 % (0-2.0); EOS % 0.7 % (0-4.5); HEMATOCRIT 39.7 % (32.4-45.2); HEMOGLOBIN 13.7 GM/dL (10.7-15.3); LYMPH % 31.7 % (8-40); MCH 29.2 pg (25.7-33.7); MCHC 34.6 g/dl (32.0-36.0); MEAN CELL VOLUME 84.4 fl (80-96); MEAN PLT VOLUME 7.3 fl (7.5-11.1); MONO % 4.7 % (3.8-10.2); NEUT % 62.1 % (42.8-82.8); PLATELET COUNT 303 10^3/uL (134-434); RDW 13.7 % (11.6-15.6); WHITE BLOOD COUNT 9.7 K/mm3 (4.0-10.0)
[2022-04-11 19:20] LABS: CALCIUM 10.9 mg/dL (8.5-10.1)
[2022-04-11 19:21] LABS: ALBUMIN 3.7 g/dl (3.4-5.0); BLOOD UREA NITROGEN 17.6 mg/dL (7-18)
[2022-04-11 19:24] LABS: CREATININE 0.8 mg/dL (0.55-1.3)
[2022-04-11 19:27] LABS: BILIRUBIN,TOTAL 0.7 mg/dL (0.2-1)
[2022-04-12] MEDS: INSULIN SLIDING SCALE (NOVOLOG) 1 VIAL SQ SCH ×2 (08:29→13:00)
[2022-04-12] MEDS ORDERED: ASPIRIN 81 MG CHEWABLE TABLETS ONE (09:15)
[2022-04-12 09:36] LABS: EOS % 1.5 % (0-4.5); HEMATOCRIT 39.3 % (32.4-45.2); HEMOGLOBIN 13.5 GM/dL (10.7-15.3); LYMPH % 29.2 % (8-40); MCH 29.3 pg (25.7-33.7); MCHC 34.5 g/dl (32.0-36.0); MEAN CELL VOLUME 84.8 fl (80-96); MEAN PLT VOLUME 7.6 fl (7.5-11.1); MONO % 5.1 % (3.8-10.2); NEUT % 63.2 % (42.8-82.8); PLATELET COUNT 309 10^3/uL (134-434); RBC 4.63 M/mm3 (3.60-5.2); RDW 13.8 % (11.6-15.6)
[2022-04-12] MEDS ORDERED: CLOPIDOGREL BISULFATE 75 MG TABLET (FP) PO SCH (10:00)
[2022-04-12] MEDS ORDERED: metoPROLOL SUCCINATE 25 MG TAB.SR.24H (FP) PO SCH (10:00)
[2022-04-12] MEDS ORDERED: FUROSEMIDE 20 MG TABLET (FP) PO SCH (10:00)
[2022-04-12] MEDS ORDERED: ASPIRIN 81 MG CHEWABLE TABLETS PO SCH (10:00)
[2022-04-12] MEDS ORDERED: ENOXAPARIN NA (PORCINE) 40 MG/0.4 ML DISP.SYRIN SQ SCH (10:00)
[2022-04-12 10:41] LABS: CALCIUM 10.7 mg/dL (8.5-10.1)
[2022-04-12 10:42] LABS: ALBUMIN 3.4 g/dl (3.4-5.0); BLOOD UREA NITROGEN 16.7 mg/dL (7-18); MAGNESIUM 2.1 mg/dL (1.8-2.4)
[2022-04-12 10:44] LABS: CREATININE 0.9 mg/dL (0.55-1.3); TOT PROT 6.6 g/dl (6.4-8.2)
[2022-04-12 10:45] LABS: BILIRUBIN,TOTAL 0.7 mg/dL (0.2-1)
[2022-04-12] MEDS ORDERED: metoPROLOL SUCCINATE 25 MG TAB.SR.24H (FP) PO ONE (11:29)
[2022-04-12] MEDS ORDERED: CLOPIDOGREL BISULFATE 75 MG TABLET (FP) ONE (11:29)
[2022-04-12 11:35] VITALS: RESP 18
[2022-04-12 14:53] VITALS: BP 111/57; PULSE 56; TEMP 98.3
[2022-04-12] MEDS ORDERED: ATORVASTATIN CA 10 MG TABLET (FP) PO SCH (22:00)
[2022-04-12] MEDS ORDERED: ATORVASTATIN CA 40 MG TABLET (FP) PO SCH (22:00)
== END 2022-04-12 16:00 | disposition home or self-care (01) ==
LOC: JER 14:43 → JERBED 20:32
PROVIDERS: ADMIT Internal Medicine
PROC: 3E023GC Introduction of Other Therapeutic Substance into Muscle, Percutaneous Approach (ICD-10-PCS; principal; 2022-04-11)
PROC: 3E013VG Introduction of Insulin into Subcutaneous Tissue, Percutaneous Approach (ICD-10-PCS; 2022-04-11)
DX: R11.0 Nausea (principal); R22.42 Localized swelling, mass and lump, left lower limb; I25.10 Atherosclerotic heart disease of native coronary artery without angina pectoris; I10 Essential (primary) hypertension; Z95.1 Presence of aortocoronary bypass graft; I25.2 Old myocardial infarction; K21.9 Gastro-esophageal reflux disease without esophagitis; E11.9 Type 2 diabetes mellitus without complications; E78.5 Hyperlipidemia, unspecified; Z95.5 Presence of coronary angioplasty implant and graft; R00.1 Bradycardia, unspecified; Z79.4 Long term (current) use of insulin
CPT/HCPCS: 0241U-QW; 36415; 71046-TC-FY; 80053; 80061; 82962; 83735; 84100; 84439; 84443; 84484; 85025; 93005; 93010; 93306-TC; 93971-TC; 96372; 97116-GP; 97161-GP; 99285-25; G0378

== ENCOUNTER → 2022-04-24 | Day surgery (SDC) | payer MEDICARE, OTHER | END | disposition home or self-care (01) | LOC: JRADIR 09:27 | PROVIDERS: ATTEND Internal Medicine Endocrinology, Diabetes & Metabolism | PROC: 0G9G3ZX Drainage of Left Thyroid Gland Lobe, Percutaneous Approach, Diagnostic (ICD-10-PCS; principal; 2022-04-24) | DX: E04.1 Nontoxic single thyroid nodule (principal) | CPT/HCPCS: 10007; 76942; 88173; 88305-TC ==

== ENCOUNTER 2022-06-14 18:13 | Observation (INO) | payer MEDICARE ==
[2022-06-14 20:04] LABS: BASO % 0.8 % (0-2.0); HEMATOCRIT 39.2 % (32.4-45.2); HEMOGLOBIN 13.3 GM/dL (10.7-15.3); LYMPH % 20.2 % (8-40); MCHC 33.9 g/dl (32.0-36.0); MEAN CELL VOLUME 85.6 fl (80-96); MEAN PLT VOLUME 7.3 fl (7.5-11.1); MONO % 5.7 % (3.8-10.2); NEUT % 72.3 % (42.8-82.8); PLATELET COUNT 249 10^3/uL (134-434); RBC 4.59 M/mm3 (3.60-5.2); RDW 14.4 % (11.6-15.6); WHITE BLOOD COUNT 10.6 K/mm3 (4.0-10.0)
[2022-06-14 20:10] LABS: INR 1.01 (0.83-1.09); PROTHROMBIN TIME (PATIENT) 11.6 SEC (9.7-13.0)
[2022-06-14 20:12] LABS: ACTIVATED PTT 31.7 SECONDS (25.2-36.5)
[2022-06-14 20:20] LABS: CHLORIDE 106 mmol/L (98-107); SODIUM 140 mmol/L (136-145)
[2022-06-14 20:21] LABS: CALCIUM 10.5 mg/dL (8.5-10.1)
[2022-06-14 20:23] LABS: ALBUMIN 3.6 g/dl (3.4-5.0); ANION GAP 8 MMOL/L (8-16); BLOOD UREA NITROGEN 18.2 mg/dL (7-18); CO2 26 mmol/L (21-32); GLUCOSE,RANDOM 154 mg/dL (74-106); LIPASE 151 U/L (73-393); MAGNESIUM 2.3 mg/dL (1.8-2.4)
[2022-06-14 20:25] LABS: CREATININE 0.9 mg/dL (0.55-1.3); SGOT/AST 17 U/L (15-37); SGPT/ALT 20 U/L (13-61)
[2022-06-14 20:27] LABS: BILIRUBIN,TOTAL 0.4 mg/dL (0.2-1); TOT PROT 6.8 g/dl (6.4-8.2)
[2022-06-14 20:28] LABS: ALK PHOS 130 U/L (45-117)
[2022-06-14 20:31] LABS: N-TERMINAL BNP 88.5 pg/ml (5-450)
[2022-06-14] MEDS ORDERED: ASPIRIN 81 MG CHEWABLE TABLETS PO ONE (20:36)
[2022-06-14 20:53] LABS: EPI CELLS 26 /uL (0-25.1); HYALINE CASTS 0 /uL (0-3.1); PH,URINE 5.5 (5.0-8.0); URINE APPEARANCE CLOUDY; URINE BACTERIA 664 /uL (0-1359); URINE BILIRUBIN NEGATIVE (NEGATIVE); URINE COLOR YELLOW; URINE GLUCOSE (UA) 3+ (NEGATIVE); URINE KETONE NEGATIVE (NEGATIVE); URINE LEUK ESTERASE 2+ (NEGATIVE); URINE NITRITE NEGATIVE (NEGATIVE); URINE PROTEIN NEGATIVE (NEGATIVE); URINE RBC 12 /uL (0-23.9); URINE UROBILINOGEN 0.2 mg/dL (0.2-1.0); URINE WBC 330 /uL (0-25.8)
[2022-06-14] MEDS ORDERED: ASPIRIN 81 MG CHEWABLE TABLETS ONE (20:55)
[2022-06-14] MEDS ORDERED: SODIUM CHLORIDE 0.9% 500 ML INFUS.BAG IV ONE (20:55)
[2022-06-14] MEDS ORDERED: CEFTRIAXONE 1 GM in DEXTROSE 5%-WATER - 100 ML IVPB ONE (21:41)
[2022-06-14] MEDS ORDERED: CEFTRIAXONE 1 GM/50 ML BAG ONE (21:53)
[2022-06-14 22:21] LABS: YEAST OCCASIONAL (NEGATIVE)
[2022-06-15 06:23] LABS: ALBUMIN 3.3 g/dl (3.4-5.0); BLOOD UREA NITROGEN 16.1 mg/dL (7-18); CALCIUM 10.1 mg/dL (8.5-10.1); MAGNESIUM 2.2 mg/dL (1.8-2.4)
[2022-06-15 06:25] LABS: BASO % 0.8 % (0-2.0); EOS % 1.1 % (0-4.5); HEMATOCRIT 37.3 % (32.4-45.2); HEMOGLOBIN 12.9 GM/dL (10.7-15.3); LYMPH % 32.2 % (8-40); MCH 29.5 pg (25.7-33.7); MCHC 34.5 g/dl (32.0-36.0); MEAN CELL VOLUME 85.7 fl (80-96); MEAN PLT VOLUME 7.1 fl (7.5-11.1); MONO % 5.4 % (3.8-10.2); NEUT % 60.5 % (42.8-82.8); PLATELET COUNT 228 10^3/uL (134-434); RBC 4.36 M/mm3 (3.60-5.2); RDW 14.6 % (11.6-15.6); WHITE BLOOD COUNT 8.7 K/mm3 (4.0-10.0)
[2022-06-15 06:26] LABS: CREATININE 0.7 mg/dL (0.55-1.3); PHOSPHOROUS 3.1 mg/dL (2.5-4.9)
[2022-06-15 06:28] LABS: BILIRUBIN,TOTAL 0.6 mg/dL (0.2-1); TOT PROT 6.1 g/dl (6.4-8.2)
[2022-06-15] MEDS: INSULIN SLIDING SCALE (NOVOLOG) 1 VIAL SQ SCH ×3 (08:00→17:31)
[2022-06-15] MEDS ORDERED: CEFUROXIME AXETIL 250 MG TABLET PO SCH (10:00)
[2022-06-15] MEDS ORDERED: SPIRONOLACTONE 25 MG TABLET PO SCH (10:00)
[2022-06-15] MEDS ORDERED: ENOXAPARIN NA (PORCINE) 40 MG/0.4 ML DISP.SYRIN SQ SCH (10:00)
[2022-06-15] MEDS ORDERED: amLODIPine BESYLATE 5 MG TABLET (FP) PO SCH (10:00)
[2022-06-15] MEDS ORDERED: ASPIRIN 81 MG CHEWABLE TABLETS PO SCH (10:00)
[2022-06-15] MEDS ORDERED: LOSARTAN POTASSIUM 50 MG TABLET PO SCH (10:00)
[2022-06-15] MEDS ORDERED: FUROSEMIDE 20 MG TABLET (FP) PO SCH (10:00)
[2022-06-15] MEDS ORDERED: PATIENT'S OWN MEDICATION (NON-FORMULARY) (Empagliflozin [Jardiance] 10 MG Tablet) PO SCH (10:00)
[2022-06-15] MEDS ORDERED: ISOSORBIDE MONONITRATE 60 MG TAB.SR.24H (FP) PO SCH (10:00)
[2022-06-15] MEDS ORDERED: amLODIPine BESYLATE 5 MG TABLET (FP) ONE (10:56)
[2022-06-15] MEDS ORDERED: LOSARTAN POTASSIUM 50 MG TABLET ONE (10:56)
[2022-06-15] MEDS ORDERED: metoPROLOL SUCCINATE 25 MG TAB.SR.24H (FP) PO ONE (10:57)
[2022-06-15] MEDS ORDERED: ISOSORBIDE MONONITRATE 60 MG TAB.SR.24H (FP) PO ONE (10:57)
[2022-06-15] MEDS ORDERED: ASPIRIN 81 MG CHEWABLE TABLETS ONE (10:57)
[2022-06-15] MEDS ORDERED: FUROSEMIDE 20 MG TABLET (FP) ONE (10:58)
[2022-06-15] MEDS ORDERED: ENOXAPARIN NA (PORCINE) 40 MG/0.4 ML DISP.SYRIN SQ ONE (10:58)
[2022-06-15] MEDS ORDERED: SPIRONOLACTONE 25 MG TABLET ONE (10:58)
[2022-06-15 18:53] VITALS: BP 130/69; PULSE 50; RESP 18; TEMP 98.5; BMI 25.1
[2022-06-15] MEDS ORDERED: ATORVASTATIN CA 10 MG TABLET (FP) PO SCH (22:00)
== END 2022-06-15 18:56 | disposition home health service (06) ==
LOC: JER 18:13 → UNDOADMOB 21:04 → JERBED 21:04 → INTOOBSV 06-15 02:44 → OBSVTOIN 06-15 02:44 → JERBED 06-15 13:25 → J4W 06-15 15:52
PROVIDERS: ADMIT Internal Medicine; ATTEND Internal Medicine
PROC: 3E03329 Introduction of Other Anti-infective into Peripheral Vein, Percutaneous Approach (ICD-10-PCS; principal; 2022-06-15)
PROC: 3E023GC Introduction of Other Therapeutic Substance into Muscle, Percutaneous Approach (ICD-10-PCS; 2022-06-15)
PROC: 3E0337Z Introduction of Electrolytic and Water Balance Substance into Peripheral Vein, Percutaneous Approach (ICD-10-PCS; 2022-06-15)
DX: I25.10 Atherosclerotic heart disease of native coronary artery without angina pectoris (principal); I11.9 Hypertensive heart disease without heart failure; K21.9 Gastro-esophageal reflux disease without esophagitis; Z95.1 Presence of aortocoronary bypass graft; R42 Dizziness and giddiness; N39.0 Urinary tract infection, site not specified; E11.59 Type 2 diabetes mellitus with other circulatory complications; E78.5 Hyperlipidemia, unspecified; I25.2 Old myocardial infarction; Z87.891 Personal history of nicotine dependence; Z95.5 Presence of coronary angioplasty implant and graft; K29.70 Gastritis, unspecified, without bleeding; R74.8 Abnormal levels of other serum enzymes; R07.89 Other chest pain; Z79.4 Long term (current) use of insulin
CPT/HCPCS: 0241U-QW; 36415; 70450-TC; 71045-TC-FY; 80053; 81003; 82306; 82962; 83690; 83735; 83880; 83970; 84100; 84484; 85025; 85610; 85730; 86850; 86900; 86901; 87086; 93005; 93010; 96365; 96372; 99285-25; G0378

== ENCOUNTER 2023-03-21 10:28 | Day surgery (SDC) | payer MEDICARE, OTHER ==
[2023-03-15 15:47] VITALS: BMI 25.6
[2023-03-21] MEDS ORDERED: GLYCOPYRROLATE 0.2 MG/1 ML VIAL ONE (11:01)
[2023-03-21 15:28] VITALS: TEMP 97
[2023-03-21 15:29] VITALS: RESP 16
[2023-03-21 15:33] VITALS: BP 132/56; PULSE 72
== END 2023-03-21 13:05 | disposition home or self-care (01) ==
LOC: FASU-ENDO 10:28
PROVIDERS: ATTEND Internal Medicine Gastroenterology
PROC: 0DBL8ZX Excision of Transverse Colon, Via Natural or Artificial Opening Endoscopic, Diagnostic (ICD-10-PCS; 2023-03-21)
PROC: 0DBM8ZX Excision of Descending Colon, Via Natural or Artificial Opening Endoscopic, Diagnostic (ICD-10-PCS; principal; 2023-03-21 11:20)
DX: R19.7 Diarrhea, unspecified (principal); K63.5 Polyp of colon; K64.1 Second degree hemorrhoids; K57.30 Diverticulosis of large intestine without perforation or abscess without bleeding
CPT/HCPCS: 82962; 88305-TC

== ENCOUNTER 2023-06-06 10:32 | Day surgery (SDC) | payer MEDICARE, OTHER ==
[2023-05-30 15:00] VITALS: BMI 25.2
[2023-06-06 10:53] VITALS: RESP 18
[2023-06-06 11:02] VITALS: BP 136/72; PULSE 49; TEMP 97.6
== END 2023-06-06 11:48 | disposition home or self-care (01) ==
LOC: FASU-ENDO 10:32
PROVIDERS: ATTEND Internal Medicine Gastroenterology
PROC: 0DJ08ZZ Inspection of Upper Intestinal Tract, Via Natural or Artificial Opening Endoscopic (ICD-10-PCS; principal; 2023-06-06 11:30)
DX: Z53.8 Procedure and treatment not carried out for other reasons (principal); R10.13 Epigastric pain
CPT/HCPCS: 82962